=== PATIENT | female | born 1995 | race African-American/Black ===

== ENCOUNTER 2021-11-15 11:56 | Outpatient (RCR) | payer BC, SELFPAY ==
[2021-09-28 15:01] VITALS: BP 110/69; PULSE 83
[2021-10-19 10:27] VITALS: BP 140/66; PULSE 86
[2021-10-26 12:54] VITALS: BP 121/74; PULSE 97
[2021-11-01 12:47] VITALS: BP 141/69; PULSE 94
[2021-11-08 13:17] VITALS: BP 132/86; PULSE 93
[2021-11-15 12:28] VITALS: BP 126/76; PULSE 93
== END 2021-11-26 20:36 | disposition home or self-care (01) ==
LOC: ANHOBOP 11:56
PROVIDERS: PCP Nurse Practitioner Family; Visit Provider Obstetrics & Gynecology
DX: O36.8130 Decreased fetal movements, third trimester, not applicable or unspecified (principal); Z3A.31 31 weeks gestation of pregnancy; Z3A.34 34 weeks gestation of pregnancy; Z3A.35 35 weeks gestation of pregnancy; Z3A.36 36 weeks gestation of pregnancy; Z3A.37 37 weeks gestation of pregnancy; Z3A.38 38 weeks gestation of pregnancy
CPT/HCPCS: 59025

== ENCOUNTER 2021-11-19 13:46 | Inpatient (IN) | payer BC, SELFPAY ==
[2021-11-19] VITALS (12 sets, daily range): BP systolic 117–159; BP diastolic 61–96; PULSE 89–113; RESP 18; TEMP 36.8–37.2; BMI 56.8
[2021-11-19 13:15] LABS: Basophils Percent Auto 0.2 % (0.2-1.2); Eosinophils Absolute Auto 0.1 K/mm3 (0-0.3); Hemoglobin 11.3 g/dL (12.0-15.0); Immature Granulocyte Absolute 0.03 K/mm3 (0.00-0.031); Immature Granulocyte Percent A 0.4 % (0-0.5); Lymphocytes Absolute Auto 1.85 K/mm3 (0.9-3.2); Lymphocytes Percent Auto 22.2 % (18.3-44.2); Mean Corpuscular HGB Conc 32.3 g/dl (32-36); Mean Corpuscular Volume 80.6 fl (80-100); Mean Platelet Volume 10.1 fl (7.4-10.4); Monocytes Absolute Auto 0.5 K/mm3 (0.1-0.6); Monocytes Percent Auto 6.5 % (2.6-8.5); Neutrophils Absolute Auto 5.8 K/mm3 (1.3-6.7); Neutrophils Percent Auto 69.7 % (45.5-73.1); Platelet Count Result 223 k/mm3 (150-375); Red Blood Count 4.34 M/mm3 (4.2-5.4); Red Cell Distribution Width 14.9 % (11.5-14.5); White Blood Count 8.3 K/mm3 (4.5-10.0)
[2021-11-19 13:17] LABS: Add Urine Microscopic? NO; Appearance Urine Clear (Clear); Bilirubin Urine Negative (Negative); Blood Urine Negative (Negative); Color Urine Straw (Yellow); Glucose Urine UA Negative (Negative); Ketones Urine Negative (Negative); Leukocyte Esterase Ur Negative LEU/UL (NEGATIVE); Nitrate Urine Negative (Negative); Protein Urine Negative (Negative); Specific Grav Ur 1.008 (1.001-1.035); Urobilinogen Urine Negative mg/dL (<2.0)
[2021-11-19 13:25] LABS: Creatinine Urine 47.3 mg/dL; Total Protein Urine Random 11 mg/dL; Ur Ttl Prot Creatinine Ratio 0.23 mg/mg (0-0.20)
[2021-11-19 13:30] LABS: Alanine Aminotransferase 9 U/L (4-35); Albumin Level 3.7 g/dL (3.5-5.1); Alkaline Phosphatase 146 U/L (38-126); Anion Gap 5 mmol/L (8-16); Aspartate Amino Transferase 16 U/L (14-36); Bilirubin,Total 0.4 mg/dL (0.2-1.3); Blood Urea Nitrogen 7 mg/dL (7-17); Calcium 9.1 mg/dL (8.4-10.2); Carbon Dioxide 22 mmol/L (22-30); Chloride 104 mmol/L (98-107); Estimated Glomerular Filt Rate > 60; Glucose 87 mg/dL (65-110); Potassium 4.2 mmol/L (3.4-5.0); Sodium 131 mmol/L (137-145); Uric Acid 2.7 mg/dL (2.5-7.5)
--- NOTE | 2021-11-19 13:39 | P.HP_ITS ---
H&P: HPI History of Present Illness Date/Time: 11/19/21 13:39 [facility] Past Medical History Medical History Asthma Surgical History Surgical History History of dilation and curettage 2020 missed AB [place] teeth extracted Family History Family History Grandparent Cervical cancer Father Uterine polyp Social History Social History Smoking status: Never smoker Alcohol intake: unknown Substance use: never Gender identity (if verbalized by the patient): Female Sexual Orientation (if Verbalized by the Patient): Straight or Heterosexual Spiritual care concerns: No Meds Home Medications and Allergies Home Medications Medication Instructions Recorded Confirmed Type PNV cmb#95-ferrous fumarate-FA 1 tablet PO DAILY 11/01/21 11/09/21 History [] aspirin 81 mg PO DAILY 11/01/21 11/09/21 History Allergies Allergy/AdvReac Type Severity Reaction Status Date / Time No Known Allergies Allergy Verified 11/16/21 14:59 Vital Signs Vital Signs - 24 hr 11/19/21 12:46 11/19/21 13:01 11/19/21 13:16 Pulse Rate 92 97 107 H Blood Pressure 150/95 H 159/96 H 149/92 H 11/19/21 13:31 Pulse Rate 110 H Blood Pressure 155/79 H H&P: Results Labs Labs: Short CBC 11/19/21 Range/Units 13:04 WBC 8.3 (4.5-10.0) K/mm3 Hgb 11.3 L (12.0-15.0) g/dL Hct 35.0 L (37.0-47.0) % Plt Count 223 (150-375) k/mm3 BMP 11/19/21 13:04 Sodium 131 L Potassium 4.2 Chloride 104 Carbon Dioxide 22 BUN 7 Creatinine 0.60 L Glucose 87 Calcium 9.1 Liver Function 11/19/21 Range/Units 13:04 Total Bilirubin 0.4 (0.2-1.3) mg/dL AST 16 (14-36) U/L ALT 9 (4-35) U/L Alkaline Phosphatase 146 H (38-126) U/L Albumin 3.7 (3.5-5.1) g/dL Urine 11/19/21 Range/Units 13:04 Urine Color Straw (Yellow) Urine Appearance Clear (Clear) Urine pH 7.0 (5.0-9.0) Ur Specific [place] 1.008 (1.001-1.035) Urine Protein Negative (Negative) mg/dL Urine Glucose (UA) Negative (Negative) mg/dL
--- NOTE | 2021-11-19 13:46 | LDADM ---
This patient, Miguel Ángel Gómez, was admitted to Labor/Delivery/Recovery 108 on 11/19/21 at 13:46. Plans for labor, pain management and were discussed with patient. Patient/family oriented to hospital policies and general routines including ID bracelet, bed and alarms, visiting hours, pain management, procedures, bathroom and other care routines, personal items, smoking policy, room service/diet and guest tray routines, security routines, and visiting hours. Patient/Family are encouraged to report perceived risks to care and to ask questions if they do not understand what they are told or what they should do. See OBIX for further documentation.
--- NOTE | 2021-11-19 13:46 | PM.IMHP ---
H&P: HPI History of Present Illness Date/Time: 11/19/21 13:46 Miguel Ángel is a 26yo @ 38.5 wks (MARIA 11/28/21) who presents from her NST w/ MFM with moderate range BP's. She has never had elevated BPs and denies any GILLESPIE, vision changes, CP, SOB, or RUQ pain. PEC w/u was negative; but she continued having BPs in the 150s/90's. She reports good movement. No ctx, vb or lof. Her is complicated by: - Morbid obesity; BMI >50 - Elevated glucola; normal 3hr OGTT - Gestational hypertension - Mild anemia Chief Complaint: elevated blood pressures Review of Systems Review of Systems: All systems reviewed & are unremarkable except as noted in HPI and below (HPI) [facility] Past Medical History Medical History Asthma Surgical History Surgical History History of dilation and curettage 2020 missed AB [place] teeth extracted Family History Family History Grandparent Cervical cancer Father Uterine polyp Social History Social History Smoking status: Never smoker Alcohol intake: unknown Substance use: never Gender identity (if verbalized by the patient): Female Sexual Orientation (if Verbalized by the Patient): Straight or Heterosexual Spiritual care concerns: No Meds Home Medications and Allergies Home Medications Medication Instructions Recorded Confirmed Type PNV cmb#95-ferrous fumarate-FA 1 tablet PO DAILY 11/01/21 11/09/21 History [] aspirin 81 mg PO DAILY 11/01/21 11/09/21 History Allergies Allergy/AdvReac Type Severity Reaction Status Date / Time No Known Allergies Allergy Verified 11/16/21 14:59 Vital Signs Vital Signs - 24 hr 11/19/21 12:46 11/19/21 13:01 11/19/21 13:16 Pulse Rate 92 97 107 H Blood Pressure 150/95 H 159/96 H 149/92 H 11/19/21 13:31 Pulse Rate 110 H Blood Pressure 155/79 H Exam Const: General: cooperative, comfortable and no acute distress Nutritional Appearance: obese morbidly obese Resp: Effort & Inspection: normal respiratory effort Cardio: Rate: regular rate GI: GI Palp: Yes Soft to palpation and No Tenderness to palpation present (GI) : Other: FHT's: 130's/ mod tristen/ + accels/ no decels - cat 1 TOCO: no ctx Cervix: Membranes: intact presentation: cephalic Skin: General skin exam: normal color Neuro: General: patient oriented x3 Psych: Appearance: grossly normal Affect: normal affect Attitude: cooperative H&P: Results Labs Labs: Short CBC 11/19/21 Range/Units 13:04 WBC 8.3 (4.5-10.0) K/mm3 Hgb 11.3 L (12.0-15.0) g/dL Hct 35.0 L (37.0-47.0) % Plt Count 223 (150-375) k/mm3 BMP 11/19/21 13:04 Sodium 131 L Potassium 4.2 Chloride 104 Carbon Dioxide 22 BUN 7 Creatinine 0.60 L Glucose 87 Calcium 9.1 Liver Function 11/19/21 Range/Units 13:04 Total Bilirubin 0.4 (0.2-1.3) mg/dL AST 16 (14-36) U/L ALT 9 (4-35) U/L Alkaline Phosphatase 146 H (38-126) U/L Albumin 3.7 (3.5-5.1) g/dL Urine 11/19/21 Range/Units 13:04 Urine Color Straw (Yellow) Urine Appearance Clear (Clear) Urine pH 7.0 (5.0-9.0) Ur Specific [place] 1.008 (1.001-1.035) Urine Protein Negative (Negative) mg/dL Urine Glucose (UA) Negative (Negative) mg/dL Assessment and Plan Assessment and plan (1) Gestational hypertension: Qualifiers: Trimester: third trimester Qualified Code(s): O13.3 - Gestational [-induced] hypertension without significant proteinuria, third trimester Code(s): O13.9 - Gestational [-induced] hypertension without significant proteinuria, unspecified trimester Status: Acute (2) : Qualifiers: Weeks of gestation: 38 weeks Qualified Code(s)
--- NOTE | 2021-11-19 13:54 | WPDHPUPDATE1 ---
History and Physical Update Update Date/Time: 11/19/21 13:54 History and Physical has been reviewed, including an updated exam of the patient. There are NO changes in the patient's condition. Risks, benefits, and alternatives have been discussed and questions answered. Patient agrees to proceed with procedure.
[2021-11-19] MEDS: DINOPROSTONE 10 MG VAG INSERT VAGINAL (15:34)
[2021-11-20] VITALS (289 sets, daily range): BP systolic 95–161; BP diastolic 40–101; PULSE 18–244; RESP 18–20; TEMP 36.8–38.4; O2SAT 95–100
[2021-11-20] MEDS: LACTATED RINGERS 1,000 ML 125 ML IV CONT ×3 (06:00→19:48)
--- NOTE | 2021-11-20 08:23 | PM.OBPNLAB ---
Pain Control Date/time seen: 11/20/21 08:23 Pain control: tolerating well Pelvic Exam Dilation (cm): 2 Effacement (%): 70 station: -3 Amniotic membrane status: Intact Contractions Monitor mode: External Contraction frequency: 2 (-4) Contraction pattern: Regular Status status: Category l Assessment and Plan Assessment: induction ongoing Plan: continuous present management Comments: - s/p cervidil overnight - dietrich balloon with 30cc of fluid placed @ 0815 - low dose pitocin to max of [address] if contractions space out - anesthesia consult PRN pain or IV pains meds - Continuous monitoring; reassuring currently
[2021-11-20] MEDS: ONDANSETRON INJ 4 MG/2 ML VIAL IV PUSH (08:28)
[2021-11-20] MEDS: fentaNYL CITRATE INJ (*CRX) 100 MCG/2 ML VIAL IV PUSH (08:29)
[2021-11-20] MEDS: LACTATED RINGERS 1,000 ML 999 ML IV CONT (09:09)
--- NOTE | 2021-11-20 09:49 | WPDANESEPPF ---
Anes - Initial Pre Proc Eval Procedure: labor epidural Date/Time: 11/20/21 09:49 Surgeon: Timmy Peña MD Pre Op Diagnosis: labor pain Pre Op Diagnosis: Induction of Labor for HIP Patient Data Age: 26 Gender: F Height: 1.57 m Weight: 141 kg Last Vital Signs Temp 36.8 C 11/20/21 08:00 Pulse 84 11/20/21 09:48 Resp 18 11/20/21 05:52 BP 139/78 11/20/21 09:48 Pulse Ox 97 11/20/21 09:46 Allergies Allergy/AdvReac Type Severity Reaction Status Date / Time No Known Allergies Allergy Verified 11/16/21 14:59 Home Medications Medication Instructions Recorded Confirmed Type PNV cmb#95-ferrous fumarate-FA 1 tablet PO DAILY 11/01/21 11/09/21 History [] aspirin 81 mg PO DAILY 11/01/21 11/09/21 History Laboratory Tests 11/19/21 11/19/21 11/19/21 13:04 13:04 13:04 WBC 8.3 K/mm3 K/mm3 (4.5-10.0) RBC 4.34 M/mm3 M/mm3 (4.2-5.4) Hgb 11.3 g/dL L g/dL (12.0-15.0) Hct 35.0 % L % (37.0-47.0) MCV 80.6 fl fl (80-100) MCH 26.0 pg pg (26-34) MCHC 32.3 g/dl g/dl (32-36) RDW 14.9 % H % (11.5-14.5) Plt Count 223 k/mm3 k/mm3 (150-375) MPV 10.1 fl fl (7.4-10.4) Immature Gran % (Auto) 0.4 % % (0-0.5) Neut % (Auto) 69.7 % % (45.5-73.1) Lymph % (Auto) 22.2 % % (18.3-44.2) [place] % (Auto) 6.5 % % (2.6-8.5) Eos % (Auto) 1.0 % % (0-4.4) Baso % (Auto) 0.2 % % (0.2-1.2) Lymph # (Auto) 1.85 K/mm3 K/mm3 (0.9-3.2) [place] # (Auto) 0.5 K/mm3 K/mm3 (0.1-0.6) Eos # (Auto) 0.1 K/mm3 K/mm3 (0-0.3) Baso # (Auto) 0.0 K/mm3 K/mm3 (0.0-0.1) Abs Immat Gran (auto) 0.03 K/mm3 K/mm3 (0.00-0.031) Absolute Neuts (auto) 5.8 K/mm3 K/mm3 (1.3-6.7) Absolute Nucleated RBC 0.0 K/mm3 K/mm3 (0.0-0.012) Nucleated RBC % 0.0 % % (0.0-0.2) Sodium Potassium Chloride Carbon Dioxide Anion Gap BUN Creatinine Estim Creat Clear Calc Estimated GFR Glucose Uric Acid Calcium Total Bilirubin AST ALT Alkaline Phosphatase Total Protein Albumin Urine Color Straw (Yellow) Urine Appearance Clear (Clear) Urine pH 7.0 (5.0-9.0) Ur Specific [place] 1.008 (1.001-1.035) Urine Protein Negative mg/dL mg/dL (Negative) Urine Glucose (UA) Negative mg/dL mg/dL (Negative) Urine Ketones Negative mg/dL mg/dL (Negative) Ur Blood (Man) Negative (Negative) Urine Nitrate Negative (Negative) Urine Bilirubin Negative (Negative) Urine Urobilinogen Negative mg/dL mg/dL (<2.0) Ur Leukocyte Esterase Negative MICHELLE/UL MICHELLE/UL (NEGATIVE) U Random Total Protein 11 mg/dL mg/dL Urine Creatinine 47.3 mg/dL mg/dL Protein/Creat Ratio 2 0.23 mg/mg H mg/mg (0-0.20) RPR Blood Type Antibody Screen 11/19/21 11/19/21 11/19/21 13:04 15:17 15:17 WBC RBC Hgb Hct MCV MCH MCHC RDW Plt Count MPV Immature Gran % (Auto) Neut % (Auto) Lymph % (Auto) [place] % (Auto) Eos % (Auto) Baso % (Auto) Lymph # (Auto) [place] # (Auto) Eos # (Auto) Baso # (Auto) Abs Immat Gran (auto) Absolute Neuts (auto) Absolute Nucleated RBC Nucleated RBC % Sodium 131 mmol/L L mmol/L (137-145) Potassium
--- NOTE | 2021-11-20 11:20 | PM.OBPNLAB ---
Pain Control Date/time seen: 11/20/21 11:20 Pain control: epidural Pelvic Exam Dilation (cm): 4 Effacement (%): 70 station: -3 Amniotic membrane status: Ruptured (AROM, clear 1115) Contractions Monitor mode: Internal (placed this exam) Contraction frequency: 4 Contraction pattern: Regular Status status: Category l Assessment and Plan Assessment: induction ongoing Plan: continuous present management Comments: - Internalized on this exam for better monitoring due to morbid obesity - Pitocin augmentation if contractions space out or are not adequate
[2021-11-20] MEDS: OXYTOCIN 30 UNITS/NS 500 ML 30 UNITS/500 ML BAG IV CONT (12:04)
--- NOTE | 2021-11-20 21:30 | PM.OBPNLAB ---
Pain Control Date/time seen: 11/20/21 21:30 Pain control: epidural Pelvic Exam Dilation (cm): 7 Effacement (%): 80 station: -1 Amniotic membrane status: Ruptured (AROM, clear 1115) Contractions Monitor mode: Internal (placed this exam) Contraction frequency: 2 (-3) Contraction pattern: Regular Contraction intensity: Strong/Firm (~70mvu per contraction) Status status: Category l Assessment and Plan Pitocin rate (mU/min): 22 Assessment: active labor Comments: - Pt noted to have fever; diagnosed to chorioamnionitis-- will start amp/gent - Active labor and yari adequately; if no cervical change in 4 hours, would be for c/s - Anesthesia for epidural bolus for better left sided pain control
[2021-11-20] MEDS: AMPICILLIN 2 GM/NS 100 ML 2 GM/100 ML BAG 200 GM XX (22:05)
[2021-11-20] MEDS: GENTAMICIN 80MG/SOD CHL 50 ML 80 MG/50 ML BAG 100 MG IVPB (22:40)
[2021-11-21] VITALS (38 sets, daily range): BP systolic 120–146; BP diastolic 62–106; PULSE 71–133; RESP 16–18; TEMP 36.7–36.9; O2SAT 96–100
--- NOTE | 2021-11-21 01:12 | PM.OBPRVD ---
OB - Delivery Note Procedure Delivery date: 11/21/21 events: Induced HTN and Labor Induction Intrapartal events: Febrile (chorioamnionitis) Induction method: per cervidil protocol Delivery augmentation: rupture of membranes and pitocin Delivery monitor: internal FHT and internal uterine Route of delivery: Laceration Description: Perineal - 1st Degree Delivery repair: vicryl Specimen: Yes (placenta) Quantitative Blood Loss (ml): 350 Anesthesia type: Epidural Disposition: floor Baby Date of : 11/21/21 Time of : 00:55 Weeks of gestation at delivery: 39 Infant gender: Female Weight (pounds): 7 Weight (ounces): 8 presentation: vertex position: Left Occiput Anterior Placenta delivery description: Expressed cord vessel description: 3 Vessels score one minute: 7 score five minutes: 9 Narrative: Miguel Ángel progressed to complete dilation with strong urge to push. She pushed for approximately 15 minutes with good maternal effort and delivered the head over intact perineum. No nuchal cord was palpated. She easily delivered the 's shoulders and body without complication. The infant was immediately placed skin to skin. The umbilical cord was clamped and cut and she was taken to the warmer for evaluation and with stimulation, a cry was heard. With Pitocin running and gentle downward traction on the cord, the placenta delivered without complications. A bimanual massage was performed and good tone with minimal bleeding was noted. She was examined and a first-degree perineal laceration was noted. The perineal laceration was repaired in the normal fashion using 2 0 Vicryl. Good hemostasis was noted. Sponge, lap, instrument, and needle counts were correct at the end of the procedure. Mom and baby were left bonding in the birthing suite in a stable condition. [facility] Delivery Billing Delivery Delivery: Delivery Charge
[2021-11-21] MEDS: OXYTOCIN 30 UNITS/NS 500 ML 30 UNITS/500 ML BAG 125 UNITS IV CONT (01:22)
[2021-11-21] MEDS: ACETAMINOPHEN 325 MG TABLET 650 MG PO ×4 (02:12→19:38)
[2021-11-21] MEDS: IBUPROFEN 600 MG TABLET PO ×3 (02:13→16:17)
[2021-11-21 03:41] LABS: Glucose Point of Care 132 mg/dl (65-105)
[2021-11-21] MEDS: AMPICILLIN 2 GM/NS 100 ML 2 GM/100 ML BAG 200 GM XX ×3 (04:44→16:18)
[2021-11-21] MEDS: GENTAMICIN 80MG/SOD CHL 50 ML 80 MG/50 ML BAG 100 MG IVPB ×2 (07:03→15:14)
[2021-11-21] MEDS: DOCUSATE SODIUM 100 MG CAPSULE PO ×2 (07:52→16:17)
[2021-11-21] MEDS: MULTIVIT/MIN/PREN/FOL AC/IRON TABLET 1 TAB PO (07:52)
--- NOTE | 2021-11-21 16:58 | WPDANLDPN2 ---
Anes-Prog Note L&D Date/Time: 11/21/21 16:58 Comfortable throughout: labor and delivery Neuraxial method: epidural Epidural/Spinal procedure site: clean & non-tender Neuro status: Neuro function grossly intact. Cardiovascular status: normal Respiratory status: normal Airway patency: baseline Mental status: baseline Post-Op hydration status: normal Vital Signs: Last Vital Signs Temp 98.4 F 11/21/21 12:00 Pulse 80 11/21/21 12:00 Resp 16 11/21/21 12:00 BP 127/68 11/21/21 12:00 Pulse Ox 100 11/21/21 12:00 Pain score (VAS): 11/01 I/O: Intake & Output 11/21/21 11/21/21 11/21/21 07:59 15:59 23:59 Intake Total 450 750 Output Total 730 750 Balance -280 0 Post-procedural complaints: none Patient feedback: Patient satisfied with anesthetic care.
[2021-11-22] VITALS (9 sets, daily range): BP systolic 128–156; BP diastolic 69–90; PULSE 69–87; RESP 16–18; TEMP 36.3–36.9; O2SAT 99–100
[2021-11-22] MEDS: IBUPROFEN 600 MG TABLET PO ×2 (03:36→13:09)
[2021-11-22 04:32] LABS: Basophils Percent Auto 0.2 % (0.2-1.2); Eosinophils Absolute Auto 0.2 K/mm3 (0-0.3); Eosinophils Percent Auto 1.1 % (0-4.4); Hematocrit 33.4 % (37.0-47.0); Hemoglobin 10.7 g/dL (12.0-15.0); Immature Granulocyte Percent A 0.6 % (0-0.5); Lymphocytes Absolute Auto 3.94 K/mm3 (0.9-3.2); Lymphocytes Percent Auto 24.4 % (18.3-44.2); Mean Corpuscular Volume 81.3 fl (80-100); Mean Platelet Volume 10.7 fl (7.4-10.4); Monocytes Percent Auto 6.4 % (2.6-8.5); Neutrophils Absolute Auto 10.9 K/mm3 (1.3-6.7); Neutrophils Percent Auto 67.3 % (45.5-73.1); Platelet Count Result 257 k/mm3 (150-375); Red Blood Count 4.11 M/mm3 (4.2-5.4); Red Cell Distribution Width 15.3 % (11.5-14.5); White Blood Count 16.1 K/mm3 (4.5-10.0)
[2021-11-22 04:44] LABS: Alanine Aminotransferase 9 U/L (4-35); Albumin Level 3.3 g/dL (3.5-5.1); Alkaline Phosphatase 129 U/L (38-126); Anion Gap 5 mmol/L (8-16); Aspartate Amino Transferase 20 U/L (14-36); Bilirubin,Total 0.3 mg/dL (0.2-1.3); Blood Urea Nitrogen 7 mg/dL (7-17); Calcium 8.8 mg/dL (8.4-10.2); Carbon Dioxide 20 mmol/L (22-30); Chloride 106 mmol/L (98-107); Estimated CRCL calculation 143 ml/min; Estimated Glomerular Filt Rate > 60; Glucose 81 mg/dL (65-110); Sodium 131 mmol/L (137-145)
[2021-11-22 06:08] LABS: Rapid Plasma Reagin Non-Reactive (NonReactive)
[2021-11-22] MEDS: ACETAMINOPHEN 325 MG TABLET 650 MG PO ×2 (07:52→17:16)
[2021-11-22] MEDS: DOCUSATE SODIUM 100 MG CAPSULE PO ×2 (07:53→17:17)
[2021-11-22] MEDS: MULTIVIT/MIN/PREN/FOL AC/IRON TABLET 1 TAB PO (07:53)
--- NOTE | 2021-11-22 09:22 | PC.NURSE ---
0823 - 0844 Introductions were made and mother/father led the discussion of her desires and plans to feeding her baby. Reviewed handwashing to prevent infection before and after taking care of her baby. Mother verbalizes she is able to independently latch effectively at times, pump human milk and parents are supplementing infant with formula. Discussed how to watch for early feeding cues, place infant skin to skin, then feeding baby when showing readiness or every 2-3 hours. Reviewed positioning/alignment with the use of the mom and baby guide and demonstration. Mom moves well into the football position. Encouraged mother with infant skin to skin, then to the left breast in football position using nipple to nose with asymmetrical 140-degree latch. Infants swallow bursts heard occasionally. She denies any nipple discomfort. Reviewed there is to be no pain with , how to detach from the breast, visuals to watch for to confirm effective . Reviewed effective latching with resources tool and hand out visual. Nipple tenderness is relieved with improving positioning and effective latching. Infant was able to maintain effective latch. Mother is feeding as needed to meet requirements. Baby detached and nipple was not misshaped. Assisted mom with baby to the right breast in the football position, baby latched effectively. Educated parents of listening and watching for swallowing. has swallowing bursts of 2:1 and 3:1 with rocking motion and pauses. Dad assist with being assertive with drinking at the breast and not sleeping. Mother understands the importance of skin to skin with baby. Mother has verbalized understanding/ demonstrated watching for feeding cues for responsive feeding or how to stimulate infant to initiate from the start of the last feeding. Mother voiced understanding to feed when she sees feeding cues, 8-12 times in 24 hours approximately every 2-3 hours from the start of the last feeding or she has discomfort with nursing. Dr. Saini entered the room. Reported to primary RN. 0944 - Offered syringes for feeding infant human milk that was expressed earlier. Dad had put the 1-3ml of human milk into the 2 oz formula bottle and was going to feed the baby the bottle. Reviewed mothers desires and plans to feed the infant for 6 months. Education given on infants needs at this time. Parents shown burping, swaddling and reviewed content sleeping infant. Parents verbalized understanding and will call for assistance with the next feeding.
--- NOTE | 2021-11-22 12:13 | PM.OBPNVD ---
OB - PN: Subj Subjective Date/time seen: 11/22/21 12:13 Narrative: PPD#1 Miguel Ángel reports doing well today. 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 Her pain is controlled. Afebrile; completed 24 hours of antibiotics. She is tolerating regular diet, voiding, passing gas, and ambulating without issues. She is breast feeding; having some issues. Had a small panic attack; but declines medications at this time. OB - PN: Obj Data Labs CBC & Chem 7: 11/22/21 03:45 11/22/21 03:45 Labs: Laboratory Results - last 24 hr 11/19/21 11/22/21 11/22/21 15:17 03:45 03:45 WBC 16.1 H RBC 4.11 L Hgb 10.7 L Hct 33.4 L MCV 81.3 MCH 26.0 MCHC 32.0 RDW 15.3 H Plt Count 257 MPV 10.7 H Immature Gran % (Auto) 0.6 H Neut % (Auto) 67.3 Lymph % (Auto) 24.4 [place] % (Auto) 6.4 Eos % (Auto) 1.1 Baso % (Auto) 0.2 Lymph # (Auto) 3.94 H [place] # (Auto) 1.0 H Eos # (Auto) 0.2 Baso # (Auto) 0.0 Abs Immat Gran (auto) 0.10 H Absolute Neuts (auto) 10.9 H Absolute Nucleated RBC 0.0 Nucleated RBC % 0.0 Sodium 131 L Potassium 4.0 Chloride 106 Carbon Dioxide 20 L Anion Gap 5 L BUN 7 Creatinine 0.70 Estim Creat Clear Calc 143 Estimated GFR > 60 Glucose 81 Calcium 8.8 Total Bilirubin 0.3 AST 20 ALT 9 Alkaline Phosphatase 129 H Total Protein 6.0 L Albumin 3.3 L RPR Non-reactive OB - PN A/P Assessment and Plan (1) Normal vaginal delivery of first : Code(s): O80 - Encounter for full-term uncomplicated delivery Status: Acute (2) Gestational hypertension: Qualifiers: Trimester: third trimester Qualified Code(s): O13.3 - Gestational [-induced] hypertension without significant proteinuria, third trimester Code(s): O13.9 - Gestational [-induced] hypertension without significant proteinuria, unspecified trimester Status: Acute Plan day: 1 Plan: routine care and discharge home (tomorrow) Comments: - Pelvic rest; take meds as prescribed - ER return precautions: fever, n/v/abd pain, bleeding, HTN Time Spent With Patient Time: Total time spent is greater than 50% in coordination of care (as documented) at patient's floor/unit and/or counseling patient: Review of Systems Constitutional: Constitutional: Denies chills, Denies fever(s) and Denies headache(s) Eyes: Eyes: Denies change in vision ENT: Denies dizziness and Denies headache(s) Cardiovascular: Cardiovascular: Denies chest pain, Denies palpitations and Denies dyspnea Respiratory: Respiratory: Denies cough and Denies dyspnea Gastrointestinal: Gastrointestinal: Denies nausea and Denies vomiting Neurologic: Denies dizziness and Denies headache(s) Endocrine: Endocrine: Denies palpitations Exam Const: General: cooperative, comfortable and no acute distress Nutritional Appearance: obese morbidly obese Orientation/consciousness: patient oriented x3 Resp: Effort & Inspection: normal respiratory effort Auscultation: clear to auscultation bilaterally Cardio: Rate: regular rate GI: Inspection: non-distended GI Palp: No abdominal tenderness and Yes Soft to palpation Auscultation: normal bowel sounds : Other: fundus firm Skin: General skin exam: normal color Neuro: General: patient oriented x3 Extrem: General: normal to inspection Psych: Appearance: grossly normal Affect: normal affect Attitude: cooperative
[2021-11-22] MEDS: ZOLPIDEM TARTRATE (*CRX) 5 MG TABLET PO (21:13)
[2021-11-23] MEDS: IBUPROFEN 600 MG TABLET PO ×2 (00:11→11:19)
[2021-11-23 05:00] VITALS: BP 138/85
[2021-11-23 07:45] VITALS: BP 133/78; PULSE 75; RESP 18; TEMP 36.7; O2SAT 100
[2021-11-23] MEDS: MULTIVIT/MIN/PREN/FOL AC/IRON TABLET 1 TAB PO (11:23)
[2021-11-23] MEDS: DOCUSATE SODIUM 100 MG CAPSULE PO (11:23)
--- NOTE | 2021-11-23 14:20 | PC.NURSE ---
1415 - Consulted with patient for follow up. Reviewed feeding cues, frequencies 8-12 times in a 24 hour period about 2-3 hours watching for feeding cues of readiness. Discussed supplementing, duration of feedings, feeding elimination flow sheet, and signs of adequate intake. Mom states she has been infant since her milk came in but didn't call for latch assistance. Baby is in the bassinet with a pacifier. Reinforced teaching of feeding cues, burping baby and no discomfort with . Mom states there is no discomfort with . Reported to RN mother has been supplementing formula and will breastfeed at home. Discussed feeding frequencies. Mother holding and encouraged feeding when cues are seen. Infant has had an irregular feeding schedule and adequate feedings in 24 hours. Reinforced teaching of feeding baby with mom and baby guide as added resource, gassy tummy, sucking for comfort, burping and good feeding frequencies of more like 3 hours and not every hour. Instructed mother to call out for RN assistance if she is unable to latch infant for feeding or she has discomfort with nursing before she leaves for home. Mother voiced understanding of watching for feeding cues to promote responsive feedings and milk production approximately every 3 hours and other information provided.
--- NOTE | 2021-11-23 17:10 | PM.OBDSVD ---
DS: Admitting Diagnosis Discharge Date 11/23/21 Admitting Diagnosis Elevated blood pressures DS: Discharge Diagnosis Discharge Diagnosis (1) Morbid obesity: Code(s): E66.01 - Morbid (severe) obesity due to excess calories Status: Acute (2) Normal vaginal delivery of first : Code(s): O80 - Encounter for full-term uncomplicated delivery Status: Acute (3) Gestational hypertension: Qualifiers: Trimester: third trimester Qualified Code(s): O13.3 - Gestational [-induced] hypertension without significant proteinuria, third trimester Code(s): O13.9 - Gestational [-induced] hypertension without significant proteinuria, unspecified trimester Status: Acute OB - DS: Summary OB Procedures : NST and Ultrasound OB Procedures Intrapartum: Spontaneous Vag Delivery OB Procedures: : None Peripartum Data Infant Delivery Method: Natural Vaginal Laceration Description: Perineal - 1st Degree complications: none [place] 1: Gender: Female Disposition of : home Status at Discharge Functional status at discharge: independent ambulation Overall status at discharge: patient is back to baseline Time Spent with Patient Time attestation: Total time spent providing and/or coordinating discharge services: Time spent: Less than 30 minutes Exam Const: General: cooperative, comfortable and no acute distress Nutritional Appearance: obese morbidly obese Orientation/consciousness: patient oriented x3 Resp: Effort & Inspection: normal respiratory effort Auscultation: clear to auscultation bilaterally Cardio: Rate: regular rate GI: Inspection: non-distended GI Palp: No abdominal tenderness and Yes Soft to palpation Auscultation: normal bowel sounds : Other: fundus firm Skin: General skin exam: normal color Neuro: General: patient oriented x3 Extrem: General: normal to inspection Psych: Appearance: grossly normal Affect: normal affect Attitude: cooperative DS: Data Data Completed and Pending Pending studies at discharge: Pending at discharge 11/21/21 00:59 Surgical [PTH] Routine Discharge Plan Discharge Attending physician on discharge: Trina Chaudhary Discharging Clinician: Trina Chaudhary Anticipated Discharge Date/Time: 11/23/21 11:00 Patient Disposition: Home, Self-Care Activity: may shower, may drive after 2 weeks and pelvic rest Diet: regular Discharge Instructions: Education: Mom and Baby Guide Given to: Mother Follow-Up: Call your delivering provider's office for an appointment to be seen in: 2 Weeks Mom and baby should come to the [facility] for the follow-up appointment. Appointment Date/Time: Wednesday, November 24, 2021 at 11:00 am What to expect at your follow-up visit: Physical Assessment Call [phone] if you are unable to keep your appointment time. BREAST CARE: * Wear a snug supportive bra. * For engorgement discomfort: Breast Feeding: * Apply warm moist washcloths * Express milk as needed to relieve engorgement * Wear loose clothing Bottle Feeding: * May apply ice packs * For sore nipples: * Identify correct latch-on * Apply warm moist washcloths before and after nursing * Air dry nipples after nursing * May apply Lansinoh cream to nipples EPISIOTOMY/PERINEAL CARE: * Until bleeding stops, use your susan bottle after urinating * Change your pad frequently throughout the day * You may take sitz baths several times a day (fill your bathtub with warm water and soak for 20 minutes.) Do NOT bathe in the water * No tub baths until seen by your physician - You may shower ACTIVITY: * Rest as much as possible. * Do not exercise or lift anything heavier than your baby (such as laundry or other children.) * Avoid stairs or driving as
--- NOTE | 2021-11-23 19:05 | PC.NURSE ---
1200 Patient viewed the discharge video Mother & Baby Care, The First Two Weeks . Patient was given the opportunity and encouraged to ask questions. Patient verbalized understanding of information shared and has been given the mother/baby guide for home reference.
[2021-11-24 11:05] VITALS: BP 140/93; PULSE 85; RESP 20; TEMP 37.2; O2SAT 100
== END 2021-11-23 15:37 | disposition home or self-care (01) | DRG 807 ==
LOC: ANHOBOP 13:49 → ANHLDR 13:49 → ANHOB2 11-22 12:16 → ANHLDR 11-25 14:45 → ANHOB2 11-25 14:45
PROVIDERS: Admitting Provider Obstetrics & Gynecology; PCP Nurse Practitioner Family; Visit Provider Obstetrics & Gynecology
DX: O41.1230 Chorioamnionitis, third trimester, not applicable or unspecified (principal); Z37.0 Single live birth; O99.214 Obesity complicating childbirth; E66.01 Morbid (severe) obesity due to excess calories; O13.4 Gestational [pregnancy-induced] hypertension without significant proteinuria, complicating childbirth; O99.02 Anemia complicating childbirth; D64.9 Anemia, unspecified; O70.0 First degree perineal laceration during delivery; O76 Abnormality in fetal heart rate and rhythm complicating labor and delivery; Z3A.38 38 weeks gestation of pregnancy
CPT/HCPCS: 36415; 80053; 81003; 82570; 82948; 84156; 84550; 85025; 86592; 86850; 86900; 86901; 87086; 88307; A9270; J0290; J1580; J2405; J2590; J2795; J3010; J7120

== ENCOUNTER 2024-04-29 11:21 | Outpatient (CLI) | payer BC, SELFPAY ==
[2024-04-29 12:07] LABS: Beta HCG Quantitative 455.77 mIU/ML
== END 2024-04-29 11:22 | disposition home or self-care (01) ==
LOC: ANHLAB 11:23
PROVIDERS: PCP Internal Medicine; Visit Provider Student in an Organized Health Care Education/Training Program
DX: N91.1 Secondary amenorrhea (principal); E23.0 Hypopituitarism
CPT/HCPCS: 36415; 84144; 84702

== ENCOUNTER 2024-05-01 13:20 | Outpatient (CLI) | payer BC, SELFPAY | END 2024-05-01 13:21 | disposition home or self-care (01) | LOC: ANHLAB 13:21 | PROVIDERS: PCP Internal Medicine; Visit Provider Student in an Organized Health Care Education/Training Program | DX: Z34.90 Encounter for supervision of normal pregnancy, unspecified, unspecified trimester (principal); Z3A.38 38 weeks gestation of pregnancy | CPT/HCPCS: 36415; 84702 ==

== ENCOUNTER 2024-06-01 10:25 | Outpatient (CLI) | payer BC, SELFPAY ==
[2024-06-01 12:03] LABS: Basophils Percent Auto 0.2 % (0.2-1.2); Eosinophils Absolute Auto 0.1 K/mm3 (0-0.3); Eosinophils Percent Auto 0.8 % (0-4.4); Hemoglobin 11.3 g/dL (12.0-15.0); Immature Granulocyte Absolute 0.03 K/mm3 (0.00-0.031); Immature Granulocyte Percent A 0.5 % (0-0.5); Lymphocytes Absolute Auto 1.57 K/mm3 (0.9-3.2); Lymphocytes Percent Auto 25.5 % (18.3-44.2); Mean Corpuscular HGB Conc 32.3 g/dl (32-36); Mean Corpuscular Hemoglobin 27.2 pg (26-34); Mean Corpuscular Volume 84.1 fl (80-100); Mean Platelet Volume 9.3 fl (7.4-10.4); Monocytes Absolute Auto 0.4 K/mm3 (0.1-0.6); Monocytes Percent Auto 6.2 % (2.6-8.5); Neutrophils Absolute Auto 4.1 K/mm3 (1.3-6.7); Neutrophils Percent Auto 66.8 % (45.5-73.1); Platelet Count Result 246 k/mm3 (150-375); Red Blood Count 4.16 M/mm3 (4.2-5.4); White Blood Count 6.2 K/mm3 (4.5-10.0)
[2024-06-01 12:16] LABS: Alanine Aminotransferase 11 U/L (6-35); Albumin Level 3.8 g/dL (3.5-5.1); Alkaline Phosphatase 68 U/L (38-126); Anion Gap 10 mmol/L (4-12); Aspartate Amino Transferase 15 U/L (14-36); Bilirubin,Total 0.5 mg/dL (0.2-1.3); Blood Urea Nitrogen 6 mg/dL (7-17); Calcium 8.7 mg/dL (8.4-10.2); Carbon Dioxide 25 mmol/L (22-30); Chloride 98 mmol/L (98-107); Estimated Glomerular Filt Rate > 60; Glucose 97 mg/dL (65-110); Glucose 1 Hour PP 50gm Dose 97 mg/dL; Potassium 3.4 mmol/L (3.4-5.0); Sodium 133 mmol/L (137-145)
[2024-06-01 12:17] LABS: Creatinine Urine 67.3 mg/dL; Total Protein Urine Random 8 mg/dL
[2024-06-01 12:56] LABS: HIV 1/2 Ab P24 Ag Result Negative (Negative)
[2024-06-01 13:07] LABS: Hemoglobin A1C 5.3 % (<5.7)
[2024-06-01 13:07] LABS: Thyroid Stimulating Hormone Reflex 0.459 uIU/mL (0.465-4.68)
[2024-06-01 14:33] LABS: Rapid Plasma Reagin Non-Reactive (NonReactive)
[2024-06-01 15:31] LABS: Free T4 Free Thyroxine Reflex 1.29 ng/dL (0.78-2.19)
[2024-06-01 16:13] LABS: Total Triiodothyronine (T3) 1.62 NG/ML (0.97-1.69)
[2024-06-02 08:40] LABS: Hepatitis B Surface Antigen Negative (Negative)
[2024-06-03 12:22] LABS: Rubella IgG Antibody 12.5 IU/ML
[2024-06-03 12:28] LABS: CMV IgG Antibody >10.00 U/mL
[2024-06-03 15:26] LABS: Varicella IgG Antibody <135.00 index
== END 2024-06-01 10:26 | disposition home or self-care (01) ==
LOC: ANHLAB 10:26
PROVIDERS: PCP Internal Medicine; Visit Provider Obstetrics & Gynecology
DX: E66.01 Morbid (severe) obesity due to excess calories (principal); Z87.59 Personal history of other complications of pregnancy, childbirth and the puerperium; N91.2 Amenorrhea, unspecified
CPT/HCPCS: 36415; 80053; 81050; 82570; 82947; 83036; 84156; 84439; 84443; 84480; 84702; 85025; 85660; 86592; 86644; 86703; 86747; 86762; 86787; 86850; 86900; 86901; 87086; 87088; 87340; G0432

== ENCOUNTER 2024-08-05 12:39 | Emergency (ER) | payer BC, SELFPAY ==
[2024-08-05 12:53] VITALS: BP 147/82; PULSE 87; RESP 16; TEMP 36.8; O2SAT 100
--- NOTE | 2024-08-05 13:06 | ED.GENADULT ---
HPI - General Adult General Chief complaint: Abdominal Pain Stated complaint: abd pain - 18 weeks gestation Time Seen by Provider: 08/05/24 12:55 History of Present Illness HPI narrative: 29-year-old female that is presents emergency department for evaluation for lower abdominal pain. Patient states the pain does feel similar to her previous round ligament pain but she felt this was just more intense. Patient states while she was driving here she did begin to feel the baby moving which is the 1st time during this and this also caused some concern for patient initially presented to [facility] and she was referred to the emergency department since she is under 20 weeks . Patient denies any current nausea vomiting denies any constipation or diarrhea denies any vaginal bleeding discharge or fluid. Related Data Home Medications Medication Instructions Recorded Confirmed docosahexaenoic acid 200 mg mg PO 05/29/24 07/24/24 capsule ( DHA) Allergies Allergy/AdvReac Type Severity Reaction Status Date / Time No Known Allergies Allergy Verified 08/05/24 13:38 Review of Systems Review of Systems: All systems reviewed & are unremarkable except as noted in HPI and below PMFSH Past Medical History Medical History Asthma Surgical History Surgical History History of dilation and curettage 2020 missed AB [place] teeth extracted Family History Family History Grandparent Cervical cancer Father Uterine polyp Social History Social History Smoking status: Never smoker Alcohol intake: current Alcohol use details: soically Substance use: never Substance use type: does not use Lack of Transportation: No Lack of Food: Never True Current Housing: I Have Housing Concerned About Future Housing: No Difficulty Paying Gas/Electric Bills: No Difficulty Paying for Meds: No Currently Unemployed: No Education: High School Diploma/GED Difficulty w/ Childcare or Family Care: No Living arrangements: with family Occupation/Education: occupation Gender identity (if verbalized by the patient): Female Sexual Orientation (if Verbalized by the Patient): Straight or Heterosexual Spiritual care concerns: No Exam Narrative: APPEARANCE: Well appearing, no pain, no distress, well-nourished. HEAD: normocephalic, atraumatic. EYES: PERRLA/EOMI, conjunctivae clear. NOSE: Normal no drainage EARS:TMS clear with good light reflex. THROAT: Pharynx clear, no exudate. NECK: Supple. No adenopathy, no masses. RESPIRATORY: Airway patent, respirations nonlabored. Clear to auscultation bilaterally, no rales, rhonchi, wheezing. CARDIOVASCULAR: Regular rate and rhythm without murmurs rubs or gallops. ABDOMINAL: Gravid abdomen with no focal tenderness to palpation MUSCULOSKELETAL: Moves all extremities. Strength/ROM intact, No edema, No calf tenderness. NEURO: Alert. Cranial nerves II through XII intact. Good gait. Good coordination SKIN: Warm, dry. Normal Color Course Course Emergency Course: Patient felt improved with rehydration and patient was discharged home. Vital Signs Vital signs: Vital Signs Temperature 98.3 F 08/05/24 12:53 Pulse Rate 87 08/05/24 12:53 Respiratory Rate 16 08/05/24 12:53 Blood Pressure 147/82 H 08/05/24 12:53 Pulse Oximetry 100 08/05/24 12:53 Temperature 97.9 F 08/05/24 13:32 Pulse Rate 70 08/05/24 14:58 Respiratory Rate 16 08/05/24 14:58 Blood Pressure 126/88 08/05/24 14:58 Pulse Oximetry 98 08/05/24 14:58 Medical Decision Making [facility] Narrative Medical decision making narrative: 29-year-old female that is 18 weeks presented emergency department for evaluation of lower abdominal
[2024-08-05] MEDS: SODIUM CHLORIDE 0.9% IV 1,000 ML 999 ML IV CONT (13:25)
[2024-08-05 13:30] LABS: Basophils Percent Auto 0.3 % (0.2-1.2); Eosinophils Percent Auto 0.5 % (0-4.4); Hematocrit 34.3 % (37.0-47.0); Hemoglobin 11.2 g/dL (12.0-15.0); Immature Granulocyte Absolute 0.03 K/mm3 (0.00-0.031); Immature Granulocyte Percent A 0.4 % (0-0.5); Lymphocytes Absolute Auto 1.75 K/mm3 (0.9-3.2); Mean Corpuscular HGB Conc 32.7 g/dl (32-36); Mean Corpuscular Volume 82.7 fl (80-100); Mean Platelet Volume 10.1 fl (7.4-10.4); Monocytes Absolute Auto 0.5 K/mm3 (0.1-0.6); Monocytes Percent Auto 6.3 % (2.6-8.5); Neutrophils Absolute Auto 5.3 K/mm3 (1.3-6.7); Neutrophils Percent Auto 69.5 % (45.5-73.1); Platelet Count Result 251 k/mm3 (150-375); Red Blood Count 4.15 M/mm3 (4.2-5.4); Red Cell Distribution Width 13.6 % (11.5-14.5); White Blood Count 7.6 K/mm3 (4.5-10.0)
[2024-08-05 13:32] VITALS: BP 127/71; PULSE 77; RESP 16; TEMP 36.6; O2SAT 100
[2024-08-05 13:41] LABS: Alanine Aminotransferase 10 U/L (6-35); Albumin Level 3.7 g/dL (3.5-5.1); Alkaline Phosphatase 72 U/L (38-126); Anion Gap 9 mmol/L (4-12); Aspartate Amino Transferase 19 U/L (14-36); Bilirubin,Total 0.3 mg/dL (0.2-1.3); Blood Urea Nitrogen 11 mg/dL (7-17); Carbon Dioxide 23 mmol/L (22-30); Chloride 101 mmol/L (98-107); Estimated CRCL calculation 127 ml/min; Estimated Glomerular Filt Rate > 60; Glucose 90 mg/dL (65-110); Sodium 133 mmol/L (137-145)
--- NOTE | 2024-08-05 13:41 | PC.NURSE ---
Per MD order OB called by YVONNE Rm who states they are not coming to bedside. MD Paul notified and ultrasound performed of fetus by .
[2024-08-05 13:42] LABS: Prothrombin Time 13.4 Seconds (11.1-14.7)
[2024-08-05 13:43] LABS: Partial Thromboplastin Time 26.5 Seconds (22.3-36.8)
[2024-08-05 13:49] LABS: Add Urine Microscopic? YES; Appearance Urine Turbid (Clear); Bacteria Urine None Seen /hpf; Bilirubin Urine Negative (Negative); Blood Urine Negative (Negative); Color Urine Dark Yellow (Yellow); Glucose Urine UA Negative (Negative); Ketones Urine Trace mg/dL (Negative); Leukocyte Esterase Ur Negative LEU/UL (Negative); Mucus Urine Present /lpf; Nitrate Urine Negative (Negative); Non Pathogenic Casts 0-2; Protein Urine Trace mg/dL (Negative); RBC Urine 0-2 /hpf (0-2); Specific Grav Ur 1.033 (1.001-1.035); Squamous Epithelial Cell Urine Few /hpf (Few); WBC Urine 0-5 /hpf (0-3); pH Urine 5.5 (5.0-9.0)
[2024-08-05 13:50] LABS: Amorphous Sediment Urine Moderate
[2024-08-05 14:58] VITALS: BP 126/88; PULSE 70; RESP 16; O2SAT 98
== END 2024-08-05 15:02 | disposition home or self-care (01) ==
PROVIDERS: Emergency Provider Emergency Medicine; PCP Internal Medicine
DX: O26.892 Other specified pregnancy related conditions, second trimester (principal); R10.30 Lower abdominal pain, unspecified; M54.9 Dorsalgia, unspecified; O99.512 Diseases of the respiratory system complicating pregnancy, second trimester; J45.909 Unspecified asthma, uncomplicated; Z3A.18 18 weeks gestation of pregnancy
CPT/HCPCS: 36415; 80053; 81001; 85025; 85610; 85730; 96360; 99283; J7030

== ENCOUNTER 2024-09-19 20:42 | Outpatient (CLI) | payer BC, SELFPAY ==
[2024-09-19 21:03] VITALS: PULSE 87; O2SAT 100
[2024-09-19 21:08] VITALS: BP 142/63; PULSE 82; PULSE 87; O2SAT 100
[2024-09-19 21:17] VITALS: BP 128/74; PULSE 86
[2024-09-19 21:23] LABS: Basophils Percent Auto 0.3 % (0.2-1.2); Eosinophils Absolute Auto 0.1 K/mm3 (0-0.3); Eosinophils Percent Auto 0.6 % (0-4.4); Hematocrit 31.7 % (37.0-47.0); Hemoglobin 10.3 g/dL (12.0-15.0); Immature Granulocyte Absolute 0.03 K/mm3 (0.00-0.031); Immature Granulocyte Percent A 0.4 % (0-0.5); Lymphocytes Absolute Auto 2.15 K/mm3 (0.9-3.2); Lymphocytes Percent Auto 27.9 % (18.3-44.2); Mean Corpuscular HGB Conc 32.5 g/dl (32-36); Mean Corpuscular Hemoglobin 26.5 pg (26-34); Mean Corpuscular Volume 81.5 fl (80-100); Mean Platelet Volume 10.1 fl (7.4-10.4); Monocytes Absolute Auto 0.7 K/mm3 (0.1-0.6); Monocytes Percent Auto 8.8 % (2.6-8.5); Neutrophils Absolute Auto 4.8 K/mm3 (1.3-6.7); Platelet Count Result 231 k/mm3 (150-375); Red Blood Count 3.89 M/mm3 (4.2-5.4); Red Cell Distribution Width 14.2 % (11.5-14.5); White Blood Count 7.7 K/mm3 (4.5-10.0)
[2024-09-19 21:27] LABS: Add Urine Microscopic? NO; Appearance Urine Clear (Clear); Bilirubin Urine Negative (Negative); Blood Urine Negative (Negative); Color Urine Yellow (Yellow); Glucose Urine UA Negative (Negative); Ketones Urine Negative (Negative); Leukocyte Esterase Ur Negative LEU/UL (Negative); Nitrate Urine Negative (Negative); Protein Urine Negative (Negative)
[2024-09-19 21:32] VITALS: BP 134/61; PULSE 78
[2024-09-19 21:33] LABS: Alanine Aminotransferase 10 U/L (6-35); Albumin Level 3.5 g/dL (3.5-5.1); Alkaline Phosphatase 77 U/L (38-126); Anion Gap 7 mmol/L (4-12); Aspartate Amino Transferase 14 U/L (14-36); Bilirubin,Total 0.4 mg/dL (0.2-1.3); Blood Urea Nitrogen 12 mg/dL (7-17); Calcium 9.1 mg/dL (8.4-10.2); Carbon Dioxide 24 mmol/L (22-30); Chloride 101 mmol/L (98-107); Estimated Glomerular Filt Rate > 60; Glucose 91 mg/dL (65-110); Sodium 132 mmol/L (137-145); Uric Acid 2.8 mg/dL (2.5-7.5)
[2024-09-19 21:34] LABS: Creatinine Urine 105.9 mg/dL; Total Protein Urine Random 10 mg/dL; Ur Ttl Prot Creatinine Ratio 0.09 mg/mg (0-0.20)
[2024-09-19 21:47] VITALS: BP 139/59; PULSE 82
--- NOTE | 2024-09-19 22:00 | OBADM ---
This patient, Miguel Ángel Gómez, admitted to the OB room OB [facility] for observation. Patient/family oriented to hospital policies and general routines including ID bracelet, bed and alarms, visiting hours, pain management, procedures, bathroom and other care routines, personal items, smoking policy, room service/diet, and visiting hours. Patient/Family are encouraged to report perceived risks to care and to ask questions if they do not understand what they are told or what they should do.
== END 2024-09-19 22:21 | disposition home or self-care (01) ==
LOC: ANHOBOP 20:49 → ANHOBPP 20:59
PROVIDERS: PCP Internal Medicine; Visit Provider Obstetrics & Gynecology
DX: O13.9 Gestational [pregnancy-induced] hypertension without significant proteinuria, unspecified trimester (principal); Z3A.00 Weeks of gestation of pregnancy not specified
CPT/HCPCS: 36415; 80053; 81003; 82570; 84156; 84550; 85025; 99199

== ENCOUNTER 2024-10-10 09:08 | Outpatient (CLI) | payer BC, SELFPAY ==
[2024-10-10 11:38] LABS: Basophils Percent Auto 0.3 % (0.2-1.2); Eosinophils Percent Auto 0.5 % (0-4.4); Hematocrit 34.1 % (37.0-47.0); Hemoglobin 10.8 g/dL (12.0-15.0); Immature Granulocyte Absolute 0.04 K/mm3 (0.00-0.031); Immature Granulocyte Percent A 0.5 % (0-0.5); Lymphocytes Absolute Auto 1.65 K/mm3 (0.9-3.2); Lymphocytes Percent Auto 21.1 % (18.3-44.2); Mean Corpuscular HGB Conc 31.7 g/dl (32-36); Mean Corpuscular Hemoglobin 25.9 pg (26-34); Mean Corpuscular Volume 81.8 fl (80-100); Mean Platelet Volume 10.6 fl (7.4-10.4); Monocytes Absolute Auto 0.4 K/mm3 (0.1-0.6); Monocytes Percent Auto 5.5 % (2.6-8.5); Neutrophils Absolute Auto 5.6 K/mm3 (1.3-6.7); Neutrophils Percent Auto 72.1 % (45.5-73.1); Platelet Count Result 250 k/mm3 (150-375); Red Blood Count 4.17 M/mm3 (4.2-5.4); Red Cell Distribution Width 14.5 % (11.5-14.5); White Blood Count 7.8 K/mm3 (4.5-10.0)
[2024-10-10 12:15] LABS: HIV 1/2 Ab P24 Ag Result Negative (Negative)
[2024-10-10 13:37] LABS: Rapid Plasma Reagin Non-Reactive (NonReactive)
[2024-10-10 14:04] LABS: Glucose 1 Hour PP 50gm Dose 112 mg/dL
== END 2024-10-10 09:09 | disposition home or self-care (01) ==
LOC: ANHLAB 09:09
PROVIDERS: PCP Internal Medicine; Visit Provider Student in an Organized Health Care Education/Training Program
DX: Z34.90 Encounter for supervision of normal pregnancy, unspecified, unspecified trimester (principal)
CPT/HCPCS: 36415; 82947; 85025; 86592; 86703; G0432

== ENCOUNTER 2024-10-29 15:45 | Observation (INO) | payer BC, SELFPAY ==
[2024-10-29] VITALS (8 sets, daily range): BP systolic 142–159; BP diastolic 73–80; PULSE 82–91
--- NOTE | 2024-10-30 08:12 | PM.OBTRLD ---
OB - Triage/Final Diagnosis Visit Information Reason for evaluation: threatened labor Comments/Additional reasons for admission: I have assessed the risk for this patient, Miguel Ángel Gómez, and determined that she would benefit from observation care. Evaluation Vital signs: Vital Signs - 24 hr 10/29/24 16:47 10/29/24 16:53 10/29/24 17:01 Pulse Rate 83 85 86 Blood Pressure 159/73 H 144/78 H 146/79 H 10/29/24 17:16 10/29/24 17:31 10/29/24 17:46 Pulse Rate 91 91 82 Blood Pressure 147/79 H 144/77 H 142/80 H 10/29/24 18:01 10/29/24 18:16 Pulse Rate 88 89 Blood Pressure 148/78 H 144/77 H
== END 2024-10-29 18:15 | disposition home or self-care (01) ==
LOC: ANHOBPP 15:59
PROVIDERS: Admitting Provider Obstetrics & Gynecology; PCP Internal Medicine; Visit Provider Obstetrics & Gynecology
DX: O47.03 False labor before 37 completed weeks of gestation, third trimester (principal); Z3A.30 30 weeks gestation of pregnancy
CPT/HCPCS: G0378; G0379

== ENCOUNTER 2024-12-04 13:50 | Outpatient (RCR) | payer BC, SELFPAY ==
[2024-12-04 14:21] VITALS: BP 133/70; PULSE 82
== END 2025-02-12 17:06 | disposition home or self-care (01) ==
LOC: ANHOBOP 13:50
PROVIDERS: Visit Provider Obstetrics & Gynecology
DX: O36.8130 Decreased fetal movements, third trimester, not applicable or unspecified (principal); Z3A.35 35 weeks gestation of pregnancy
CPT/HCPCS: 59025

== ENCOUNTER 2024-12-26 16:57 | Inpatient (IN) | payer BC, SELFPAY ==
[2024-12-26] VITALS (12 sets, daily range): BP systolic 118–141; BP diastolic 70–89; PULSE 78–83; TEMP 36.8; BMI 61.8
--- OUTSIDE RECORDS SUMMARY | 2024-12-26 17:07 | XMS_ITS | Continuity of Care Document ---
Author Organization [facility] Address [address] [place] [address] Phone Care Team Providers Care Salt Grinder Name Role Phone Management, Case Unavailable Unavailable Unavailable Unavailable Unavailable Allergies, Adverse Reactions, Alerts Substance Reaction Status Criticality No Known Allergies Active No Inform ation Medications Medication Instructions Dosage Effective Dates (start - stop) Status Comments letrozole 2.5 mg tablet take 1 tablet by oral route every day for 5 days starting on cycle day #3 2.5 MG - Active 28 mg iron-800 mcg tablet take 1 tablet by oral route every day 1 tablet - Active hydroxyzine HCl 10 mg tablet take every 8 hours as needed for anxiety - Active cetirizine 10 mg tablet take 1 tablet by oral route every day 10 MG - Active albuterol sulfate HFA 90 mcg/actuation aerosol inhaler inhale 2 puff by Oral route every 4 - 6 hours as needed 2 puff - Active Procedures Procedure Date OB US >/= 14 Weeks, Single Fetus 2020 [facility] RISK ASSMT care, at-risk assessment care, at-risk enhanced service; antepartum management URINE TEST, BY VISUAL COLOR CO MPARISON METHODS OFFICE O/P EST 5 MIN OFFICE/OUTPATIENT VISIT, EST Urinalysis, Auto, w/o Scope URINE TEST, BY VISUAL COLOR CO MPARISON METHODS HEMOGLOBIN; GLYCOSYLATED (A1C) TREATMENT OF MISSED , COMPLETED SURGICALLY; SECOND TRIMESTER OFFICE/OUTPATIENT VISIT, EST URINE TEST, BY VISUAL COLOR CO MPARISON METHODS Voided Encounter OFFICE/OUTPATIENT VISIT, EST Non-OB Ultrasound, Pelvic, Complete OFFICE OUTPT EST 25 MIN Urinalysis, Auto, w/o Scope URINE TEST, BY VISUAL COLOR CO MPARISON METHODS Therapeutic behavioral services, per 15 minutes OFFICE/OUTPATIENT VISIT, EST PERIODIC COMPREHENSIVE PREVENTIVE MED RE E/M; ESTABLISHED PATIENT; 18-39 URINE TEST, BY VISUAL COLOR CO MPARISON METHODS Urinalysis, Auto, w/o Scope OFFICE/OUTPATIENT VISIT, EST URINE TEST, BY VISUAL COLOR CO MPARISON METHODS OFFICE/OUTPATIENT VISIT, EST OB US < 14 Weeks, Single Fetus 18 OFFICE/OUTPATIENT VISIT, EST URINE TEST, BY VISUAL COLOR CO MPARISON METHODS Urinalysis, Auto, w/o Scope OB US < 14 Weeks, Single Fetus MENTAL HEALTH ASSESSMENT, BY NON-PHYSICI AN care, at-risk assessment care, at-risk enhanced service; antepartum management URINE TEST, BY VISUAL COLOR CO MPARISON METHODS Voided Encounter Therapeutic behavioral services, per 15 minutes SPECIMEN HANDLING SCREENING PAPANICOLAOU SMEAR ; OBTAINING, PREPARING AND CONVEYANCE OF CERVICAL PERIODIC COMPREHENSIVE PREVENTIVE MED RE E/M; ESTABLISHED PATIENT; 18- Urinalysis, Auto, w/o Scope URINE TEST, BY VISUAL COLOR CO MPARISON METHODS Urinalysis, Auto, w/o Scope HEMOGLOBIN; GLYCOSYLATED (A1C) 18 URINE TEST, BY VISUAL COLOR CO MPARISON METHODS OFFICE OUTPT EST 25 MIN 1ST COMPRE PREV MED E/M NEW PT 18-39 Jan Urinalysis, Auto, w/o Scope URINE TEST, BY VISUAL COLOR CO MPARISON METHODS COLLECTION OF VENOUS BLOOD BY VENIPUNCTU RE IAAD EIA HEP B SURF AG HEPATITIS C ANTIBODY; HIV-1 Antigen, W/HIV-1 & HIV-2 Antibody, Single Re OFFICE OUTPT EST 25 MIN OFFICE OUTPT EST 25 MIN Alcohol and/or drug screening 5 BLOOD COUNT; COMPLETE (CBC), AUTOMATED D IFF COMPRE METAB PANEL LIPID PANEL COLLECTION OF VENOUS BLOOD BY VENIPUNCTU RE THYROID STIMULATING HORMONE (TSH) THYROXINE; FREE COLLECTION OF VENOUS BLOOD BY VENIPUNCTU RE CALCIFEDIOL (25-OH VITAMIN D-3) 015 HEMOGLOBIN; GLYCOSYLATED (A1C) 15 COLLECTION OF CAPILLARY BLOOD SPECIMEN ( EG, FINGER, HEEL, EAR STICK) Extraction erupted tooth or exposed root Periodic oral evaluation Periapical Radiographic, first Image Jun Limit oral eval problem focused 015 Dental Panoramic Radiographic Image Dental Bitewings Radiographic, Four Imag es Dental prophylaxis adult Oral hygiene instruction PURE TONE AUDIOMETRY (THRESHOLD); AIR AN D BONE SCREENING TEST OF VISUAL ACUITY, QUANTIT ATIVE, BILATERAL PERIODIC COMPREHENSIVE PREVENTIVE MED RE E/M; ESTABLISHED PATIENT; 10-08 COLLECTION OF VENOUS BLOOD BY VENIPUNCTU RE OFFICE OUTPT EST 25 MIN Dental panoramic film Dental bitewings four films Dental prophylaxis adult Topical Flouride Varnish Oral hygiene instruction Comprehensve oral evaluation OFFICE/OUTPATIENT VISIT, EST OFFICE/OUTPATIENT VISIT, EST PURE TONE AUDIOMETRY (THRESHOLD); AIR AN D BONE SCREENING TEST OF VISUAL ACUITY, QUANTIT ATIVE, BILATERAL COLLECTION OF VENOUS BLOOD BY VENIPUNCTU RE OFFICE OUTPT EST 25 MIN COLLECTION OF VENOUS BLOOD BY VENIPUNCTU RE OFFICE OUTPT EST 25 MIN NUTRITION THERAPY, 1ST ASSESSMENT, EACH 15 MIN COLLECTION OF VENOUS BLOOD BY VENIPUNCTU RE OFFICE OUTPT EST 25 MIN MENINGOCOCCAL VACCINE, IM TDAP VACCINE 7 YR + IM OFFICE OUTPT EST 25 MIN Comprehensve oral evaluation Oral hygiene instruction Dental bitewings two films Topical fluor w/o prophy chi Dental prophylaxis adult PURE TONE AUDIOMETRY (THRESHOLD); AIR ON LY URNLS DIP STICK/TABLET RGNT AUTO W/O BRYSON VFC-VARICELLA VIRUS VACCINE, LIVE, SUBQ USE SENSIMOTR XM W/MANAGER REIMBURSEMENT PK OC DEVIJ W/I&R S PX HCY - Age 5-11, Established Patient, Ful l Screening SKIN TEST; TUBERCULOSIS, INTRADERMAL Jun Dental bitewings two films Dental prophylaxis child Topical fluor w/o prophy chi Oral hygiene instruction Comprehensve oral evaluation OFFICE OUTPT EST 10 MIN URNLS DIP STICK/TABLET RGNT AUTO W/O BRYSON VFC-HEPATITIS A VACCINE, PED IATRIC/ADOLESCENT DOSAGE-2 DOSE SCHEDULE, IM USE CULTURE, BACTERIAL; QUANTITATIVE COLONY COUNT, URINE URINALYSIS; MICROSCOPIC ONLY Extraction erupted tooth or exposed root Limit oral eval problem focused 006 Periapical first film OFFICE CONSULT, 15 MIN, 3 KE Y COMPS: PROB FOCUS HX; PROB FOCUS EXAM; STRTFWD URNLS DIP STICK/TABLET RGNT AUTO W/O BRYSON CULTURE, BACTERIAL; QUANTITATIVE COLONY COUNT, URINE BASIC METABOLIC PANEL CALCIUM TOTAL OFFICE/OUTPATIENT VISIT, EST Advance Directives Directive Yes / No Effective Date File Name No Information Encounters Encounter Description Practice Location Reason(s) For Visit Diagnoses Date Provider Providers Copied on Encounter [facility], [address], [place], [place], [address] [place] [address] , tel:[phone] [facility] No Information Management Case. [address], [place], [address] [place] [address], . tel:[phone] Referring Provider: Ofelia Mosley, [address], [place], [address] [place] [address] . tel:[phone] [facility], [address], [place], [address] [place] [address] , tel:[phone] [facility] No Information 1 Mona Lance. [address], [place], [address] [place] [address], . tel:[phone] Referring Provider: Casi Dunn, [address], [place], [address] [place] [address] . tel:[phone] [facility], [address], [place], [address] [place] [address] , tel:[phone] [facility] Unemployment , unspecified Management Case. [address], [place], [address] [place] [address], . tel:[phone] [facility], [address], [place], [place], [address] , tel:[phone] [facility] routine (chief complaint) Encounter for suprvsn of normal , second weeks gestation of Management Case. [address], [place], [address] [place] [address], . tel:[phone] Referring Provider: Ofelia Mosley, [address], [place], [address] . tel:[phone] [facility], [address], [place], [place], [address] , tel:[phone] [facility] Encounter for test, result unknown 1 Dimitri Gilbert. [address], [place], [place], [address], . tel:[phone] Referring Provider: Ofelia Eid , [address], [place], [address] . tel:[phone] OFFICE O/P EST 5 MIN [facility], [address], [place], [address] , tel:[phone] [facility] Encounter for test, result positive 1 Nurse Registered. [address], [place], [place], [address], . tel:[phone] Referring Provider: Ofelia Eid , [address], [place], [address] . tel:[phone] OFFICE/OUTPATI ENT VISIT, EST [facility], [address], [place], [address] , tel:[phone] [facility] miscarriage f/u (chief complaint) Body mass index (BMI) 50-59.9 , adultFemale infertility, unspecifiedE ncntr for hat lining paster exam (general) (routine) w/o abn findings 0 Ragini Gilbert. [address], [place], [address], . tel:[phone] Referring Provider: Ofelia Eid , [address], [place], [address] . tel:[phone] [facility], [address], [place], [place], [address] , tel:[phone] [facility] No Information 0 Tepe Casi. [address], [place], [place], [address], [place]. [phone] Referring Provider: Casi Dunn, [address], [place], [address] . tel:[phone] OFFICE/OUTPATI ENT VISIT, EST [facility], [address], [place], [address] , [place] tel: [phone] [facility] miscarriage (chief complaint) Body mass index (BMI) 50-59.9 , adultMissed abortionEnco unter for oth general cnsl and advice on contraceptio n 0 Dimitri Gilbert. [address], [place], [address] [place] [address], [place]. tel:[phone] [facility], [address], [place], [address] , tel: [phone] [facility] Encounter for test, result unknown 0 Dimitri Gilbert. [address], [place], [address] [place] [address], [place]. tel:[phone] [facility], [address], [place], [address] , [place] tel: [phone] [facility] PT only (chief complaint) No Information 0 Nurse Registered. [address], [place], [address] [place] [address], [place]. [phone] OFFICE/OUTPATI ENT VISIT, EST [facility], [address], [place], [address] , [place] tel: [phone] [facility] + home UPT (chief complaint) state, incidental 0 Ragini Gilbert. [address], [place], [address] [place] [address], [place]. tel:[phone] [facility], [address], [place], [address] , [place] tel: [phone] [facility] No Information 0 Mona Lance. [address], [place], [place], [address], . tel:[phone] Referring Provider: Casi Mona, [address], [place], [address] . tel:[phone] OFFICE OUTPT EST 25 MIN [facility], [address], [place], [address] , tel:[phone] [facility] Infertility (chief complaint) Body mass index (BMI) 50-59.9 , adultFemale infertility, unspecifiedE ncntr for hat lining paster exam (general) (routine) w/o abn findings 0 Ragini Gilbert. [address], [place], [place], [address], . tel:[phone] Referring Provider: Ofelia Eid , [address], [place], [address] . tel:[phone] [facility], [address], [place], [address] , [place] tel:[phone] [facility] Anxiety disorder, unspecifiedO ther obesity due to excess calories 0 Jag Acosta. [address], [place], [place], [address], . tel:[phone] OFFICE/OUTPATI ENT VISIT, EST [facility], [address], [place], [address] , tel:[phone] [facility] sleep (chief complaint) Body mass index (BMI) 50-59.9 , adultSleep disorder, unspecifiedA nxiety disorder, unspecified 0 Omar Dorado. [address], [place], [place], [address], . tel:[phone] Referring Provider: Ofelia Eid , [address], [place], [address] . tel:[phone] PERIODIC COMPREHENSIVE PREVENTIVE MED REE/M; ESTABLISHED PATIENT; 18-39 [facility], [address], [place], [address] , [place] tel:[phone] [facility] annual exam (chief complaint) Body mass index (BMI) 50-59.9 , adultEncntr for hat lining paster exam (general) (routine) w/o abn findingsEnco unter for screening for malignant neoplasm of cervixEncoun ter for oth screening for malignant neoplasm of breastEncoun ter for oth general cnsl and advice on procreation 9 Ragini Gilbert. [address], [place], [place], [address], . [phone] Referring Provider: Ofelia Eid , [address], [place], [address] . tel:[phone] OFFICE/OUTPATI ENT VISIT, EST [facility], [address], [place], [place], [address] , tel: [phone] [facility] walk in (chief complaint) Body mass index (BMI) 50-59.9 , adultLymphad enopathy 9 Omar Dorado. [address], [place], [place], [address], . [phone] Referring Provider: Ave Nelson, [address], [place], [address] . tel:[phone] OFFICE/OUTPATI ENT VISIT, EST [facility], [address], [place], [place], [address] , tel: [phone] [facility] u/s and labs f/u (chief complaint) Body mass index (BMI) 50-59.9 , adultEncount er for test, result unknownCompl ete or unsp spontaneous without complication 8 Ragini Gilbert. [address], [place], [place], [address], . tel:[phone] [facility], [address], [place], [place], [address] , tel:[phone] [facility] No Information 8 Tepe Casi. [address], [place], [address], [place]. tel:[phone] OFFICE/OUTPATI ENT VISIT, EST [facility], [address], [place], [address] , [place] tel: [phone] [facility] IOB (chief complaint) state, incidentalLe ss than 8 weeks gestation of pregnancyEnc ounter for test, result unknownEncou nter for suprvsn of normal , unsp trimester 8 Ragini Gilbert. [address], [place], [address], [place]. tel:[phone] [facility], [address], [place], [address] , [place] tel: [phone] [facility] No Information Mona Lance. [address], [place], [address], [place]. tel:[phone] Referring Provider: Casi Dunn, [address], [place], [address] . tel:[phone] [facility], [address], [place], [address] , [place] tel: [phone] [facility] routine (chief complaint) Encntr for suprvsn of normal first preg, first trimester8 weeks gestation of 8 Management Case. [address], [place], [address], [place]. tel:[phone] Referring Provider: Ofelia Eid , [address], [place], [address] . tel:[phone] sulting Provider: Annita Turk, [address], [place], [address] . tel:[phone] [facility], [address], [place], [address] , [place] tel: [phone] [facility] Encounter for test, result unknown 8 No Information [facility], [address], [place], [place], [address] , [place] tel: [phone] [facility] Test (chief complaint)Pr egnancy Test (chief complaint) No Information Nurse Registered. [address], [place], [address], [place]. tel:[phone] [facility], [address], [place], [address] , [place] tel: [phone] [facility] Anxiety disorder, unspecified No Information PERIODIC COMPREHENSIVE PREVENTIVE MED REE/M; ESTABLISHED PATIENT; 18-39 [facility], [address], [place], [address] , [place] tel: [phone] [facility] annual exam (chief complaint) Body mass index (BMI) 50-59.9 , adultEncntr for hat lining paster exam (general) (routine) w/o abn findingsEncn tr screen for infections w sexl mode of transmissEnc ounter for oth screening for malignant neoplasm of breastEncoun ter for screening for malignant neoplasm of cervixAnxiet y disorder, unspecifiedE ncounter for oth general cnsl and advice on contraceptio nEncounter for screening for oth infec/parast c diseases Despotovic Ofelia. [address], [place], [address], [place]. tel: [phone] OFFICE OUTPT EST 25 MIN [facility], [address], [place], [address] , [place] tel: [phone] [facility] headache (chief complaint) Body mass index (BMI) 50-59.9 , adultAnxiety HeadacheVita min D deficiencyEn counter for routine adult physical examination w/ abnormal findingOther obesity due to excess calories 8 No Information 1ST COMPRE PREV MED E/M NEW PT 18-39 [facility], [address], [place], [place], [address] , [place] tel: [phone] [facility] annual exam (chief complaint) Encntr for hat lining paster exam (general) (routine) w/o abn findingsEncn tr screen for infections w sexl mode of transmissEnc ounter for oth general cnsl and advice on contraceptio nCounseling, unspecified 6 No Information OFFICE OUTPT EST 25 MIN [facility], [address], [place], [address] , [place] tel: [phone] [facility] DIZZINESS, SWEATING, ELEVATED HR (chief complaint)AL OPECIA (chief complaint) AsthmaOther obesityAnxie tyVitamin D deficiency 6 No Information OFFICE OUTPT EST 25 MIN [facility], [address], [place], [address] , [place] tel: [phone] [facility] Follow up visit (chief complaint) Routine medical examMorbid obesityAsthm a, unspecifiedS creening for alcoholismAb normal weight gain 5 No Information [facility], [address], [place], [address] , [place] tel: [phone] [facility] Dental examination 5 No Information [facility], [address], [place], [place], [address] , [place] tel: [phone] [facility] Dental examination 5 No Information [facility], [address], [place], [place], [address] , [place] tel: [phone] [facility] Dental examination 5 No Information PERIODIC COMPREHENSIVE PREVENTIVE MED REE/M; ESTABLISHED PATIENT; 10-08 [facility], [address], [place], [place], [address] , [place] tel: [phone] [facility] Well Child Visit (chief complaint) Routine infant or child health checkAsthma, unspecified type, unspecifiedR hanane and other nonspecific skin eruptionEnla rgement of lymph nodesRoutine infant or child health check 2 No Information OFFICE OUTPT EST 25 MIN [facility], [address], [place], [place], [address] , [place] tel: [phone] [facility] knot on neck (chief complaint) Enlargement of lymph nodesScreeni ng examination for pulmonary tuberculosis 2 No Information [facility], [address], [place], [place], [address] , [place] tel: [phone] [facility] Dental examination 1 No Information OFFICE/OUTPATI ENT VISIT, EST [facility], [address], [place], [place], [address] , [place] tel: [phone] [facility] immunization delay (chief complaint) Issue of medical certificates Abnormal weight gain 1 No Information OFFICE/OUTPATI ENT VISIT, EST [facility], [address], [place], [address] , [place] tel: [phone] [facility] rash (chief complaint) Pityriasis rosea 1 No Information OFFICE OUTPT EST 25 MIN [facility], [address], [place], [place], [address] , [place] tel: [phone] [facility] Well Child Visit (chief complaint) OverweightIs nicol of medical certificates Screening examination for pulmonary tuberculosis 1 No Information OFFICE OUTPT EST 25 MIN [facility], [address], [place], [place], [address] , [place] tel: [phone] [facility] asthma (chief complaint)ex zema (chief complaint) OverweightMo rbid obesityAsthm a,unspecifie d type, unspecifiedR hanane and other nonspecific skin eruptionVacc ination not carried out because of caregiver refusalConst ipation 0 No Information [facility], [address], [place], [place], [address] , [place] tel: [phone] [facility] Obesity, unspecified 0 No Information OFFICE OUTPT EST 25 MIN [facility], [address], [place], [place], [address] , [place] tel: [phone] [facility] Well Child Visit (chief complaint) Obesity, unspecifiedI ssue of repeat prescription sScreening examination for pulmonary tuberculosis Vaccination not carried out because of patient refusal 0 No Information OFFICE OUTPT EST 25 MIN [facility], [address], [place], [place], [address] , [place] tel: [phone] [facility] sore throat (chief complaint) Abdominal pain, unspecified siteAsthmaNe ed for prophylactic vaccination and inoculation against unspecified single diseaseIssue of repeat prescription s 0 No Information [facility], [address], [place], [place], [address] , [place] tel: [phone] Historic Immunization Location No Information 9 No Information [facility], [address], [place], [place], [address] , [place] tel: [phone] [facility] DENTAL EXAMINATION 8 No Information HCY - Age 5-11, Established Patient, Full Screening [facility], [address], [place], [place], [address] , [place] tel: [phone] [facility] ROUTIN CHILD HEALTH EXAMISSUE MEDICAL CERTIFICATIS NICOL REPEAT PRESCRIPTVAC RYAN FOR SINGL DIS NOS Jun- 7 No Information [facility], [address], [place], [place], [address] , [place] tel: [phone] [facility] DENTAL EXAMINATION 7 No Information OFFICE OUTPT EST 10 MIN [facility], [address], [place], [place], [address] , [place] tel: [phone] [facility] NOCTURNAL ENURESISVACC IN FOR SINGL DIS NOSISSUE REPEAT PRESCRIPT 6 No Information [facility], [address], [place], [address] , [place] tel: [phone] [facility] DENTAL EXAMINATION 6 No Information OFFICE CONSULT, 15 MIN, 3 JERONIMO COMPS: PROB FOCUS HX; PROB FOCUS EXAM; STRTFWD [facility], [address], [place], [place], [address] , [place] tel: [phone] [facility] ECONOMIC PROBLEM 6 No Information OFFICE/OUTPATI ENT VISIT, EST Michelle lee, [address], [place], [address] , [place] tel: [phone] [facility] URIN TRACT INFECTION NOS 200 6 No Information Family History Family Member Type Diagnosis Age At Onset Maternal grandmother Problem (finding) malignant neoplasm of cervix uteri Problem (finding) Family history of Anxie ty Immunizations Vaccine Date Status Comments Tdap administered Source: New Imm unization Record MCV4 (11-55 yrs) administered Source: New Immunization Record VFC-VARICELLA VIRUS VACCINE, LIVE, SUBQ USE administered Source: New Immuniza tion Record VFC-HEPATITIS A VACCINE, PEDIATRIC/ADOLESCENT DOSAGE-2 DOSE SCHEDULE, IM USE administered Source: New Immuni zation Record VFC-HEPATITIS A VACCINE, PEDIATRIC/ADOLESCENT DOSAGE-2 DOSE SCHEDULE, IM USE administered Source: New Immuni zation Record INFLUENZA VACCINE administered Source: Ne w Immunization Record DTP-AC administered Source: New Imm unization Record IMMR IMMUNIZATIONS 0-18 administered Sour ce: New Immunization Record IPV AGES 0-20 administered Source: New Im munization Record Payers Payer name Insurance type Covered alliance party ID Authoriza tion(s) Medicaid - Medical [id number] Social History Type Description Quantity Date Captured Comments Alcohol Use Details Unknown Caffeine Use Details Unknown Tobacco Use Status No Information Smoking Status No Information Sex Female Sexual Orientation Straight or heterosexual Sep Gender Identity Female Chief Complaint And Reason For Visit No Information Reason For Referral Reason For Referral No Information Plan Of Treatment Date Type Action Status Goal Urine Microalbumin. Due on O due Goal Breast exam. Due on 021 due Goal Urine Microalbumin. Due on O due Goal Breast exam. Due on due Goal Urine Microalbumin. Due on O due Goal Breast exam. Due on due Goal Breast exam. Due on due Goal Urine Microalbumin. Due on O due Goal Urine Microalbumin. Due on O due Goal Breast exam. Due on due Goal Breast exam. Due on due Goal Urine Microalbumin. Due on S due Goal Urine Microalbumin. Due on A due Goal Breast exam. Due on due Goal Urine Microalbumin. Due on A due Goal Breast exam. Due on due Goal Breast exam. Due on due Goal Urine Microalbumin. Due on due Goal Urine Microalbumin. Due on due Goal Breast exam. Due on due Goal Urine Microalbumin. Due on due Goal Breast exam. Due on due Goal Breast exam. Due on due Goal Urine Microalbumin. Due on due Goal Breast exam. Due on due Goal Urine Microalbumin. Due on D due Goal Urine Microalbumin. Due on N due Goal Breast exam. Due on due Goal Urine Microalbumin. Due on A due Goal Breast exam. Due on due Goal Breast exam. Due on due Goal Urine Microalbumin. Due on A due Goal Breast exam. Due on due Goal Urine Microalbumin. Due on A due Goal Urine Microalbumin. Due on A due Goal Breast exam. Due on due Goal Urine Microalbumin. Due on A due Goal Breast exam. Due on due Goal Urine Microalbumin. Due on A due Goal Breast exam. Due on due Goal Breast exam. Due on due Goal BMP fasting. Due on due Goal Urine Microalbumin. Due on due Goal Urinalysis. Due on due Goal BMP fasting. Due on due Goal Urine Microalbumin. Due on due Goal Breast exam. Due on due Goal Urinalysis. Due on due Goal Urine Microalbumin. Due on due Goal BMP fasting. Due on due Goal Urinalysis. Due on due Goal Breast exam. Due on due Goal Urinalysis. Due on due Goal Urine Microalbumin. Due on due Goal Breast exam. Due on due Goal BMP fasting. Due on due Goal Urinalysis. Due on due Goal Breast exam. Due on due Goal Urine Microalbumin. Due on due Goal BMP fasting. Due on due Goal Breast exam. Due on due Goal Urinalysis. Due on due Goal BMP fasting. Due on due Goal Urine Microalbumin. Due on due Goal Breast exam. Due on due Goal Urinalysis. Due on due Goal BMP fasting. Due on due Goal TD Vaccine. Due on due Goal Influenza Vaccine. Due on due Goal Urine Microalbumin. Due on due Referral Referred To: HUMBERTO GARVEY Ordered: Referral: HUMBERTO GARVEY. Infectious Disease. Consult. Appointment date/timeframe: 07/31/2012 ordered Referral Ordered: Nutrition. ordered Patient Education Swollen Lymph Nodes: Ca re Instructions completed Future Order: Lab Order Progeste beverley, Immunoassay ([id number]), Scheduled for: Ordered Future Order: Lab Order Cortisol , Free, 24-Hour Urine with Creatinine, LC/MS/MS ([id number]), Scheduled for: Ordered Future Order: Lab Order HCG (Pre gnancy Test) - Urine - POC (OC5), Ordered on: Ordered Future Order: Lab Order HCG (Pre gnancy Test) - Urine - POC (OC5), Ordered on: Ordered Future Order: Lab Order TSH with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
--- OUTSIDE RECORDS SUMMARY | 2024-12-26 17:07 | XMS_ITS | Patient Health Summary ---
Author Organization [facility] Address [address] [place] [address] Care Team Providers Care Bag Sealer Name Role Phone Lorena Tucker APRNROGE Primary Care Provider [phone] Note from [facility],non-owned Affiliates and Associated Physician Practices is amultiple site organization consisting of ambulatory clinics and hospital sitesin [place], [place], [place] and [place]. This disclosure is being madepursuant to the Care Everywhere program and may not contain all information available regarding this patient. Last updated 18.[facility] Allergies No known active allergies Medications * Be aware that medications may not be up to date on this document. Alwaysverify current medications with the patient. * albuterol HFA (PROVENTIL;VENTOLIN;PROAIR) 108 (90 BASE) MCG/ACT inhaler (Started 03/29/2015) Inhale 2 Puffs by mouth every 4 hours as needed for Shortness of Breath or Wheezing. 1 refill left Active Problems Problem Noted Date Diagnosed Date 39 weeks gestation of 11/22/2021 38 weeks gestation of 11/09/2021 Encounter for follow-up ultrasound of crys smita 08/18/2021 BMI 50.0-59.9, adult 07/12/2021 Social History Tobacco Use Types Packs/Day Years Used Date Smoking Tobacco: Never Smokeless Tobacco: Never Alcohol Use Standard Drinks/Week Comments No 0 (1 standard drink = 0.6 oz pur e alcohol) Estimated Date of Delivery Comme nts Yes 01/02/2025 Based on last me nstrual period of 03/28/2024 Sex and Gender Information Value Date Recorded Sex Assigned at Not on file Gender Identity Not on file Sexual Orientation Not on file Last Filed Vital Signs Vital Sign Reading Time Taken Comments Blood Pressure 137/81 12/20/2024 2:36 PM CHOKE REAMER Pulse 79 12/20/2024 2:36 PM CHOKE REAMER Temperature 37 C (98.6 F) 08/19/2019 12:23 PM CDT Respiratory Rate 18 08/19/2019 12:23 PM CDT Oxygen Saturation 99% 08/19/2019 12:23 PM CDT Inhaled Oxygen Concentration - - Weight 151 kg (333 lb) 11/08/2024 2:25 PM CHOKE REAMER Height 157.5 cm (5' 2 ) 11/08/2024 2:25 PM CHOKE REAMER Body Mass Index 60.91 11/08/2024 2:25 PM CHOKE REAMER Procedures * BIOPHYSICAL PROFILE W NST(Performed 12/20/2024) Performed for Encounter for ultrasound to assess growth ([facility]), History of pre-eclampsia in prior , currently ([facility]), History of gestational hypertension, BMI 50.0-59.9, adult ([facility]), 31 weeks gestation of ([facility]), Encounter for screening ([facility]) * BIOPHYSICAL PROFILE WO NST(Performed 12/13/2024) Performed for BMI 60.0-69.9, adult ([facility]), History of pre-eclampsia in prior , currently ([facility]), History of gestational hypertension, Encounter for screening ([facility]), 34 weeksgestation of ([facility]) * BIOPHYSICAL PROFILE WO NST(Performed 12/06/2024) Performed for BMI 60.0-69.9, adult (HCC), History of pre-eclampsia in prior , currently ([facility]), History of gestational hypertension, Encounter for screening ([facility]), 34 weeksgestation of ([facility]) * BIOPHYSICAL PROFILE W NST(Performed 11/29/2024) Performed for Encounter for ultrasound to assess growth ([facility]), History of pre-eclampsia in prior , currently ([facility]), History of gestational hypertension, BMI 50.0-59.9, adult ([facility]), 31 weeks gestation of ([facility]), Encounter for screening ([facility]) * BIOPHYSICAL PROFILE WO NST(Performed 11/22/2024) Performed for BMI 60.0-69.9, adult (HCC), History of pre-eclampsia in prior , currently (HCC), History of gestational hypertension, Encounter for screening (HCC), 34 weeksgestation of (HCC) * BIOPHYSICAL PROFILE W NST(Performed 11/15/2024) Performed for Encounter for ultrasound to assess growth (HCC), History of pre-eclampsia in prior , currently (HCC), History of gestational hypertension, BMI 50.0-59.9, adult (HCC), 31 weeks gestation of (HCC), Encounter for screening (HCC) * BIOPHYSICAL PROFILE W NST(Performed 11/08/2024) Performed for Encounter for ultrasound to assess growth (HCC), History of pre-eclampsia in prior , currently (HCC), History of gestational hypertension, BMI 50.0-59.9, adult (HCC), 31 weeks gestation of (HCC), Encounter for screening (HCC) * SONOGRAM - COMPLETE(Performed 10/11/2024) Performed for Encounter for ultrasound to assess growth (HCC), Encounter for follow-up ultrasound of anatomy (HCC), History of pre-eclampsia in prior , currently (HCC), History of gestational hypertension, Obesity complicating peripregnancy, antepartum, second trimester (HCC), 28 weeks gestation of (HCC) * SONOGRAM - COMPLETE(Performed 09/13/2024) Performed for History of gestational hypertension, History of pre-eclampsia in prior , currently (HCC), BMI 50.0-59.9, adult (HCC), 24 weeks gestation of (HCC), Encounter for follow-up ultrasound of anatomy (HCC) * SONOGRAM - COMPLETE(Performed 08/16/2024) Performed for Encounter for anatomic survey (HCC), History of gestational hypertension, History of pre-eclampsia in prior , currently (HCC), BMI 50.0-59.9, adult (HCC), 20 weeks gestation of (HCC) * BIOPHYSICAL PROFILE WO NST(Performed 11/19/2021) Performed for Encounter for follow-up ultrasound of anatomy (HCC), BMI 50.0-59.9, adult (HCC) * BIOPHYSICAL PROFILE WO NST(Performed 11/12/2021) Performed for Encounter for follow-up ultrasound of anatomy (HCC), BMI 50.0-59.9, adult (HCC) * BIOPHYSICAL PROFILE WO NST(Performed 11/05/2021) Performed for Encounter for follow-up ultrasound of anatomy (HCC), BMI 50.0-59.9, adult (HCC) * SONOGRAM - COMPLETE(Performed 10/08/2021) Performed for Encounter for follow-up ultrasound of anatomy (HCC), BMI 50.0-59.9, adult (HCC), 32 weeks gestation of (HCC) * SONOGRAM - COMPLETE(Performed 09/08/2021) Performed for Encounter for follow-up ultrasound of anatomy (HCC), BMI 50.0-59.9, adult (HCC), 28 weeks gestation of (HCC) * SONOGRAM - COMPLETE(Performed 08/13/2021) Performed for BMI 50.0-59.9, adult (HCC) * SONOGRAM - COMPLETE(Performed 07/16/2021) Performed for BMI 50.0-59.9, adult (HCC) * STREP A SCREEN - POCT (IP) URGENT CARE(Performed 08/19/2019) Performed for Strep pharyngitis * INITIATE RT BRONCHODILATOR PROTOCOL(Performed 03/29/2015) Results * BIOPHYSICAL PROFILE W NST (12/20/2024 1:39 PM CHOKE REAMER) Only the most recent of4 resultswithin the time period is included. 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 Para 1 [id number] 1. live 2021. Gest. age 39 w + 0 d. Sex of child: female. Details: Vaginal delivery, Gestational Hypertension, Chorioamnionitis Lab Tests Test Date Result NIPT Low-risk, Male Completed anatomic survey Maternal Assessment Physical Exam Height 157 cm, 5 ft 2 in. Weight 155 kg, 341 lb. Initial weight 143 kg, 315 lb. BMI 62.37 kg/m . Initial BMI 57.61 kg/m . Weight gain 12 kg, 26 lb Method ====== Transabdominal ultrasound examination. View: Limited by late gestational age and maternal body habitus ========= Espinoza . Number of fetuses: 1 Dating ====== Date Details Gest. age MARIA LMP 03/28/2024 38 w + 1 d 01/02/2025 Stated MARIA 38 w + 1 d 01/02/2025 Assigned dating based on the LMP, selected on 09/13/2024 38 w + 1 d 01/02/2025 General Evaluation Cardiac activity present. FHR 143 bpm. Presentation: cephalic Placenta: Placental site: anterior Amniotic Fluid Assessment == Amount of AF: normal MVP 6.4 cm. NEGRO 13.7 cm. Q1 6.4 cm, Q2 1.8 cm, Q3 1.2 cm, Q4 4.3 cm Biophysical Profile 2: breathing movements 2: Gross body movements 2: tone 2: Amniotic fluid volume NST: reactive 08/01 Biophysical profile score Non Stress Test NST interpretation: reactive. Baseline FHR 135 bpm. Baseline variability: moderate. Accelerations: present. Decelerations: absent. Uterine activity: present, irregular Growth Overview Exam date GA BPD (mm) HC (mm) AC (mm) FL (mm) HL (mm) EFW (g) 09/13/2024 24w 1d 60.1 57% 222.1 35% 197.6 50% 46.7 80% 40 45% 739 72% 10/11/2024 28w 1d 67 9% 257.6 16% 267.2 97% 54 48% 54.1 >99% 1410 86% 11/08/2024 32w 1d 77.8 16% 284.2 4% 300.9 93% 65.3 78% 58.7 93% 2177 77% 12/06/2024 36w 1d 83.6 5% 314.7 8% 363.8 >99% 72.2 68% 61.6 57% 3473 95% Anatomy The following structures appear normal: Abdomen Stomach. Kidneys. Bladder. Impression ========= Single, live, intrauterine at 38w 1d Amniotic fluid volume: normal Biophysical profile: 08/01 Follow-up ======== Continue weekly testing until delivery Coding ====== Procedures [id number]: [place] Uterus Limited 10336: Biophysical Profile W NST [facility] [employer] PACS Anatomical Region Laterality Modality Other 12/20/2024 1:39 PM CHOKE REAMER Timmy Peña MD [facility] ORDERABLES * BIOPHYSICAL PROFILE WO NST (12/13/2024 10:18 AM CHOKE REAMER) Only the most recent of6 resultswithin the time period is included. Linked Results Indication ======== Class IV obesity History ====== OB History 4. Para 1 [id number] 1. live 2021. Gest. age 39 w + 0 d. Sex of child: female. Details: Vaginal delivery, Gestational Hypertension, Chorioamnionitis Lab Tests Test Date Result NIPT Low-risk, Male Completed anatomic survey Maternal Assessment Physical Exam Height 157 cm, 5 ft 2 in. Weight 152 kg, 335 lb. Initial weight 143 kg, 315 lb. BMI 61.27 kg/m . Initial BMI 57.61 kg/m . Weight gain 9 kg, 20 lb Method ====== Transabdominal ultrasound examination. View: Sufficient ========= Espinoza . Number of fetuses: 1 Dating ====== Date Details Gest. age MARIA LMP 03/28/2024 37 w + 1 d 01/02/2025 Stated MARIA 37 w + 1 d 01/02/2025 Assigned dating based on the LMP, selected on 09/13/2024 37 w + 1 d 01/02/2025 General Evaluation Cardiac activity present. FHR 139 bpm. Presentation: cephalic Placenta: Placental site: anterior Amniotic Fluid Assessment == Amount of AF: normal MVP 5.9 cm. NEGRO 11.9 cm. Q1 5.9 cm, Q2 0.0 cm, Q3 3.1 cm, Q4 2.9 cm Biophysical Profile 2: breathing movements 2: Gross body movements 2: tone 2: Amniotic fluid volume NST: reactive 08/01 Biophysical profile score Non Stress Test NST interpretation: reactive. Baseline FHR 135 bpm. Baseline variability: moderate. Accelerations: present Growth Overview Exam date GA BPD (mm) HC (mm) AC (mm) FL (mm) HL (mm) EFW (g) 09/13/2024 24w 1d 60.1 57% 222.1 35% 197.6 50% 46.7 80% 40 45% 739 72% 10/11/2024 28w 1d 67 9% 257.6 16% 267.2 97% 54 48% 54.1 >99% 1410 86% 11/08/2024 32w 1d 77.8 16% 284.2 4% 300.9 93% 65.3 78% 58.7 93% 2177 77% 12/06/2024 36w 1d 83.6 5% 314.7 8% 363.8 >99% 72.2 68% 61.6 57% 3473 95% Anatomy The following structures appear normal: Abdomen Stomach. Kidneys. Bladder. Impression ========= Single, live, intrauterine at 37w 1d Amniotic fluid volume: normal Biophysical profile: 08/01 Follow-up ======== Continue weekly testing Coding ====== Procedures [id number]: US Uterus Limited 43530: Biophysical Profile W NST [employer] PACS Anatomical Region Laterality Modality Other 12/13/2024 10:1 8 AM CHOKE REAMER Cash Templeton MD [facility] ORDERABLES * SONOGRAM - COMPLETE (10/11/2024 9:47 AM CHOKE REAMER) Only the most recent of7 resultswithin the time period is included. Linked Results Indication ======== Incomplete anatomy Obesity, Class III History ====== OB History 4. Para 1 [id number] 1. live 2021. Gest. age 39 w + 0 d. Sex of child: female. Details: Vaginal delivery, Gestational Hypertension, Chorioamnionitis Lab Tests Test Date Result NIPT Low risk, Male Maternal Assessment Physical Exam Height 157 cm, 5 ft 2 in. Weight 149 kg, 328 lb. Initial weight 143 kg, 315 lb. BMI 59.99 kg/m . Initial BMI 57.61 kg/m . Weight gain 6 kg, 13 lb Method ====== Transabdominal ultrasound. View: limited secondary to challenging acoustic properties ========= Espinoza . Number of fetuses: 1 Dating ====== Date Details Gest. age MARIA LMP 03/28/2024 28 w + 1 d 01/02/2025 U/S 10/11/2024 based upon AC, BPD, Femur, HC 28 w + 4 d 12/30/2024 Assigned dating based on the LMP, selected on 09/13/2024 28 w + 1 d 01/02/2025 General Evaluation Cardiac activity present. FHR 138 bpm. Presentation: cephalic Placenta: Placental site: anterior Umbilical cord: Cord vessels: 3 vessel cord. Insertion site: normal insertion Amniotic fluid: Amount of AF: normal. MVP 4.3 cm. NEGRO 15.9 cm. Q1 4.3 cm, Q2 3.5 cm, Q3 4.0 cm, Q4 4.1 cm Biometry BPD 67.0 mm 27w 0d 9% Hadlock HC 257.6 mm 28w 0d 16% Hadlock AC 267.2 mm 30w 6d 97% Hadlock Femur 54.0 mm 28w 4d 48% Hadlock Humerus 54.1 mm 31w 3d >99% Brian HC / AC 0.96 Weight Calculation: EFW 1,410 g 86% Hadlock EFW (lb,oz) 3 lb 2 oz EFW by Hadlock ([id number]) overall normal range, but the AC is >90% Growth Overview Exam date GA BPD (mm) HC (mm) AC (mm) FL (mm) HL (mm) EFW (g) 09/13/2024 24w 1d 60.1 57% 222.1 35% 197.6 50% 46.7 80% 40 45% 739 72% 10/11/2024 28w 1d 67 9% 257.6 16% 267.2 97% 54 48% 54.1 >99% 1410 86% Anatomy The following structures appear normal: Heart / Thorax 3-vessel view. 6-iftenw-rnhdezb view. Aortic arch view. Abdomen Stomach. Kidneys. Bladder. Spine Cervical spine. Thoracic spine. Lumbar spine. Sacral spine. The following structures were documented previously: Head / Neck Cranium. Lateral ventricles. Choroid plexus. Midline falx. Cavum septi pellucidi. Cerebellum. Cisterna magna. Thalami. Nuchal fold. Face Lips. Profile. Nose. Nasal bone. Orbits. Heart / Thorax 4-chamber view. RVOT view. LVOT view. Situs. Bicaval view. Ductal arch view. Great vessels. Right lung. Left lung. Diaphragm. Abdomen Cord insertion. Bowel. Genitals. Extremities / Skeleton Arms. Hands. Legs. Feet. Impression ========= Single, live, intrauterine at 28w 1d size appears overall normal range, but the AC is >90% Amniotic fluid volume: normal No major malformations were seen within the limitations of ultrasound Complete anatomy survey Follow-up ======== Follow up ultrasound in 4 weeks for growth assessment is recommended Begin weekly BPP's at 36 weeks due to maternal obesity Coding ====== Procedures [id number]: US Preg Uterus Follow Up [facility] PACS Anatomical Region Laterality Modality Other 10/11/2024 9:47 AM CHOKE REAMER Albino Redman MD [facility] ORDERABLES * (ABNORMAL) STREP A SCREEN - POCT (IP) URGENT CARE (08/19/2019 12:30 PM CDT) Strep A Rapid POCT Positive(A ) Negative [facility] POCT TESTING QC Verified Yes Yes [facility] POC T TESTING Throat ENTIRE THROAT (SURFACE REGION OF NECK) / Unknown 08/19/2019 12:30 PM CDT [facility] - POINT OF CARE ORDERABLES Performing Organization Address [facility]/State/[facility] Co de Phone Number [facility] POCT TESTING [address] [phone] Care Teams Bag Sealer Relationship Specialty Start Date End Date Lorena Tucker APRN-CNP [address] [id number] PCP - General 11/24/21
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
--- OUTSIDE RECORDS SUMMARY | 2024-12-26 17:08 | XMS_ITS | Referral Summary ---
Author Organization [facility] Address [address] [place] [address] Care Team Providers Care Lecturer In Marketing Name Role Phone Lorena Tucker APRN-RISK AND COMPLIANCE ANALYTICS DIRECTOR Primary Care Provider [phone] Source Comments [facility],non-owned Affiliates and Associated Physician Practices is amultiple site organization consisting of ambulatory clinics and hospital sitesin [place], [place], [place] and [place]. This disclosure is being madepursuant to the Care Everywhere program and may not contain all information available regarding this patient. Last updated 18.[facility] Encounters Date Type Department Care Team Description 12/20/2024 1:43 PM REGISTRY RN - 12/20/2024 11:59 PM REGISTRY RN Hospital Encounter [facility] [address] [place] [address] [id number] Ly Navarro MD MEDART OPERATOR Discharge Disposition: Home or Self Care 12/13/2024 9:45 AM REGISTRY RN - 12/13/2024 11:59 PM REGISTRY RN Hospital Encounter [facility] [address] [place] [address] [id number] Dominga Don MD Discharge Disposition: Home or Self Care 12/06/2024 1:37 PM REGISTRY RN - 12/06/2024 11:59 PM REGISTRY RN Hospital Encounter [facility] [address] [place] [address] [id number] Jacinta Coats MD Discharge Disposition: Home or Self Care 11/29/2024 2:28 PM REGISTRY RN - 11/29/2024 11:59 PM REGISTRY RN Hospital Encounter [facility] [address] [place] [address] [phone] Jacinta Coats MD Discharge Disposition: Home or Self Care 11/22/2024 1:39 PM REGISTRY RN - 11/22/2024 11:59 PM REGISTRY RN Hospital Encounter [facility] [address] [place] [address] [id number] Ge Carbone MD Stewart, Jeffrey D, MD Discharge Disposition: Home or Self Care 11/15/2024 1:40 PM REGISTRY RN - 11/15/2024 11:59 PM REGISTRY RN Hospital Encounter [facility] [address] [place] [address] [id number] Cash Templeton MD MEDART OPERATOR Discharge Disposition: Home or Self Care 11/08/2024 1:39 PM REGISTRY RN - 11/08/2024 11:59 PM REGISTRY RN Hospital Encounter [facility] [address] [place] [address] [id number] Jacinta Coats MD Boyle, Annelee C, MD Discharge Disposition: Home or Self Care 10/11/2024 9:42 AM REGISTRY RN - 10/11/2024 11:59 PM REGISTRY RN Hospital Encounter [facility] [address] [place] [address] [id number] Lamonte Dorantes MD Discharge Disposition: Home or Self Care from Last 3 Months Allergies No known active allergies Medications * Be aware that medications may not be up to date on this document. Alwaysverify current medications with the patient. Medication Sig Dispensed Refills Start Date End Date Status albuterol HFA (PROVENTIL;VENTOLIN; PROAIR) 108 (90 BASE) MCG/ACT inhaler Inhale 2 Puffs by mouth every 4 hours as needed for Shortness of Breath or Wheezing. 1 Inhaler 1 03/29/2015 Active Active Problems Problem Noted Date Diagnosed Date 39 weeks gestation of 11/22/2021 38 weeks gestation of 11/09/2021 Encounter for follow-up ultrasound of crys smita 08/18/2021 BMI 50.0-59.9, adult 07/12/2021 Overview (07/12/2021): A+, ABS neg, Immune, RPR-NR, HIV-NR, 1hr GTT 111 Estimated Date of Delivery Comme nts Yes 01/02/2025 Based on last me nstrual period of 03/28/2024 Social History Tobacco Use Types Packs/Day Years [...] Comments Blood Pressure 137/81 12/20/2024 2:36 PM REGISTRY RN Pulse 79 12/20/2024 2:36 PM REGISTRY RN Temperature 37 C (98.6 F) 08/19/2019 12:23 PM CDT Respiratory Rate 18 08/19/2019 12:23 PM CDT Oxygen Saturation 99% 08/19/2019 12:23 PM CDT Inhaled Oxygen Concentration - - Weight 151 kg (333 lb) 11/08/2024 2:25 PM REGISTRY RN Height 157.5 cm (5' 2 ) 11/08/2024 2:25 PM REGISTRY RN Body Mass Index 60.91 11/08/2024 2:25 PM REGISTRY RN Plan of Treatment Not on file Procedures Procedure Name Priority Date/Time Associated Diagnosis Comments BIOPHYSICAL PROFILE W NST Routine 12/20/2024 1:39 PM REGISTRY RN Encounter for ultrasound to assess growth (HCC) History of pre-eclampsia in prior , currently (HCC) History of gestational hypertension BMI 50.0-59.9, adult (HCC) 31 weeks gestation of (HCC) Encounter for screening (HCC) BIOPHYSICAL PROFILE WO NST Routine 12/13/2024 10:18 AM REGISTRY RN BMI 60.0-69.9, adult (HCC) History of pre-eclampsia in prior , currently (HCC) History of gestational hypertension Encounter for screening (HCC) 34 weeks gestation of (HCC) BIOPHYSICAL PROFILE [facility] Routine 12/06/2024 1:34 PM REGISTRY RN BMI 60.0-69.9, adult (HCC) History of pre-eclampsia in prior , currently (HCC) History of gestational hypertension Encounter for screening (HCC) 34 weeks gestation of (HCC) BIOPHYSICAL PROFILE W [facility] Routine 11/29/2024 2:30 PM REGISTRY RN Encounter for ultrasound to assess growth (HCC) History of pre-eclampsia in prior , currently (HCC) History of gestational hypertension BMI 50.0-59.9, adult (HCC) 31 weeks gestation of (HCC) Encounter for screening (HCC) BIOPHYSICAL PROFILE [facility] Routine 11/22/2024 1:53 PM REGISTRY RN BMI 60.0-69.9, adult (HCC) History of pre-eclampsia in prior , currently (HCC) History of gestational hypertension Encounter for screening (HCC) 34 weeks gestation of (HCC) BIOPHYSICAL PROFILE [facility] Routine 11/15/2024 1:56 PM REGISTRY RN Encounter for ultrasound to assess growth (HCC) History of pre-eclampsia in prior , currently (HCC) History of gestational hypertension BMI 50.0-59.9, adult (HCC) 31 weeks gestation of (HCC) Encounter for screening (HCC) BIOPHYSICAL PROFILE W [facility] Routine 11/08/2024 1:49 PM REGISTRY RN Encounter for ultrasound to assess growth (HCC) History of pre-eclampsia in prior , currently (HCC) History of gestational hypertension BMI 50.0-59.9, adult (HCC) 31 weeks gestation of (HCC) Encounter for screening (HCC) SONOGRAM - COMPLETE Routine 10/11/2024 9 :47 AM REGISTRY RN Encounter for ultrasound to assess growth (HCC) Encounter for follow-up ultrasound of anatomy (HCC) History of pre-eclampsia in prior , currently ([facility]) History of gestational hypertension Obesity complicating peripregnancy, antepartum, second trimester ([facility]) 28 weeks gestation of ([facility]) from Last 3 Months Results * BIOPHYSICAL PROFILE W NST (12/20/2024 1:39 PM REGISTRY RN) Only the most recent of4 resultswithin the time period is included. 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 Para 1 [id number] 1. live 2021. Gest. age 39 w [...] weekly testing until delivery Coding ====== Procedures [id number]: [place] Uterus Limited 29183: Biophysical Profile W NST [facility] [employer] PACS Anatomical Region Laterality Modality Other 12/20/2024 1:39 PM REGISTRY RN Timmy Peña MD [facility] ORDERABLES * BIOPHYSICAL PROFILE WO NST (12/13/2024 10:18 AM REGISTRY RN) Only the most recent of3 resultswithin the time period is included. Linked Results Indication ======== Class IV obesity History ====== OB History 4. Para 1 [id number] 1. live 2021. Gest. age 39 w [...] tone 2: Amniotic fluid volume NST: reactive 10/10 Biophysical profile score Non Stress Test NST [...] ======== Continue weekly testing Coding ====== Procedures [id number]: [place] Uterus Limited 27821: Biophysical Profile W NST [employer] PACS Anatomical Region Laterality Modality Other 12/13/2024 10:1 8 AM REGISTRY RN Cash Templeton MD [facility] ORDERABLES * SONOGRAM - COMPLETE (10/11/2024 9:47 AM REGISTRY RN) Linked Results Indication ======== Incomplete anatomy Obesity, Class III History ====== OB History 4. Para 1 [id number] 1. live 2021. Gest. age 39 w [...] Hadlock Humerus 54.1 mm 31w 3d >99% Biran HC / AC 0.96 Weight Calculation: EFW 1,410 g 86% Hadlock EFW (lb,oz) 3 lb 2 oz EFW by Hadlock ([id number]) overall normal range, but the AC is [...] appear normal: Heart / Thorax 3-vessel view. 4-ufsmpf-omtrcaw view. Aortic arch view. Abdomen Stomach. Kidneys. [...] due to maternal obesity Coding ====== Procedures [id number]: US Preg Uterus Follow Up [facility] [employer] PACS Anatomical Region Laterality Modality Other 10/11/2024 9:47 AM REGISTRY RN Albino Redman MD [facility] ORDERABLES from Last 3 Months Care Teams Lecturer In Marketing Relationship Specialty Start Date End Date Lorena Tucker APRN-SREE [address] [address] PCP - General 11/24/21
--- OUTSIDE RECORDS SUMMARY | 2024-12-26 17:08 | XMS_ITS ---
Author Organization [facility] [address] [facility] [facility] [address] [place] [address] Care Team Providers Care Cigar Bander Hand Name Role Phone Grima KLEIN, [facility] Primary Care Provider Un available Cristina Fernández Unavailable [phone] REASON FOR VISIT Cancel Appointment Request Social History Sex Assigned At : Social History Observation Description Sex Assigned At Unknown Encounters Encounter Location Date Provider Diagnosis [facility] [address] [facility] [address] [place] [address] 11/05/2024 Cristina Fernández Plan Of Treatment No Information Progress Notes * CATA BURTOB:1994 (29 yo F)Acc No.[id number]:11/05/2024 Patient: Frances ARAUZ BRENDA :1995 A ge:29 Y S ex:Female [address] [place], [address] * true * Date: Generated for Jaceki kvng/Faanniag/eTransmitting on: 0 12/26/2024 05:08 PM PRIVATE BRANCH EXCHANGE SERVICE ADVISER
--- OUTSIDE RECORDS SUMMARY | 2024-12-26 17:08 | XMS_ITS | Clinical Summary ---
Author Organization [facility] Address [address] [place] [address] Care Team Providers Care General Assignment Reporter Name Role Phone Lorena Tucker APRNROGE Primary Care Provider [phone] Source Comments [facility] [employer],non-owned Affiliates and Associated Physician Practices is amultiple site organization consisting of ambulatory clinics and hospital sitesin [place], [place], [place] and [place]. This disclosure is being madepursuant to the Care Everywhere program and may not contain all information available regarding this patient. Last updated 18.[facility] [employer] Allergies No known active allergies Medications * [...] on last me nstrual period of 03/28/2024 Encounters Date Type Department Care Team Description 12/20/2024 1:43 PM CHAIRMAN CEO - 12/20/2024 11:59 PM CHAIRMAN CEO Hospital Encounter [facility] [address] [place], [place] [id number] Ly Navarro MD GENERAL MANAGER FOOD Discharge Disposition: Home or Self Care 12/13/2024 9:45 AM CHAIRMAN CEO - 12/13/2024 11:59 PM CHAIRMAN CEO Hospital Encounter [facility] [address] [place] [address] Dominga Don MD Discharge Disposition: Home or Self Care 12/06/2024 1:37 PM CHAIRMAN CEO - 12/06/2024 11:59 PM CHAIRMAN CEO Hospital Encounter [facility] [address] [place], [place] [phone] Jacinta Coats MD Discharge Disposition: Home or Self Care 11/29/2024 2:28 PM CHAIRMAN CEO - 11/29/2024 11:59 PM CHAIRMAN CEO Hospital Encounter [facility] [address] [place] [address] Jacinta Coats MD Discharge Disposition: Home or Self Care 11/22/2024 1:39 PM CHAIRMAN CEO - 11/22/2024 11:59 PM CHAIRMAN CEO Hospital Encounter [facility] [address] [place] [address] Ge Carbone MD Stewart, Jeffrey D, MD Discharge Disposition: Home or Self Care 11/15/2024 1:40 PM CHAIRMAN CEO - 11/15/2024 11:59 PM CHAIRMAN CEO Hospital Encounter [facility] [address] [place] [address] Cash Templeton MD GENERAL MANAGER FOOD Discharge Disposition: Home or Self Care 11/08/2024 1:39 PM CHAIRMAN CEO - 11/08/2024 11:59 PM CHAIRMAN CEO Hospital Encounter [facility] [address] [place] [address] Jacinta Coats MD Boyle, Annelee C, MD Discharge Disposition: Home or Self Care 10/11/2024 9:42 AM CHAIRMAN CEO - 10/11/2024 11:59 PM CHAIRMAN CEO Hospital Encounter [facility] [address] [place] [address] Lamonte Dorantes MD Discharge Disposition: Home or Self Care from Last 3 Months Social History Tobacco Use Types Packs/Day Years [...] Comments Blood Pressure 137/81 12/20/2024 2:36 PM CHAIRMAN CEO Pulse 79 12/20/2024 2:36 PM CHAIRMAN CEO Temperature 37 C (98.6 F) 08/19/2019 12:23 PM CDT Respiratory Rate 18 08/19/2019 12:23 PM CDT Oxygen Saturation 99% 08/19/2019 12:23 PM CDT Inhaled Oxygen Concentration - - Weight 151 kg (333 lb) 11/08/2024 2:25 PM CHAIRMAN CEO Height 157.5 cm (5' 2 ) 11/08/2024 2:25 PM CHAIRMAN CEO Body Mass Index 60.91 11/08/2024 2:25 PM CHAIRMAN CEO Plan of Treatment Health Maintenance Due Date Last Done Comments PAP SMEAR 1995 HIV SCREENING 2011 HEPATITIS C SCREENING 07/16/2014 DTAP/TDAP/TD VACCINES (1 - Tdap) 2015 HEPATITIS B VACCINE (1 of 3 - 19+ 3-dose series) 2015 COVID-19 VACCINE (2023-2 5 season) 2024 07/01/2021, 06/04/2021 INFLUENZA VACCINE (#1) 2024 OB-ONE HOUR GLUCOSE 09/26/2024 OB-TDAP CURRENT 10/03/2024 OB-RHOGAM INJECTION 10/10/2024 DEPRESSION SCREENING 10/23/2024 OB-GROUP B STREP SCREEN 11/28/2024 ZOSTER VACCINE (1 of 2) 2046 HIB VACCINE Aged Out No longer eligi ble based on patient's age to complete this topic HPV VACCINE Aged Out No longer eligi ble based on patient's age to complete this topic MENINGOCOCCAL (Group B) VACCINE Aged Out No longer eligible b ased on patient's age to complete this topic MENINGOCOCCAL VACCINE Aged Out No martita mercy eligible based on patient's age to complete this topic PNEUMOCOCCAL VACCINE Aged Out No long er eligible based on patient's age to complete this topic Respiratory Syncytial Virus (RSV) Vaccine Pt: or over 60 yrs (No Doses Required) Completed Procedures Procedure Name Priority Date/Time Associated Diagnosis Comments BIOPHYSICAL PROFILE W NST Routine 12/20/2024 1:39 PM CHAIRMAN CEO Encounter for ultrasound to assess growth (HCC) History of pre-eclampsia in prior , currently (HCC) History of gestational hypertension BMI 50.0-59.9, adult (HCC) 31 weeks gestation of (HCC) Encounter for screening ([facility]) BIOPHYSICAL PROFILE NST Routine 12/13/2024 10:18 AM CHAIRMAN CEO BMI 60.0-69.9, adult (HCC) History of pre-eclampsia in prior , currently (HCC) History of gestational hypertension Encounter for screening (HCC) 34 weeks gestation of (HCC) BIOPHYSICAL PROFILE NST Routine 12/06/2024 1:34 PM CHAIRMAN CEO BMI 60.0-69.9, adult (HCC) History of pre-eclampsia in prior , currently (HCC) History of gestational hypertension Encounter for screening (HCC) 34 weeks gestation of (HCC) BIOPHYSICAL PROFILE W NST Routine 11/29/2024 2:30 PM CHAIRMAN CEO Encounter for ultrasound to assess growth (HCC) History of pre-eclampsia in prior , currently (HCC) History of gestational hypertension BMI 50.0-59.9, adult (HCC) 31 weeks gestation of (HCC) Encounter for screening ([facility]) BIOPHYSICAL PROFILE WO NST Routine 11/22/2024 1:53 PM CHAIRMAN CEO BMI 60.0-69.9, adult (HCC) History of pre-eclampsia in prior , currently (HCC) History of gestational hypertension Encounter for screening (HCC) 34 weeks gestation of (HCC) BIOPHYSICAL PROFILE W NST Routine 11/15/2024 1:56 PM CHAIRMAN CEO Encounter for ultrasound to assess growth (HCC) History of pre-eclampsia in prior , currently (HCC) History of gestational hypertension BMI 50.0-59.9, adult (HCC) 31 weeks gestation of (HCC) Encounter for screening (HCC) BIOPHYSICAL PROFILE W NST Routine 11/08/2024 1:49 PM CHAIRMAN CEO Encounter for ultrasound to assess growth (HCC) History of pre-eclampsia in prior , currently (HCC) History of gestational hypertension BMI 50.0-59.9, adult (HCC) 31 weeks gestation of (HCC) Encounter for screening (HCC) SONOGRAM - COMPLETE Routine 10/11/2024 9 :47 AM CHAIRMAN CEO Encounter for ultrasound to assess growth (HCC) Encounter for follow-up ultrasound of anatomy (HCC) History of pre-eclampsia in prior , currently (HCC) History of gestational hypertension Obesity complicating peripregnancy, antepartum, second trimester (HCC) 28 weeks gestation of (HCC) from Last 3 Months Results * BIOPHYSICAL PROFILE W NST (12/20/2024 1:39 PM CHAIRMAN CEO) Only the most recent of4 resultswithin the time period is included. 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 Para 1 [id number] 1. live 2021. Gest. age 39 w [...] weekly testing until delivery Coding ====== Procedures [id number]: US Uterus Limited 18809: Biophysical Profile W NST [employer] PACS Anatomical Region Laterality Modality Other 12/20/2024 1:39 PM CHAIRMAN CEO Timmy Peña MD [facility] ORDERABLES * BIOPHYSICAL PROFILE WO NST (12/13/2024 10:18 AM CHAIRMAN CEO) Only the most recent of3 resultswithin the time period is included. Linked Results Indication ======== Class IV obesity History ====== OB History 4. Para 1 [id number] 1. live 2021. Gest. age 39 w [...] ======== Continue weekly testing Coding ====== Procedures [id number]: US Uterus Limited 00559: Biophysical Profile W NST [employer] PACS Anatomical Region Laterality Modality Other 12/13/2024 10:1 8 AM CHAIRMAN CEO Cash Templeton MD [facility] ORDERABLES * SONOGRAM - COMPLETE (10/11/2024 9:47 AM CHAIRMAN CEO) Linked Results Indication ======== Incomplete anatomy Obesity, Class III History ====== OB History 4. Para 1 [id number] 1. live 2021. Gest. age 39 w [...] 3 lb 2 oz EFW by Hadlock ([id number]-FL) overall normal range, but the AC is [...] appear normal: Heart / Thorax 3-vessel view. 2-yhgfet-lotuzot view. Aortic arch view. Abdomen Stomach. Kidneys. [...] due to maternal obesity Coding ====== Procedures [id number]: US Preg Uterus Follow Up [facility] [employer] PACS Anatomical Region Laterality Modality Other 10/11/2024 9:47 AM CHAIRMAN CEO Albino Redman MD [facility] ORDERABLES from Last 3 Months Care Teams General Assignment Reporter Relationship Specialty Start Date End Date Lorena Tucker APRN-CNP [address] [id number] PCP - General 11/24/21
--- OUTSIDE RECORDS SUMMARY | 2024-12-26 17:08 | XMS_ITS ---
Author Organization [facility] Address [facility] [address] Care Team Providers Care Life Care Planner Name Role Phone Girma KLEIN, [place] Primary Care Provider Un available Cristina Fernández Unavailable [phone] Hang Santiago Unavailable [phone] Social History Sex Assigned At : Social History Observation Description Sex Assigned At Unknown Encounters Encounter Location Date Provider Diagnosis [facility] [place] [address] [facility] [address] [address] 11/12/2024 Hang Santiago Plan Of Treatment No Information Progress Notes * CATA BURTOB:1994 (29 yo F)Acc No.[id number]:11/12/2024 Patient: BRENDA JOINER Provider: Karol Santiago LCPC :1995 A ge:29 Y S ex:Female Date:11/12/2024 [address] [facility] Pcp:[place] Rayo MD Data: * Chief Complaints: * Assessment: Plan: * Treatment: * Billing Information: * Visit Code: * Procedure Codes: * Electronic signature of Esha Santiago LCPC on 12/26/2024 at 05:08 PM DISPENSARY ATTENDANT Sign off status: Pending Signatures: No Ad Hoc Signature Added * Provider: Karol Santiago LCPC Date: 0 11/12/2024 Generated for Paul calderon/Mel/Pattiitting on: 0 12/26/2024 05:08 PM DISPENSARY ATTENDANT
--- OUTSIDE RECORDS SUMMARY | 2024-12-26 17:08 | XMS_ITS | Data Portability ---
Author Organization [place] [employer], Main Office Address [address] [place] [address] Assessment Encounter Date Assessment Date Assessment LastModified by Organization Details LastModified Time 02/21/2024 02/21/2024 12/25/2023: VIT D 24.2L HGB 11.5 Not available 02/21/2024 17:14:05 04/30/2024 04/30/2024 12/25/2023: VIT D 24.2L HGB 11.5 Not available 04/30/2024 14:59:38 07/01/2024 07/01/2024 12/25/2023: VIT D 24.2L HGB 11.5 06/01/2024: Dr Jet JON H/H 11.3/35.0 Not available 07/01/2024 17:24:10 Plan of Treatment Reminders Order Date Submit Date Provider Last Modified By Organization Details Last Modified Time Details Appointments Any 15 2024 03:30P Vanessa waller MD Not available Not available Not available Lab vitamin D, 25-hydrox y, total, serum 2023 024 [facility] (Lab), [address] [place], [address], 07/03/2024 14:31:51 lipid panel, serum 2023 024 [facility] (Lab), [address] [place], [address], 07/03/2024 14:31:51 CBC w/ auto diff 2023 024 [facility] (Lab), [address] [place], [address], 08/05/2024 15:52:19 TSH, serum or plasma 2023 024 [facility] (Lab), [address] [place], [address], 07/03/2024 14:31:51 CMP, serum or plasma 2023 024 [facility] (Lab), [address] [place], [address], 07/03/2024 14:31:51 vitamin B12 + folate, serum or blood 2023 024 [facility] (Lab), [address] [place], [address], 07/03/2024 14:31:51 vitamin D, 25-hydrox y, total, serum 2023 024 [facility] (Lab), [address] [place], [address], 05/01/2024 10:14:34 lipid panel, serum 2023 024 [facility] (Lab), [address] [place], [address], 04/30/2024 17:48:45 CBC w/ auto diff 2023 024 [facility] (Lab), [address] [place], [address], 04/30/2024 17:57:28 TSH, serum or plasma 2023 024 [facility] (Lab), [address] [place], [address], 04/30/2024 18:21:44 CMP, serum or plasma 2023 024 [facility] (Lab), [address] [place], [address], 04/30/2024 17:48:56 vitamin B12 + folate, serum or blood [address] (Lab), [address] [place], [address], 10/31/2024 08:53:36 vitamin D, 25-hydrox y, total, serum [address] (Lab), [address] [place], [address], 08/27/2024 09:47:09 lipid panel, serum 2023 024 [facility] (Lab), [address] [place], [address], 05/01/2024 10:14:34 CBC w/ auto diff [address] (Lab), [address] [place], [address], 08/27/2024 09:47:09 TSH, serum or plasma [address] (Lab), [address] [place], [address], 08/27/2024 09:47:09 CMP, serum or plasma 2023 024 [facility] (Lab), [address] [place], [address], 06/01/2024 16:58:30 vitamin B12 + folate, serum or blood 2023 024 [email or web address] [facility] (Lab), [address] [place], [address], 08/27/2024 09:47:09 lipid panel, serum 2023 024 [facility] (Lab), [address] [place], [address], 12/25/2023 17:57:20 CBC w/ auto diff 2023 024 [facility] (Lab), [address] [place], [address], 12/25/2023 14:17:10 TSH, serum or plasma 2023 024 [facility] (Lab), [address] [place], [address], 12/25/2023 18:21:39 CMP, serum or plasma 2023 024 [facility] (Lab), [address] [place], [address], 12/25/2023 17:57:30 vitamin D, 25-hydrox y, total, serum [address] (Lab), [address] [place], [address], 12/27/2023 11:31:24 vitamin B12 + folate, serum or blood [address] (Lab), [address] [place], [address], 12/27/2023 11:31:25 Referral gastroent erologist referral 2023 024 [email or web address] Katt Chan MD, [address], [facility] [address], [address], 09/16/2024 09:00:46 obstetric jony and gynecolog ist referral 2023 024 [email or web address] Trina Chaudhary MD, [address], [address], [place], [address], 07/15/2024 09:22:27 psychiatr ist referral 2023 024 [email or web address] Wing Miller MD, [address], [address], [place], [address], 07/15/2024 09:22:29 Procedures None recorded. Surgeries None recorded. Imaging None recorded. Medication Orders albuterol sulfate HFA 90 mcg/actua tion aerosol inhaler 2023 024 [facility] #[id number], [address], [place], [id number], 07/01/2024 18:50:03 Airsupra 90 mcg-80 mcg/actua tion HFA aerosol inhaler 2023 024 [email or web address] [id number], [address], [place], [id number], 07/01/2024 17:25:06 Zepbound 2.5 mg/0.5 mL subcutane ous pen injector 2023 024 [email or web address] [facility] #[id number], [address], [place], [id number], 04/30/2024 14:54:06 omeprazol e 20 mg capsule,d elayed release 2023 024 [email or web address] [id number], [address], [place], [id number], 07/01/2024 16:55:26 Patient TargetsNo targets recorded. Patient InstructionsNo instructions recorded. Reason for Referral [employer] [employer] [facility] Referral for Gynecologic examination Referring Physician: Modesta Rayo, Internal Medicine, Encounter Date: 12/20/2023 [employer] Referral for Irritable bowel syndrome Referring Physician: Modesta Rayo, Internal Medicine, Encounter Date: 12/20/2023 Psychiatrist Referral for Mi xed anxiety and depressive disorder Referring Physician: Modesta Rayo Internal Medicine, Encounter Date: 12/20/2023 Results Created Date Observation Date Name Description Value Unit Range Abnormal Flag Note LastModifiedBy Organization Detail LastModifiedTime 12/25/19 24 12/25/2023 CBC/C OMPLE TE BLD COUNT W/DIF F white blood cells 5.5 x10'3 /uL 4.2-10 .8 Not Available [facility] (Lab) [address] [place], [address], 12/25/2023 14:17:10 12/25/19 24 12/25/2023 CBC/C OMPLE TE BLD COUNT W/DIF F red blood cells 4.41 x10'6 /uL 3.80-5 .20 Not Available [facility] (Lab) [address] [place], [address], 12/25/2023 14:17:10 12/25/19 24 12/25/2023 CBC/C OMPLE TE BLD COUNT W/DIF F hemoglobin 11.5 g/dL 12.0-1 5.6 low Not Available [facility] (Lab) [address] [place], [address], 12/25/2023 14:17:10 12/25/19 24 12/25/2023 CBC/C OMPLE TE BLD COUNT W/DIF F hematocrit 36.4 % 35.7-4 5.7 Not Available [facility] (Lab) [address] [place], [address], 12/25/2023 14:17:10 12/25/19 24 12/25/2023 CBC/C OMPLE TE BLD COUNT W/DIF F mean red cell volume 82.5 fL 82.0-9 9.0 Not Available [facility] (Lab) [address] [place], [address], 12/25/2023 14:17:10 12/25/19 24 12/25/2023 CBC/C OMPLE TE BLD COUNT W/DIF F mean red cell hemoglobin 26.1 pg 27.0-3 [address] [facility] (Lab) [address] [place], [address], 12/25/2023 14:17:10 12/25/19 24 12/25/2023 CBC/C OMPLE TE BLD COUNT W/DIF F mean RBC HGB concentratio n 31.6 g/dL 31.0-3 6.0 Not Available [facility] (Lab) [address] [place], [address], 12/25/2023 14:17:10 12/25/19 24 12/25/2023 CBC/C OMPLE TE BLD COUNT W/DIF F red cell distribution width 14.2 % 11.8-1 5.5 Not Available [facility] (Lab) [address] [place], [address], 12/25/2023 14:17:10 12/25/19 24 12/25/2023 CBC/C OMPLE TE BLD COUNT W/DIF F platelets 279 x10'3 /uL 150-40 0 Not Available [facility] (Lab) [address] [place], [address], 12/25/2023 14:17:10 12/25/19 24 12/25/2023 CBC/C OMPLE TE BLD COUNT W/DIF F mean platelet volume 10.3 fL 9.0-12 .4 Not Available [facility] (Lab) [address] [place], [address], 12/25/2023 14:17:10 12/25/19 24 12/25/2023 CBC/C OMPLE TE BLD COUNT W/DIF F neutrophils 61.2 % 39.0-7 2.0 Not Available [facility] (Lab) [address] [place], [address], 12/25/2023 14:17:10 12/25/19 24 12/25/2023 CBC/C OMPLE TE BLD COUNT W/DIF F lymphocytes 28.9 % 16.0-[address] [facility] (Lab) [address] [place], [address], 12/25/2023 14:17:10 12/25/19 24 12/25/2023 CBC/C OMPLE TE BLD COUNT W/DIF F monocytes 8.4 % 5.0-12 .0 Not Available [facility] (Lab) [address] [place], [address], 12/25/2023 14:17:10 12/25/19 24 12/25/2023 CBC/C OMPLE TE BLD COUNT W/DIF F eosinophils 0.9 % 1.0-7. 0 low Not Available [facility] (Lab) [address] [place], [address], 12/25/2023 14:17:10 12/25/19 24 12/25/2023 CBC/C OMPLE TE BLD COUNT W/DIF F basophils 0.4 % 0.0-2. 0 Not Available [facility] (Lab) [address] [place], [address], 12/25/2023 14:17:10 12/25/19 24 12/25/2023 CBC/C OMPLE TE BLD COUNT W/DIF F immature granulocytes 0.2 % 0.00-0 .50 Not Available [facility] (Lab) [address] [place], [address], 12/25/2023 14:17:10 12/25/19 24 12/25/2023 CBC/C OMPLE TE BLD COUNT W/DIF F neutrophils, absolute count 3.34 x10'3 /uL 1.5-8. 0 Not Available [facility] (Lab) [address] [place], [address], 12/25/2023 14:17:10 12/25/19 24 12/25/2023 CBC/C OMPLE TE BLD COUNT W/DIF F lymphocytes, absolute count 1.58 x10'3 /uL 1.07-3 .43 Not Available [facility] (Lab) [address] [place], [address], 12/25/2023 14:17:10 12/25/19 24 12/25/2023 CBC/C OMPLE TE BLD COUNT W/DIF F monocytes, absolute count 0.46 x10'3 /uL 0.29-0 .99 Not Available [facility] (Lab) [address] [place], [address], 12/25/2023 14:17:10 12/25/19 24 12/25/2023 CBC/C OMPLE TE BLD COUNT W/DIF F eosinophils, absolute count 0.05 x10'3 /uL 0.02-0 .53 Not Available [facility] (Lab) [address] [place], [address], 12/25/2023 14:17:10 12/25/19 24 12/25/2023 CBC/C OMPLE TE BLD COUNT W/DIF F basophils, absolute count 0.02 x10'3 /uL 0.01-0 .08 Not Available [facility] (Lab) [address] [place], [address], 12/25/2023 14:17:10 12/25/19 24 12/25/2023 CBC/C OMPLE TE BLD COUNT W/DIF F immature granulocytes ,absolute 0.01 x10'3 /uL 0.00-0 .05 Not Available [facility] (Lab) [address] [place], [address], 12/25/2023 14:17:10 12/25/19 24 12/25/2023 CBC/C OMPLE TE BLD COUNT W/DIF F nucleated red blood cells 0.0 % -0 Not Available [facility] (Lab) [address] [place], [address], 12/25/2023 14:17:10 12/25/19 24 12/25/2023 CBC/C OMPLE TE BLD COUNT W/DIF F NRBC# 0.00 x10'3 /uL Not Available [facility] (Lab) [address] [place], [address], 12/25/2023 14:17:10 12/25/19 24 12/25/2023 LIPID PANEL cholesterol 155 mg/dL 140-19 9 NIH PAUL NSUS RECOM MENDA TION FOR DHEERAJ STERO L: ADULT CHILD LOW RISK: <200 <170 BORDE RLINE : <200- 239 ----- HIGH RISK: >240 >200 Not Available [facility] (Lab) [address] [place], [address], 12/25/2023 17:57:19 12/25/19 24 12/25/2023 LIPID PANEL triglyceride s 73 mg/dL 0-150 NIH PAUL NSUS REPOR T RECOM MENDA TION FOR TRIGL YCERI LILY: ADULT CHILD LOW RISK: <150 ----- BODER LINE: 150-1 99 ----- HIGH RISK: >200 ----- Not Available [facility] (Lab) [address] [place], [address], 12/25/2023 17:57:19 12/25/19 24 12/25/2023 LIPID PANEL HDL cholesterol 48 mg/dL 40- Not Available [facility] (Lab) [address] [place], [address], 12/25/2023 17:57:19 12/25/19 24 12/25/2023 LIPID PANEL LDL cholesterol, calculated 92 mg/dL 0-130 NIH PAUL NSUS REPOR T RECOM MENDA TIONS FOR LDL: ADULT CHILD LOW RISK <130 <110 (OPTI MAL LDL) <100 ----- BORDE RLINE : 130-1 59 ----- HIGH RISK: >160 >130 A TRIGL YCERI DE RESUL T >400 INVAL IDATE S THE CALCU LATIO N FOR LDL FRACT IONAT ION - THE LDL RESUL T WILL NOT BE REPOR KYLAH. Not Available [facility] (Lab) [address] [place], [address], 12/25/2023 17:57:19 12/25/19 24 12/25/2023 COMPR EHENS DARWIN METAB OLIC PANEL sodium 137 mmol/ L 137-14 5 Not Available [facility] (Lab) [address] [place], [address], 12/25/2023 17:57:30 12/25/19 24 12/25/2023 COMPR EHENS DARWIN METAB OLIC PANEL potassium 4.0 mmol/ L 3.5-5. 1 Not Available [facility] (Lab) [address] [place], [address], 12/25/2023 17:57:30 12/25/19 24 12/25/2023 COMPR EHENS DARWIN METAB OLIC PANEL chloride 104 mmol/ L 98-107 Not Available [facility] (Lab) [address] [place], [address], 12/25/2023 17:57:30 12/25/19 24 12/25/2023 COMPR EHENS DARWIN METAB OLIC PANEL carbon dioxide 27 mmol/ L 22-30 Not Available [facility] (Lab) [address] [place], [address], 12/25/2023 17:57:30 12/25/19 24 12/25/2023 COMPR EHENS DARWIN METAB OLIC PANEL anion gap 10.0 mmol/ L 14-22 low Not Available [facility] (Lab) [address] [place], [address], 12/25/2023 17:57:30 12/25/19 24 12/25/2023 COMPR EHENS DARWIN METAB OLIC PANEL glucose 78 mg/dL 70-99 Not Available [facility] (Lab) [address] [place], [address], 12/25/2023 17:57:30 12/25/19 24 12/25/2023 COMPR EHENS DARWIN METAB OLIC PANEL BUN 14 mg/dL 8-19 Not Available [facility] (Lab) [address] [place], [address], 12/25/2023 17:57:30 12/25/19 24 12/25/2023 COMPR EHENS DARWIN METAB OLIC PANEL creatinine 0.78 mg/dL 0.66-1 .25 Not Available [facility] (Lab) [address] [place], [address], 12/25/2023 17:57:30 12/25/19 24 12/25/2023 COMPR EHENS DARWIN METAB OLIC PANEL GFR >60 Refer ence Range : [place] ge GFR Healt hy Adult : >60 mL/mi n/1.7 3 m2 Chron ic Kidne y Disea se: 15-60 mL/mi n/1.7 3 m2 Kidne y Failu re: <15/m L/min /1.73 m2 www.n iddk. nih.g ov The MDRD study equat ion has not been valid ated in child giuliana <18 years of age; pregn ant women ; the elder ly >85 years of age; or in some racia l or ethni c subgr oups, such as Hispa nics. Outsi de the valid ated yvonne eters , estim ated GFR is less accur ate, requi ring clini lukas judgm ent on a case- by-ca se basis . Clini lukas inter preta tion for other races and ages must be made by the clini audi. The MDRD study equat ion has not been valid ated for the evalu ation of serum creat inine relat ed to nutri mandeep l statu s or medic ation usage . For perso ns <18 years of age, a pedia tric GFR calcu lator is avail able on the F websi te: https :[email or web address] w.evette brambilay.o rg/pr ofess ional s/kdo qi/gf r_cal culat or Not Available [facility] (Lab) [address] [place], [address], 12/25/2023 17:57:30 12/25/19 24 12/25/2023 COMPR EHENS DARWIN METAB OLIC PANEL alkaline phosphatase 72 U/L 38-126 Not Available [facility] (Lab) [address] [place], [address], 12/25/2023 17:57:30 12/25/19 24 12/25/2023 COMPR EHENS DARWIN METAB OLIC PANEL alanine aminotransfe rase 14 U/L 0-35 Not Available [facility] (Lab) [address] [place], [address], 12/25/2023 17:57:30 12/25/19 24 12/25/2023 COMPR EHENS DARWIN METAB OLIC PANEL aspartate aminotransfe rase 21 U/L 15-37 Not Available [facility] (Lab) [address] [place], [address], 12/25/2023 17:57:30 12/25/19 24 12/25/2023 COMPR EHENS DARWIN METAB OLIC PANEL bilirubin, total 0.50 mg/dL 0.20-1 .30 Not Available [facility] (Lab) [address] [place], [address], 12/25/2023 17:57:30 12/25/19 24 12/25/2023 COMPR EHENS DARWIN METAB OLIC PANEL calcium 8.8 mg/dL 8.4-10 .2 Not Available [facility] (Lab) [address] [place], [address], 12/25/2023 17:57:30 12/25/19 24 12/25/2023 COMPR EHENS DARWIN METAB OLIC PANEL total protein 6.8 g/dL 6.3-8. 2 Not Available [facility] (Lab) [address] [place], [address], 12/25/2023 17:57:30 12/25/19 24 12/25/2023 COMPR EHENS DARWIN METAB OLIC PANEL albumin 3.8 g/dL 3.4-5. 0 Not Available [facility] (Lab) [address] [place], [address], 12/25/2023 17:57:30 12/25/19 24 12/25/2023 COMPR EHENS DARWIN METAB OLIC PANEL globulin 3.0 g/dL 2.6-4. 2 Not Available [facility] (Lab) [address] [place], [address], 12/25/2023 17:57:30 12/25/19 24 12/25/2023 COMPR EHENS DARWIN METAB OLIC PANEL A/G ratio 1.3 ratio 1.0-2. 0 Not Available [facility] (Lab) [address] [place], [address], 12/25/2023 17:57:30 12/25/19 24 12/25/2023 TSH W/REF TARYN FT4 TSH with reflex free T4 1.130 uIU/m L 0.465- 4.680 Not Available [facility] (Lab) [address] [place], [address], 12/25/2023 18:21:39 12/25/19 24 12/25/2023 VITAM IN D 25-HY DROXY [id number] 24.4 NG/mL 30-100 low Vitam in D Statu s: Defic ient: <20 ng/mL Insuf ficie nt: 20-29 ng/mL Suffi cient : 30-10 0 ng/mL Not Available [facility] (Lab) [address] [place], [address], 12/25/2023 19:17:46 12/25/19 24 12/25/2023 VITAM IN B12 (RACHAEL NATHANIEL ) vb12 381 pg/mL 239-93 1 Not Available [facility] (Lab) [address] [place], [address], 12/25/2023 20:09:46 12/25/19 24 12/25/2023 FOLAT E, SERUM /PLAS MA folate 8.17 NG/mL 2.76-2 0.0 Not Available [facility] (Lab) [address] [place], [address], 12/25/2023 20:09:52 04/30/20 24 04/30/2024 LIPID PANEL cholesterol 171 mg/dL 140-19 9 NIH PAUL NSUS RECOM MENDA TION FOR DHEERAJ STERO L: ADULT CHILD LOW RISK: <200 <170 BORDE RLINE : <200- 239 ----- HIGH RISK: >240 >200 Not Available [facility] (Lab) [address] [place], [address], 04/30/2024 17:48:45 04/30/20 24 04/30/2024 LIPID PANEL triglyceride s 89 mg/dL 0-150 NIH PAUL NSUS REPOR T RECOM MENDA TION FOR TRIGL YCERI LILY: ADULT CHILD LOW RISK: <150 ----- BODER LINE: 150-1 99 ----- HIGH RISK: >200 ----- Not Available [facility] (Lab) [address] [place], [address], 04/30/2024 17:48:45 04/30/20 24 04/30/2024 LIPID PANEL HDL cholesterol 64 mg/dL 40- Not Available [facility] (Lab) [address] [place], [address], 04/30/2024 17:48:45 04/30/2004/30/2024 LIPID PANEL LDL cholesterol, calculated 89 mg/dL 0-130 NIH PAUL NSUS REPOR T RECOM MENDA TIONS FOR LDL: ADULT CHILD LOW RISK <130 <110 (OPTI MAL LDL) <100 ----- BORDE RLINE : 130-1 59 ----- HIGH RISK: >160 >130 A TRIGL YCERI DE RESUL T >400 INVAL IDATE S THE CALCU LATIO N FOR LDL FRACT IONAT ION - THE LDL RESUL T WILL NOT BE REPOR KYLAH. Not Available [facility] (Lab) [address] [place], [address], 04/30/2024 17:48:45 04/30/20 24 04/30/2024 COMPR EHENS DARWIN METAB OLIC PANEL sodium 135 mmol/ L 137-[address] [facility] (Lab) [address] [place], [address], 04/30/2024 17:48:56 04/30/20 24 04/30/2024 COMPR EHENS DARWIN METAB OLIC PANEL potassium 4.3 mmol/ L 3.5-5. 1 Not Available [facility] (Lab) [address] [place], [address], 04/30/2024 17:48:56 04/30/20 24 04/30/2024 COMPR EHENS DARWIN METAB OLIC PANEL chloride 106 mmol/ L 98-107 Not Available [facility] (Lab) [address] [place], [address], 04/30/2024 17:48:56 04/30/20 24 04/30/2024 COMPR EHENS DARWIN METAB OLIC PANEL carbon dioxide 24 mmol/ L 22-30 Not Available [facility] (Lab) [address] [place], [address], 04/30/2024 17:48:56 04/30/20 24 04/30/2024 COMPR EHENS DARWIN METAB OLIC PANEL anion gap 9.3 mmol/ L 14-22 low Not Available [facility] (Lab) [address] [place], [address], 04/30/2024 17:48:56 04/30/20 24 04/30/2024 COMPR EHENS DARWIN METAB OLIC PANEL glucose 92 mg/dL 70-99 Not Available [facility] (Lab) [address] [place], [address], 04/30/2024 17:48:56 04/30/20 24 04/30/2024 COMPR EHENS DARWIN METAB OLIC PANEL BUN 13 mg/dL 8-19 Not Available [facility] (Lab) [address] [place], [address], 04/30/2024 17:48:56 04/30/20 24 04/30/2024 COMPR EHENS DARWIN METAB OLIC PANEL creatinine 0.79 mg/dL 0.66-1 .25 Not Available [facility] (Lab) [address] [place], [address], 04/30/2024 17:48:56 04/30/20 24 04/30/2024 COMPR EHENS DARWIN METAB OLIC PANEL GFR >60 Refer ence Range : [place] GFR Healt hy Adult : >60 mL/mi n/1.7 3 m2 Chron ic Kidne y Disea se: 15-60 mL/mi n/1.7 3 m2 Kidne y Failu re: <15/m L/min /1.73 m2 www.n iddk. nih.g ov The MDRD study equat ion has not been valid ated in child giuliana <18 years of age; pregn ant women ; the elder ly >85 years of age; or in some racia l or ethni c subgr oups, such as Hispa nics. Outsi de the valid ated yvonne eters , estim ated GFR is less accur ate, requi ring clini lukas judgm ent on a case- by-ca se basis . Clini lukas inter preta tion for other races and ages must be made by the clini audi. The MDRD study equat ion has not been valid ated for the evalu ation of serum creat inine relat ed to nutri mandeep l statu s or medic ation usage . For perso ns <18 years of age, a pedia tric GFR calcu lator is avail able on the [facility] websi te: https :[email or web address] w.evette [email or web address] rg/pr ofess ional s/kdo qi/gf r_cal culat or Not Available [facility] (Lab) [address] [place], [address], 04/30/2024 17:48:56 04/30/20 24 04/30/2024 COMPR EHENS DARWIN METAB OLIC PANEL alkaline phosphatase 80 U/L 38-126 Not Available [facility] (Lab) [address] [place], [address], 04/30/2024 17:48:56 04/30/20 24 04/30/2024 COMPR EHENS DARWIN METAB OLIC PANEL alanine aminotransfe rase 15 U/L 0-35 Not Available [facility] (Lab) [address] [place], [address], 04/30/2024 17:48:56 04/30/20 24 04/30/2024 COMPR EHENS DARWIN METAB OLIC PANEL aspartate aminotransfe rase 21 U/L 15-37 Not Available [facility] (Lab) [address] [place], [address], 04/30/2024 17:48:56 04/30/20 24 04/30/2024 COMPR EHENS DARWIN METAB OLIC PANEL bilirubin, total 0.50 mg/dL 0.20-1 .30 Not Available [facility] (Lab) [address] [place], [address], 04/30/2024 17:48:56 04/30/20 24 04/30/2024 COMPR EHENS DARWIN METAB OLIC PANEL calcium 8.7 mg/dL 8.4-10 .2 Not Available [facility] (Lab) [address] [place], [address], 04/30/2024 17:48:56 04/30/20 24 04/30/2024 COMPR EHENS DARWIN METAB OLIC PANEL total protein 7.2 g/dL 6.3-8. 2 Not Available [facility] (Lab) [address] [place], [address], 04/30/2024 17:48:56 04/30/20 24 04/30/2024 COMPR EHENS DARWIN METAB OLIC PANEL albumin 4.2 g/dL 3.4-5. 0 Not Available [facility] (Lab) [address] [place], [address], 04/30/2024 17:48:56 04/30/20 24 04/30/2024 COMPR EHENS DARWIN METAB OLIC PANEL globulin 3.0 g/dL 2.6-4. 2 Not Available [facility] (Lab) [address] [place], [address], 04/30/2024 17:48:56 04/30/20 24 04/30/2024 COMPR EHENS DARWIN METAB OLIC PANEL A/G ratio 1.4 ratio 1.0-2. 0 Not Available [facility] (Lab) [address] [place], [address], 04/30/2024 17:48:56 04/30/20 24 04/30/2024 CBC/C OMPLE TE BLD COUNT W/DIF F white blood cells 7.0 x10'3 /uL 4.2-10 .8 Not Available [facility] (Lab) [address] [place], [address], 04/30/2024 17:57:28 04/30/20 24 04/30/2024 CBC/C OMPLE TE BLD COUNT W/DIF F red blood cells 4.36 x10'6 /uL 3.80-[address] [facility] (Lab) [address] [place], [address], 04/30/2024 17:57:28 04/30/20 24 04/30/2024 CBC/C OMPLE TE BLD COUNT W/DIF F hemoglobin 11.8 g/dL 12.0-1 5[address] [facility] (Lab) [address] [place], [address], 04/30/2024 17:57:28 04/30/2004/30/2024 CBC/C OMPLE TE BLD COUNT W/DIF F hematocrit 37.0 % 35.7-4 5.7 Not Available [facility] (Lab) [address] [place], [address], 04/30/2024 17:57:28 04/30/20 24 04/30/2024 CBC/C OMPLE TE BLD COUNT W/DIF F mean red cell volume 84.9 fL 82.0-[address] [facility] (Lab) [address] [place], [address], 04/30/2024 17:57:28 04/30/20 24 04/30/2024 CBC/C OMPLE TE BLD COUNT W/DIF F mean red cell hemoglobin 27.1 pg 27.0-3 3.0 Not Available [facility] (Lab) [address] [place], [address], 04/30/2024 17:57:28 04/30/2004/30/2024 CBC/C OMPLE TE BLD COUNT W/DIF F mean RBC HGB concentratio n 31.9 g/dL 31.0-3 6.0 Not Available [facility] (Lab) [address] [place], [address], 04/30/2024 17:57:28 04/30/20 24 04/30/2024 CBC/C OMPLE TE BLD COUNT W/DIF F red cell distribution width 14.6 % 11.8-[address] [facility] (Lab) [address] [place], [address], 04/30/2024 17:57:28 04/30/20 24 04/30/2024 CBC/C OMPLE TE BLD COUNT W/DIF F platelets 316 x10'3 /uL 150-40 0 Not Available [facility] (Lab) [address] [place], [address], 04/30/2024 17:57:28 04/30/20 24 04/30/2024 CBC/C OMPLE TE BLD COUNT W/DIF F mean platelet volume 9.9 fL 9.0-12 .4 Not Available [facility] (Lab) [address] [place], [address], 04/30/2024 17:57:28 04/30/20 24 04/30/2024 CBC/C OMPLE TE BLD COUNT W/DIF F neutrophils 64.4 % 39.0-7 2.0 Not Available [facility] (Lab) [address] [place], [address], 04/30/2024 17:57:28 04/30/20 24 04/30/2024 CBC/C OMPLE TE BLD COUNT W/DIF F lymphocytes 27.4 % 16.0-4 7.0 Not Available [facility] (Lab) [address] [place], [address], 04/30/2024 17:57:28 04/30/20 24 04/30/2024 CBC/C OMPLE TE BLD COUNT W/DIF F monocytes 6.8 % 5.0-12 .0 Not Available [facility] (Lab) [address] [place], [address], 04/30/2024 17:57:28 04/30/20 24 04/30/2024 CBC/C OMPLE TE BLD COUNT W/DIF F eosinophils 0.6 % 1.0-7. [address] [facility] (Lab) [address] [place], [address], 04/30/2024 17:57:28 04/30/20 24 04/30/2024 CBC/C OMPLE TE BLD COUNT W/DIF F basophils 0.4 % 0.0-2. 0 Not Available [facility] (Lab) [address] [place], [address], 04/30/2024 17:57:28 04/30/20 24 04/30/2024 CBC/C OMPLE TE BLD COUNT W/DIF F immature granulocytes 0.4 % 0.00-[address] [facility] (Lab) [address] [place], [address], 04/30/2024 17:57:28 04/30/20 24 04/30/2024 CBC/C OMPLE TE BLD COUNT W/DIF F neutrophils, absolute count 4.52 x10'3 /uL 1.5-8. 0 Not Available [facility] (Lab) [address] [place], [address], 04/30/2024 17:57:28 04/30/20 24 04/30/2024 CBC/C OMPLE TE BLD COUNT W/DIF F lymphocytes, absolute count 1.92 x10'3 /uL 1.07-3 .43 Not Available [facility] (Lab) [address] [place], [address], 04/30/2024 17:57:28 04/30/20 24 04/30/2024 CBC/C OMPLE TE BLD COUNT W/DIF F monocytes, absolute count 0.48 x10'3 /uL 0.29-0 .99 Not Available [facility] (Lab) [address] [place], [address], 04/30/2024 17:57:28 04/30/20 24 04/30/2024 CBC/C OMPLE TE BLD COUNT W/DIF F eosinophils, absolute count 0.04 x10'3 /uL 0.02-0 .53 Not Available [facility] (Lab) [address] [place], [address], 04/30/2024 17:57:28 04/30/20 24 04/30/2024 CBC/C OMPLE TE BLD COUNT W/DIF F basophils, absolute count 0.03 x10'3 /uL 0.01-0 .08 Not Available [facility] (Lab) [address] [place], [address], 04/30/2024 17:57:28 04/30/20 24 04/30/2024 CBC/C OMPLE TE BLD COUNT W/DIF F immature granulocytes ,absolute 0.03 x10'3 /uL 0.00-0 .05 Not Available [facility] (Lab) [address] [place], [address], 04/30/2024 17:57:28 04/30/20 24 04/30/2024 CBC/C OMPLE TE BLD COUNT W/DIF F nucleated red blood cells 0.0 % -0 Not Available [facility] (Lab) [address] [place], [address], 04/30/2024 17:57:28 04/30/20 24 04/30/2024 CBC/C OMPLE TE BLD COUNT W/DIF F NRBC# 0.00 x10'3 /uL Not Available [facility] (Lab) [address] [place], [address], 04/30/2024 17:57:28 04/30/20 24 04/30/2024 VITAM IN D 25-HY DROXY vd25oh 31.4 NG/mL 30-100 Vitam in D Statu s: Defic ient: <20 ng/mL Insuf ficie nt: 20-29 ng/mL Suffi cient : 30-10 0 ng/mL Not Available [facility] (Lab) [address] [place], [address], 04/30/2024 18:09:53 04/30/20 24 04/30/2024 TSH W/REF TARYN FT4 TSH with reflex free T4 0.765 uIU/m L 0.465- 4.680 Not Available [facility] (Lab) [address] [place], [address], 04/30/2024 18:21:43 04/30/20 24 04/30/2024 VITAM IN B12 (RACHAEL NATHANIEL ) vb12 638 pg/mL 239-93 1 Not Available [facility] (Lab) [address] [place], [address], 04/30/2024 18:56:35 04/30/20 24 04/30/2024 FOLAT E, SERUM /PLAS MA folate >20.0 NG/mL 2.76-2 0.0 Not Available [facility] (Lab) [address] [place], [address], 04/30/2024 18:56:40 Result Notes None recorded. Problems Name Problem SNOMED Code Status Onset Date Resolution Date Notes Provider Name and Address Organization Details Recorded Time Anti-nucle ar factor detected 186347648 Active 2021 Not Available [facility] 3 05:05:16 Cobalamin deficiency 397524029 Active 2022 Not Available [facility] 3 05:05:16 Generalize d anxiety disorder 79478026 Active 2021 Not Available [facility] 3 05:05:16 Anemia 412299722 Active 2021 Not Available [facility] 3 05:05:16 Vitamin D deficiency 64357211 Active 2022 Not Available [facility] 3 05:05:16 59956283 Completed 202003/01/2022 Not Available [facility] 3 02:29:32 Mixed anxiety and depressive disorder 950562138 Active 2022 Not Available [facility] 3 05:05:16 Iron deficiency 11873794 Active 2022 Not Available [facility] 3 05:05:16 Intermitte nt palpitatio ns 923823809 Active 2022 Not Available [facility] 3 05:05:16 Irritable bowel syndrome 29085130 Active 2022 Not Available [facility] 3 05:05:16 Obesity 621774440 Active 2022 Not Available [facility] 3 05:05:16 Fatigue 47616533 Active 2022 Not Available [facility] 3 05:05:16 Right upper quadrant pain 127308893 Active 2022 Not Available [facility] 3 05:05:16 Epigastric pain 39467231 Active 2022 Not Available [facility] 3 05:05:16 Lymphadeno dashawn 85731216 Active 2022 Not Available [facility] 3 05:05:16 Cough 59939318 Active 2022 Not Available [facility] 3 05:05:16 Altered bowel function 71433424 Active 2022 Not Available [facility] 3 05:05:16 Viral syndrome 869220188 Active 2022 Not Available [facility] 3 05:05:16 Acid reflux 870180893 Active 2022 Not Available [facility] 3 05:05:16 Nausea 890367318 Active 2022 Not Available [facility] 3 05:05:16 Iron deficiency anemia 59287723 Active 2023 Modesta soto MD [address] [place] [address], [place] [address], [place], [address] , [facility] 4 17:43:39 Serum vitamin B12 below reference range 335729806 Active 2023 Modesta soto MD [address] [facility], [place], [address] , [facility] [employer] [facility] 4 17:44:32 Hyperlipid emia 71620100 Active 2023 Modesta soto MD [address], [place], [address] , [facility] [employer] [facility] 4 17:44:39 Gastroesop hageal reflux disease without esophagiti s 467676432 Active 2023 Modesta soto MD [address], [place], [address] , [facility] [employer] [facility] 4 17:44:56 Gastroesop hageal reflux disease 411938949 Active 2023 Ofelia Darden [facility], [facility] [employer] [facility] 4 12:00:46 Asthma 129876687 Active 2023 Modesta soto MD [address] [facility], [place] [address], [place], [address] , [facility] [employer] [facility] 4 17:51:18 Problem Notes None recorded. Procedures Surgical History Date Name Laterality Status Provider Name and Address Organization Details Recorded Time Dilation and curettage completed Not Available [facility] 12/21/2022 02:27:10 other completed Not Available [facility] 10/2022 02:27:10 Imaging Results None recorded. Procedure Notes None recorded. Medical Equipment None Reported. Allergies No known drug allergies Medications Name Sig Start Date Stop Date Status Note LastModified by Organization Details LastModified Time amoxicillin 500 mg capsule TAKE 1 CAPSULE BY MOUTH THREE TIMES DAILY 07/01 completed Not Available Not Available Not Available methocarbam ol 500 mg tablet TAKE 1 TO 2 TABLETS BY MOUTH AT BEDTIME NEEDED 07/21 completed Not Available Not Available Not Available Pain Reliever (acetaminop hen) 325 mg tablet 02/13 completed Not Available Not Available Not Available Iron (ferrous sulfate) 325 mg (65 mg iron) tablet Take 1 tablet every day by oral route. 07/01 completed Not Available Not Available Not Available azithromyci n 250 mg tablet TAKE 2 TABLETS (500 MG) BY ORAL ROUTE ONCE DAILY FOR 1 DAY THEN 1 TABLET (250 MG) BY ORAL ROUTE ONCE DAILY FOR 4 DAYS 07/21 completed Not Available Not Available Not Available benzonatate 200 mg capsule Take 1 capsule 3 times a day by oral route as needed. active Not Available Not Available No t Available clarithromy juana 500 mg tablet TAKE 1 TABLET BY MOUTH TWICE DAILY 12/20 completed Not Available Not Available Not Available hydrocodone 5 mg-acetamin ophen 325 mg tablet TAKE 1 TABLET BY MOUTH EVERY 6 HOURS NEEDED FOR PAIN 12/02 completed Not Available Not Available Not Available Tubersol 5 tub. unit/0.1 mL intradermal injection solution Inject x1 02/13 completed Not Available Not Available Not Available peg-electro lyte solution 420 gram oral solution MIX AND DRINK 1/2 AT 5PM 11/14 AND OTHER 1/2 AT 5AM 11/15 12/20 completed Not Available Not Available Not Available omeprazole 40 mg capsule,del ayed release Take 1 capsule every day by oral route in the morning. 12/20 completed Not Available Not Available Not Available amoxicillin 500 mg tablet TAKE 1 TABLET BY MOUTH THREE TIMES DAILY UNTIL ALL TAKEN 12/02 completed Not Available Not Available Not Available pantoprazol e 20 mg tablet,dianna yed release Take by oral route for 30 days. 02/13 completed Not Available Not Available Not Available alprazolam 0.5 mg tablet Take 1 PO 30 min prior to flight, max dose 2 pills per day; no alcohol, driving, or mixing with other sedating meds 06/14 completed Not Available Not Available Not Available cyanocobala min (vit B-12) 500 mcg tablet Take 1 tablet by oral route. 02/13 completed Not Available Not Available Not Available dicyclomine 20 mg tablet Take 1 tablet 4 times a day by oral route as needed. active Not Available Not Available No t Available progesteron e micronized 200 mg capsule TAKE 1 CAPSULE BY MOUTH EVERY DAY AT BEDTIME active Not Available Not Available No t Available sertraline 25 mg tablet TAKE 1 TABLET BY MOUTH EVERY DAY 07/01 completed Not Available Not Available Not Available omeprazole 20 mg capsule,del ayed release Take 1 capsule every day by oral route as needed for 90 days. 07/01 completed Not Available Not Available Not Available bisacodyl 5 mg tablet,dianna yed release TAKE ALL TABLETS AT 8AM ON 09/05 completed Not Available Not Available Not Available ergocalcife rol (vitamin D2) 1,250 mcg (50,000 unit) capsule TAKE 1 CAPSULE BY MOUTH EVERY WEEK 12/20 completed Not Available Not Available Not Available ibuprofen 600 mg tablet TAKE 1 TABLET BY MOUTH EVERY 6 HOURS FOR 10 DAYS NEEDED FOR CRAMPING 06/14 completed Not Available Not Available Not Available methylpredn isolone 4 mg tablets in a dose pack FOLLOW PACKAGE DIRECTION S 02/13 completed Not Available Not Available Not Available albuterol sulfate HFA 90 mcg/actuati on aerosol inhaler INHALE 2 PUFFS BY MOUTH EVERY 4 HOURS NEEDED 2023 active Not Available Not Available Not Avai lable sertraline 50 mg tablet TAKE 1 TABLET BY MOUTH DAILY 07/01 completed Not Available Not Available Not Available amoxicillin 875 mg-potassiu m clavulanate 125 mg tablet TAKE 1 TABLET BY MOUTH TWICE DAILY FOR 7 DAYS 12/20 completed Not Available Not Available Not Available Vitamin D3 25 mcg (1,000 unit) capsule Take 1 capsule every day by oral route. 03/26 completed Not Available Not Available Not Available bupropion HCl XL 150 mg 24 hr tablet, extended release TAKE 1 TABLET BY MOUTH DAILY IN THE MORNING 07/01 completed Not Available Not Available Not Available escitalopra m 5 mg tablet Take 1 tablet every day by oral route. active Not Available Not Available No t Available active Not Available Not Avai lable Not Available cholecalcif nicole (vitamin D3) 1,250 mcg (50,000 unit) capsule TAKE ONE CAPSULE BY MOUTH ONCE WEEKLY 07/01 completed Not Available Not Available Not Available Leticia 30 mg tablet 12/02 completed Not Available Not Available Not Available Airsupra 90 mcg-80 mcg/actuati on HFA aerosol inhaler Inhale 2 inhalatio ns 4 times a day by inhalatio n route as needed for 90 days. 07/01 completed Not Available Not Available Not Available Zepbound 5 mg/0.5 mL subcutaneou s pen injector Inject 0.5 mL every week by subcutane ous route. 04/30 completed Not Available Not Available Not Available Zepbound 2.5 mg/0.5 mL subcutaneou s pen injector ADMINISTE R 2.5 MG UNDER THE SKIN EVERY WEEK 04/30 completed Not Available Not Available Not Available Vitals Date Recorded Body height Body mass index (BMI) Body weight Body temperature Heart rate Systolic blood pressure Diastolic blood pressure Provider Name and Address Organization Details Last Updated DateTime 4 157.48 cm 54.9 kg/m2 342083. 71 g 97.8 [degF] 84 /min 122 mm[Hg] 80 mm[Hg] KACIE Bhatti [facility] [employer] 4 17:34:53 Date Recorded Body height Body mass index (BMI) Body weight Body temperature Heart rate Oxygen saturation Oxygen saturation in Arterial blood by Pulse oximetry Systolic blood pressure Diastolic blood pressure Provider Name and Address Organization Details Last Updated DateTime 4 157.48 cm 55.2 kg/m2 649677. 9 g 97.8 [degF] 78 /min 98 % 98 % 110 mm[Hg] 78 mm[Hg] Alena Galindo MA [facility] [employer] [facility] 4 17:43:35 Date Recorded Body height Body mass index (BMI) Body weight Body temperature Heart rate Systolic blood pressure Diastolic blood pressure Provider Name and Address Organization Details Last Updated DateTime 4 157.48 cm 55.1 kg/m2 290040. 3 g 97.6 [degF] 78 /min 128 mm[Hg] 72 mm[Hg] KACIE Bhatti [facility] [employer] [facility] 4 17:18:20 Date Recorded Body height Body mass index (BMI) Body weight Body temperature Heart rate Systolic blood pressure Diastolic blood pressure Provider Name and Address Organization Details Last Updated DateTime 4 157.48 cm 56.5 kg/m2 510279. 04 g 97.6 [degF] 78 /min 120 mm[Hg] 70 mm[Hg] KACIE Bhatti [place] [facility] [employer] 4 14:56:31 Date Recorded Body height Body mass index (BMI) Body weight Body temperature Heart rate Respiratory rate Oxygen saturation Oxygen saturation in Arterial blood by Pulse oximetry Pain severity - 0-10 verbal numeric rating [Score] - Reported Systolic blood pressure Diastolic blood pressure Provider Name and Address Organization Details Last Updated DateTime 4 157.48 cm 58.5 kg/m2 922292. 56 g 98.2 [degF] 77 /min 16 /min 98 % 98 % 0 126 mm[Hg] 74 mm[Hg] Mario Alberto Luong LPN [place] [facility] [employer] 4 16:52:43 Social History Question Answer Notes LastModified by Organizat ion Details LastModified Time Tobacco Smoking Status Never Smoker Not Available [facility] 12/21/2022 02:24:07 Do You Have An Advance Directive? No [id number] Information not available 12/21/2022 What Is Your Level Of Alcohol Consumption? None MIGRATION.69330 [id number] Information not available 12/21/2022 What Is Your Level Of Caffeine Consumption? Occasional MIGRATION.30139 37391 Information not available 12/21/2022 How Much Tobacco Do You Chew? None MIGRATION.36246 89850 Information not available 12/21/2022 In The 14 Days Before Symptom Onset, Have You Had Close Contact With A Laboratory-confi rmed COVID-19 While That Case Was Ill? No MIGRATION.57142 [id number] Information not available 12/21/2022 In The 14 Days Before Symptom Onset, Have You Had Close Contact With A Person Who Is Under Investigation For COVID-19 While That Person Was Ill? No MIGRATION.17785 85837 Information not available 12/21/2022 What Type Of Diet Are You Following? REGULAR MIGRATION.64166 10438 Information not available 12/21/2022 Which Illicit Or Recreational Drugs Have You Used? None MIGRATION.57479 [id number] Information not available 12/21/2022 Do You Or Have You Ever Used E-cigarettes Or Vape? Never Used Electronic Cigarettes MIGRATION.75938 54193 Information not available 12/21/2022 What Is The Highest Grade Or Level Of School You Have Completed Or The Highest Degree You Have Received? [id number] MIGRATION.47041 03908 Information not available 12/21/2022 Have There Been Any Changes To Your Family Or Social Situation? No MIGRATION.82748 96252 Information not available 12/21/2022 What Is The Fluoride Status Of Your Home? Unknown MIGRATION.72160 40672 Information not available 12/21/2022 Are There Any Guns Present In Your Home? No MIGRATION.33672 59081 Information not available 12/21/2022 Do You Use Insect Repellent Routinely? No MIGRATION.67658 64429 Information not available 12/21/2022 Where [facility] You Live? [facility] MIGRATION.32451 82734 Information not available 12/21/2022 What Was The Date Of Your Most Recent Tobacco Screening? 04/30/2024 Information not available 04/30/2024 Do You Have Any Pets? Yes MIGRATION.60566 46399 Information not available 12/21/2022 Do You Use Your Seat Belt Or Car Seat Routinely? Yes MIGRATION.18330 08574 Information not available 12/21/2022 Do You Have Smoke And Carbon Monoxide Detectors In Your Home? Yes MIGRATION.36890 31825 Information not available 12/21/2022 Are You Passively Exposed To Smoke? No MIGRATION.25716 92466 Information not available 12/21/2022 Do You Or Have You Ever Used Smokeless Tobacco? Never Used Smokeless Tobacco MIGRATION.47843 92573 Information not available 12/21/2022 Are There Any Smokers In Your House? No MIGRATION.20441 92196 Information not available 12/21/2022 Do You Feel Stressed (tense, Restless, Nervous, Or Anxious, Or Unable To Sleep At Night)? [id number] MIGRATION.06588 84530 Information not available 12/21/2022 Do You Use Any Illicit Or Recreational Drugs? No [email or web address] Information not available 02/14/2024 Do You Use Sunscreen Routinely? Yes MIGRATION.20159 69358 Information not available 12/21/2022 Has Tobacco Cessation Counseling Been Provided? No N/a Information not available 12/20/2023 Have You Recently Traveled Abroad? No MIGRATION.70716 83561 Information not available 12/21/2022 Do You Have Any Dietary Restrictions? No MIGRATION.59054 07739 Information not available 12/21/2022 Do You Or Have You Ever Used Any Other Forms Of Tobacco Or Nicotine? No MIGRATION.99506 78521 Information not available 12/21/2022 Sex: Unknown Functional Status Question Answer Note LastModified by Organizat ion Details LastModified Time What is your exercise level? Moderate [id number] Information not available 12/21/2022 Mental Status None recorded. Family History Relationship Description Onset Age of this Age Resolved Age Notes LastModified by Organization Details LastModified Time Maternal Grandmother Malignant tumor of cervix [id number] Not available 12/21/2022 02:27:11 Medical History Condition Response RHEUMATIC FEVER N BLADDER PROBLEMS N OTHER # 1 Y INFECTIOUS DISEASE N HEART ARRHYTHMIA N LUNG DISEASE/DISORDER N INSOMNIA N RADIATION / CHEMOTHERAPY N COPD N HIGH CHOLESTEROL / HYPERLIPIDEMIA N Other # 2 N HYPERTHYROIDISM N NEUROLOGICAL PROBLEMS N BLOOD DISEASES N SURGERY N EDEMA N HYPOTHYROIDISM N DEPRESSION (INCLUDING POST ) N BOWEL PROBLEMS N FEMALE PROBLEMS / INFECTIONS N HAVE YOU BEEN HOSPITALIZED OR SEEN IN [facility] ER IN THE PAST YEAR ? N MIGRAINES N STROKE/TIA N BENIGN PROSTATIC HYPERPLASIA N BREAST PROBLEMS N OBESITY N GERD/NAUSEA N ANEURYSM N OSTEOPOROSIS N URINARY/BLADDER/KIDNEY PROBLEMS N ARTHRITIS N ENDOMETRIOSIS N USE OF BLOOD THINNERS N SKIN PROBLEMS N DIABETES, TYPE N HEARTBURN / REFLUX N BLOOD CLOTS N HEPATITIS / LIVER DISEASE N ALZHEIMER'S DISEASE N HERPES N SEIZURES/EPILEPSY N HEADACHES/MIGRAINES N VARICOSITIES N GI PROBLEMS N VASCULAR DISEASE N DIZZINESS N KIDNEY DISEASE N INFERTILITY N HEART DISEASE/HEART PROBLEMS N CHEMOTHERAPY / RADIATION N HYPERTENSION N CANCER: SPECIFY N ANXIETY DISORDER N BLOOD TRANSFUSION N ANEMIA/BLOOD DISORDER N ANESTHESIA COMPLICATIONS N ATRIAL FIBRILLATION N AUTOIMMUNE DISEASE N TUBERCULOSIS N GLAUCOMA N Gynecological History Statement/Question Response How many live births 1 Abnormal Pap N Date of LMP Date of Last Pap Date of Last Pap Smear Current Control Method None Age at Menarche 12 Obstetrics History GPAL:G 3 P 1 0 2 1 Type Value Multiple Births 0 Full Term 1 Induced 0 Spontaneous 2 Premature 0 Living 1 Ectopics 0 Total 3 Immunizations Vaccine Type Date Status Note Provider Nam e and Address Organization Details Recorded Time COVID-19, mRNA, LNP-S, PF, 30 mcg/0.3 mL dose 07/01/2021 completed Not Available [facility] 11/22/202 3 05:05:17 COVID-19, mRNA, LNP-S, PF, 30 mcg/0.3 mL dose 06/04/2021 completed Not Available [facility] 3 05:05:17 Past Encounters Encounter ID Performer Location Encounter Start Date Encounter Closed Date Diagnosis/Indication Diagnosis SNOMED-CT Code Diagnosis ICD10 Code Diagnosis Note [id number] [facility] [address] [facility] [address] [place] [address] 01/08/2021 00:00:00 01/08/2021 13:53:17 [id number] [facility] [address] [facility] [address] [place] [address] 03/05/2021 00:00:00 03/05/2021 12:05:58 [id number] _ATHENA_M IGRATION_ DEFAULT_1 _1 , 03/26/2021 00:00:00 03/26/2021 11:42:59 [id number] _ATHENA_M IGRATION_ DEFAULT_1 _1 , 04/05/2021 00:00:00 04/05/2021 16:18:29 [id number] _ATHENA_M IGRATION_ DEFAULT_1 _1 , 04/19/2021 00:00:00 04/19/2021 12:44:37 [id number] _ATHENA_M IGRATION_ DEFAULT_1 _1 , 05/03/2021 00:00:00 05/03/2021 16:16:34 [id number] _ATHENA_M IGRATION_ DEFAULT_1 _1 , 05/31/2021 00:00:00 05/31/2021 16:09:29 [id number] _ATHENA_M IGRATION_ DEFAULT_1 _1 , 06/29/2021 00:00:00 06/29/2021 16:45:48 [id number] _ATHENA_M IGRATION_ DEFAULT_1 _1 , 07/27/2021 00:00:00 07/27/2021 16:47:19 [id number] _ATHENA_M IGRATION_ DEFAULT_1 _1 , 08/23/2021 00:00:00 08/23/2021 12:13:25 [id number] _ATHENA_M IGRATION_ DEFAULT_1 _1 , 09/20/2021 00:00:00 09/20/2021 14:41:23 [id number] _ATHENA_M IGRATION_ DEFAULT_1 _1 , 10/04/2021 00:00:00 10/04/2021 11:00:07 [id number] _ATHENA_M IGRATION_ DEFAULT_1 _1 , 10/19/2021 00:00:00 10/19/2021 10:42:18 [id number] [facility] [place] [address] [facility] [address] [place] [address] 01/14/2022 00:00:00 01/14/2022 16:07:21 [id number] [facility] [address] [place] [address] Ave[address] [facility] [address] [place] [address] 02/03/2022 00:00:00 02/03/2022 16:41:15 [id number] [facility] [place] [address] [place] [address] Ave[address] [facility] [address] [place] [address] 03/01/2022 00:00:00 03/01/2022 13:42:22 [id number] [facility] [address] [place] [address] Ave[address] [facility] [address] [place] [address] 03/08/2022 00:00:00 03/08/2022 11:17:19 [id number] [facility] [address] [place] [address] Ave[address] [facility] [address] [place] [address] 06/14/2022 00:00:00 06/14/2022 15:08:11 [id number] [facility] [address] [place] [address] Ave[address] [address] 07/19/2022 00:00:00 07/19/2022 15:07:40 [id number] [facility] [address] [place] [address] Ave[address] [address] 12/02/2022 00:00:00 12/02/2022 17:06:18 [id number] WAQAR Morrow [facility] [place] [facility] [place] [address] [place] [address] 02/13/2023 14:56:40 02/13/2023 15:26:45 Mixed anxiety and depressive disorder 346545587 F41.8 She self stopped her Zoloft, did not like how it made her feelshe did not start the lexaproI have given her the names of some additional counselors -recommend she get another appointmen tshe does have good support from her husbandcal l office if any change in mood or behavior She has been previously referred to psychiatry but she missed the appt- she tells me she does plan to reschedule Vitamin D deficiency 347 71935 E55.9 on supplement Iron deficiency 23677239 E61.1 on supplement Intermitte nt palpitations 381769675 R00.2 she is s/p testing with cardiology which was all normalshe will call if she becomes symptomati c or has any other episodes of palpitatio ns Irritable bowel syndrome 19026026 K58.9 on dicyclomin e prnoffered amitriptyl ine and/or GI referral, she declines Obesity 596619090 E66.9 recommend healthy, well balanced mealsfocus on lean meats, fresh vegetables , fresh fruits, whole grainsredu ce fast/proce ssed foods or eating out to no more than 1-2 times per weekaim to get 30 min of exercise most days of the week- walking is a great choice Anti-nucle ar factor detected 963970400 R76.8 has been referred to [facility] rheumatolo gy- she missed her apptencour aged her to reschedule , she states she will Right uppe r quadrant pain 138616632 R10.11 Has order for gallbladde r ultrasound - decided not to get it donenow not having symptoms Epigastric pain 66794994 R10.13 we sent her in some omeprazole , she decided not to take it, is no longer having symptoms Lymphadenopathy 03422688 R59.0 reassuranc e- likely reactive to her reaction to the chemical the salon used in her hairthey are starting to improvecon tinue to monitor, if no improvemen t in 2 weeks, call office [id number] WAQAR [facility] Internal Med [place] [address] [place] [address] 07/21/2023 14:36:09 07/21/2023 14:55:55 Adult health examination 496119771 Z00.01 [facility] work form filled out for her Mixed anxi ety and depressive disorder 286763162 F41.8 She self stopped her Zoloft, did not like how it made her feelshe did not start the lexaproI have previously given her the names of some additional counselors -recommend she get another appointmen tshe does have good support from her husbandcal l office if any change in mood or behavior She has been previously referred to psychiatry but she missed the appt- she has decided not to go Vitamin D deficiency 347 19252 E55.9 on supplement Iron deficiency 48014234 E61.1 on supplement Intermitte nt palpitations 546920380 R00.2 she is s/p testing with cardiology which was all normalshe will call if she becomes symptomati c or has any other episodes of palpitatio ns Irritable bowel syndrome 83705048 K58.9 on dicyclomin e prnoffered amitriptyl ine and/or GI referral, she declines Obesity 241277183 E66.9 recommend healthy, well balanced mealsfocus on lean meats, fresh vegetables , fresh fruits, whole grainsredu ce fast/proce ssed foods or eating out to no more than 1-2 times per weekaim to get 30 min of exercise most days of the week- walking is a great choice Anti-nucle ar factor detected 537015256 R76.8 has been referred to U rheumatolo gy- she missed her apptencour aged her to reschedule Right uppe r quadrant pain 926607616 R10.11 Has order for gallbladde r ultrasound - decided not to get it donenow not having symptoms Epigastric pain 19329060 R10.13 we sent her in some omeprazole , she decided not to take it, is no longer having symptoms Depression screening 171 971724 Z13.31 [id number] WAQAR [facility] Internal Med [address] [facility] [address] [place] [address] 08/08/2023 10:03:01 08/08/2023 10:43:42 Mixed anxiety and depressive disorder 167650397 F41.8 She self stopped her Zoloft, did not like how it made her feelshe did not start the lexaproI have previously given her the names of some additional counselors -recommend she get another appointmen tshe does have good support from her husbandcal l office if any change in mood or behavior She has been previously referred to psychiatry but she missed the appt- she has decided not to go Vitamin D deficiency 347 37581 E55.9 on supplement Iron deficiency 42986987 E61.1 on supplement Intermitte nt palpitations 828596160 R00.2 she is s/p testing with cardiology which was all normalshe will call if she becomes symptomati c or has any other episodes of palpitatio ns Irritable bowel syndrome 18752938 K58.9 on dicyclomin e prnoffered amitriptyl ine and/or GI referral, she declines Obesity 915910968 E66.9 recommend healthy, well balanced mealsfocus on lean meats, fresh vegetables , fresh fruits, whole grainsredu ce fast/proce ssed foods or eating out to no more than 1-2 times per weekaim to get 30 min of exercise most days of the week- walking is a great choice Anti-nucle ar factor detected 367145700 R76.8 has been referred to U rheumatolo gy- she missed her apptencour aged her to reschedule Right uppe r quadrant pain 786308179 R10.11 reordered gallbladde r u/s- encouraged her to get this doneER precaution s Epigastric pain 35531173 R10.13 I reordered her the omeprazole - encouraged her to start thisER precaution s Hyperlipid emia screening 891071991 Z13.220 Diabetes m ellitus screening 402502512 Z13.1 Thyroid di sorder screening 098418695 Z13.29 Altered alberto wel function 64744673 R19.4 get cscope per her request Viral syndrome 587600877 B34.9 Offered her an order for a COVID test, she would prefer to take 1 at home and call us back with the resultCan take OTC cold medsIf no improvemen t after a week, call office; urgent care if worse Acid reflux 419564087 K2 1.9 start omeprazole as aboveavoid fatty/spic y/acidic foods [id number] Modesta soto MD [facility] [place] [address] [facility] [address] [place] [address] 12/20/2023 17:24:11 12/20/2023 18:12:27 Screening - NAD 734933828 Z13.9 WWE: Needs to see OB Get yearly flu shot, get Tdap if not doneGet COVID 19 vaccine and its boosters RTC in 6 months, do labs, ER if worse, she did verbalize her understand ing of the above Gynecologi c examination 39166676 Z01.419 Mixed anxi ety and depressive disorder 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 F41.8 Could not tolerate zoloft or lexaproNot suicidal or homicidalN ow agrees to see psychiatry Iron defic iency anemia 50121578 D50.9 Get labs Vitamin D deficiency 347 42187 E55.9 Get vit d level Serum miller min B12 below reference range 134622959 R79.89 Hyperlipidemia 69154885 E78.5 Not on any meds, get labs Gastroesop hageal reflux disease without esophagitis 444617064 K21.9 On omprazole PRN, Get the EGD report Irritable bowel syndrome 97654422 K58.9 Get a referral to GI, Get the C-scope report Anti-nucle ar factor detected 926145196 R76.8 Referred to [facility] rheumatolo gy, states that she did not want to go to them as rheumatolo gy dept said they would not see her, declines any referrals Obesity 560554246 E66.9 She is to discuss with her insurance if she can be on GLP-1No MEN2 ot MCT or parathyroi d or pancreatic issues [id number] Modesta soto MD [facility] [place] [address] [place] [address] 02/14/2024 17:33:02 02/14/2024 18:07:57 Obesity 117357346 E66.9 She is to discuss with her insurance if she can be on GLP-1No MEN2 ot MCT or parathyroi d or pancreatic issues OV 02/14/2024 :Get on zepbound, all side effects explained to her, she will bring the pen for demo on how to use it, again explained all the side effects for this medication to her Mixed anxi ety and depressive disorder 830906930 F41.8 Could not tolerate zoloft or lexaproNot suicidal or homicidalN ow agrees to see psychiatry OV 02/14/2024 :Now on sertraline 25mgdamagedG ciara by psychiatry , states that this is working very well for her [id number] Modesta soto MD [facility] Internal Med [place] [address] [facility] [address] , [place] [address] 02/21/2024 17:11:43 02/21/2024 17:50:10 Screening - NAD 829077571 Z13.9 WWE: Sees Trina Chaudhary MD Get yearly flu shot, get Tdap if not doneGet COVID 19 vaccine and its boosters RTC in 4 months, do labs, ER if worse, she did verbalize her understand ing of the above Mixed anxi ety and depressive disorder 427092282 F41.8 Could not tolerate zoloft or lexaproNot suicidal or homicidalN ow agrees to see psychiatry OV 02/21/2024 :On sertraline 25mg dailySees Cristina Fernández CHIEF OPERATING ENGINEER for Dr Luong suicidal or homicidal Iron defic iency anemia 77593414 D50.9 Get labs Vitamin D deficiency 347 75337 E55.9 Get vit d level Serum miller min B12 below reference range 051860838 R79.89 Hyperlipidemia 06223173 E78.5 Not on any meds, get labs Gastroesop hageal reflux disease without esophagitis 812418368 K21.9 On omprazole PRN, Get the EGD report Irritable bowel syndrome 54348163 K58.9 Get a referral to GI, Get the C-scope reportHas seen GI Anti-nucle ar factor detected 156945151 R76.8 Referred to U rheumatroger gy, states that she did not want to go to them as rheumatolo gy dept said they would not see her, declines any referrals Obesity 194594298 E66.9 She is to discuss with her insurance if she can be on GLP-1No MEN2 ot MCT or parathyroi d or pancreatic issues OV 02/21/2024 :On zepboundTe aching on use of pen provided, all side effects explained, will call for refill once done with 2.5mg weekly doses Asthma 580081941 J45.90 9 On albuterolC an do airsupra, all side effects explained 02/21/2024 [id number] Modesta soto MD [facility] Internal Med [facility] [address] [facility], [address] [place] [address] 04/30/2024 14:40:59 04/30/2024 15:22:06 Screening - NAD 726541190 Z13.9 WWE: Sees Trina Chaudhary MD Get yearly flu shot, get Tdap if not doneGet COVID 19 vaccine and its boosters RTC in 4 months, do labs, ER if worse, she did verbalize her understand ing of the above Mixed anxi ety and depressive disorder 413431368 F41.8 Could not tolerate zoloft or lexaproNot suicidal or homicidalN ow agrees to see psychiatry OV 02/21/2024 :On sertraline 25mg dailySees Cristina Fernández CHIEF OPERATING ENGINEER for Dr Luong suicidal or homicidal OV 04/30/2024 :On sertraline 25mg and 50mg daily given by Cristina Fernández NPOn bupropion XL 150mg daily given by Cristina Fernández NPNot suicidal or homicidalS he will need to discuss the use of these while she is , reviewed Iron defic iency anemia 68286049 D50.9 On iron, should continue with this till labs done as she is Ge t labs Vitamin D deficiency 347 39679 E55.9 Get vit d level Serum miller min B12 below reference range 316225021 R79.89 Hyperlipidemia 34920553 E78.5 Not on any meds, get labs Gastroesop hageal reflux disease without esophagitis 836906429 K21.9 On omprazole PRN, now must use this only as needed as she is , discuss with her OBGet the EGD report Irritable bowel syndrome 65288870 K58.9 Get a referral to GI, Get the C-scope reportHas seen GI Anti-nucle ar factor detected 553062392 R76.8 Referred to [facility] rheumatroger zimmerman, states that she did not want to go to them as rheumatroger gy dept said they would not see her, declines any referrals Obesity 428735270 E66.9 She is to discuss with her insurance if she can be on GLP-1No MEN2 ot MCT or parathyroi d or pancreatic issues OV 02/21/2024 :On zepboundTe aching on use of pen provided, all side effects explained, will call for refill once done with 2.5mg weekly doses OV 04/30/2024 : NOT to take any GLP-1 as she is , she states that she is not taking this at this time Asthma 478396913 J45.90 9 On airsupra, stop this and get back on proair as needed, as she wants to take the least amount of medication s [id number] Modesta soto MD [facility] Internal Med [place] [address] [facility] , [place] [address] 07/01/2024 16:37:32 07/01/2024 17:43:49 Screening - NAD 759453924 Z13.9 WWE: Sees Trina Chaudhary MD Get yearly flu shot, get Tdap if not doneGet COVID 19 vaccine and its boosters RTC in 9 months, do labs, ER if worse, she did verbalize her understand ing of the above Mixed anxi ety and depressive disorder 055381058 F41.8 Could not tolerate zoloft or lexaproNot suicidal or homicidalN ow agrees to see psychiatry OV 02/21/2024 :On sertraline 25mg dailySees Cristina Fernández NP for Dr Luong suicidal or homicidal OV 04/30/2024 :On sertraline 25mg and 50mg daily given by Cristina Fernández NPOn bupropion XL 150mg daily given by Cristina Fernández NPNot suicidal or homicidalS he will need to discuss the use of these while she is , reviewed OV 07/01/2024 : Not on any meds for now, not suicidal or homicidal Iron defic iency anemia 37814237 D50.9 On iron, should continue with this till labs done as she is Ge t labs Vitamin D deficiency 347 01786 E55.9 Get vit d level Serum miller min B12 below reference range 708338553 R79.89 Hyperlipidemia 19530663 E78.5 Not on any meds, get labs Gastroesop hageal reflux disease without esophagitis 746873933 K21.9 On omprazole PRN, now must use this only as needed as she is , discuss with her OBGet the EGD report Irritable bowel syndrome 12530787 K58.9 Get a referral to GI, Get the C-scope reportHas seen GI Anti-nucle ar factor detected 768798142 R76.8 Referred to [facility] rheumatroger zimmerman, states that she did not want to go to them as rheumatolo gy dept said they would not see her, declines any referrals Obesity 058702569 E66.9 She is to discuss with her insurance if she can be on GLP-1No MEN2 ot MCT or parathyroi d or pancreatic issues OV 02/21/2024 :On zepboundTe aching on use of pen provided, all side effects explained, will call for refill once done with 2.5mg weekly doses OV 04/30/2024 : NOT to take any GLP-1 as she is , she states that she is not taking this at this time 07/01/2024 : Not on any GLP-1 Asthma 554212054 J45.90 9 On airsupra, stop this and get back on proair as needed, as she wants to take the least amount of medication s OV 07/01/2024 : Should be on proair not airsupra Health Concerns Section Related Observation LastModified by Organization Detai ls LastModified Time None Recorded Concern Status LastModified by Organization Details LastModified Time None Recorded Advance Directives Directive N: Payers Encounter Date Sequence Insurance Name Policy Number Policy Luna Covered Member ID Luna Member ID Guarantor Name 12/20/2023 1 [place] [id number] Martin Gómez [id number] Miguel Ángel Gómez 02/14/2024 1 [place] [id number] Martin Gómez [id number] Miguel Ángel Gómez 02/21/2024 1 [place] [id number] Martin W Beckstrom [id number] Miguel Ángel Beckstrom 04/30/2024 1 [place] [id number] Martin W Beckstrom [id number] Miguel Ángel Beckstrom 07/01/2024 1 [place] [id number] Martin W Beckstrom [id number] Miguel Ángel Gómez Notes Date Note Type Note Provider Name and Address Organization Details Recorded Time 12/20/2023 text/html OV 12/20/2023:Here to establish care Past Hx:DepressionAne miaIBSANA +veGERD Here to discuss above and get labs Modesta Rayo MD [address], [place], [address], [address] [facility] [employer] [facility] 12/20/2023 18:11:55 02/14/2024 text/html OV 12/20/2023:Here to establish care Past Hx:DepressionAne miaIBSANA +veGERD Here to discuss above and get labs OV 02/14/2024:Here to discuss her obesity, she would like to get on Zepbound Modesta Rayo MD [address], [place], [address], [address] [facility] [employer] 02/14/2024 18:13:02 02/21/2024 text/html OV 12/20/2023:Here to establish care Past Hx:DepressionAne miaIBSANA +veGERD Here to discuss above and get labs OV 02/14/2024:Here to discuss her obesity, she would like to get on Zepbound Modesta Rayo MD [address], [place], [address], [address] [facility] [employer] 02/21/2024 17:52:40 04/30/2024 text/html OV 12/20/2023:Here to establish care Past Hx:DepressionAne miaIBSANA +veGERD Here to discuss above and get labs OV 02/14/2024:Here to discuss her obesity, she would like to get on Zepbound OV 04/30/2024: Here for her f/u apt, she is doing well today, she is now , states taht she is not taking any of the zepbound at this time Modesta Rayo MD [address], [address], [place], [address], [facility] [employer] [facility] 05/19/2024 20:16:09 07/01/2024 text/html OV 12/20/2023:Here to establish care Past Hx:DepressionAne miaIBSANA +veGERD Here to discuss above and get labs OV 02/14/2024:Here to discuss her obesity, she would like to get on Zepbound OV 04/30/2024: Here for her f/u apt, she is doing well today, she is now , states taht she is not taking any of the zepbound at this time OV 07/01/2024: Here for her f/u apt, she has seen Dr Trina Chaudhary as she is , is doing well, has noted some fatigue, she has done labs by her OB Modesta Rayo MD [address], [address], [place], [address], [address] [employer] 07/01/2024 18:50:32 OBGyn Episode No OBEpisode recorded.
[2024-12-26 17:56] LABS: Basophils Percent Auto 0.1 % (0.2-1.2); Eosinophils Percent Auto 0.2 % (0-4.4); Hematocrit 34.1 % (37.0-47.0); Immature Granulocyte Absolute 0.04 K/mm3 (0.00-0.031); Immature Granulocyte Percent A 0.4 % (0-0.5); Lymphocytes Absolute Auto 1.81 K/mm3 (0.9-3.2); Mean Corpuscular HGB Conc 32.3 g/dl (32-36); Mean Corpuscular Hemoglobin 25.3 pg (26-34); Mean Corpuscular Volume 78.4 fl (80-100); Mean Platelet Volume 10.7 fl (7.4-10.4); Monocytes Absolute Auto 0.6 K/mm3 (0.1-0.6); Monocytes Percent Auto 6.4 % (2.6-8.5); Neutrophils Absolute Auto 6.6 K/mm3 (1.3-6.7); Neutrophils Percent Auto 72.9 % (45.5-73.1); Platelet Count Result 265 k/mm3 (150-375); Red Blood Count 4.35 M/mm3 (4.2-5.4); White Blood Count 9.1 K/mm3 (4.5-10.0)
[2024-12-26] MEDS: DINOPROSTONE 10 MG VAG INSERT VAGINAL (18:02)
--- NOTE | 2024-12-26 18:17 | LDADM ---
This patient, Miguel Ángel Gómez, was admitted to Labor/Delivery/Recovery 107 on 12/26/24 at 16:57. Plans for labor, pain management and were discussed with patient. Patient/family oriented to hospital policies and general routines including ID bracelet, bed and alarms, visiting hours, pain management, procedures, bathroom and other care routines, personal items, smoking policy, room service/diet and guest tray routines, infant security routines, and visiting hours. Patient/Family are encouraged to report perceived risks to care and to ask questions if they do not understand what they are told or what they should do. See OBIX for further documentation.
[2024-12-26 18:47] LABS: HIV 1/2 Ab P24 Ag Result Negative (Negative)
[2024-12-26 18:48] LABS: Syphilis IgG/IgM Antibody Negative (Negative)
[2024-12-27] VITALS (190 sets, daily range): BP systolic 88–154; BP diastolic 37–115; PULSE 25–145; RESP 18; TEMP 36.2–37.5; O2SAT 86–100
[2024-12-27] MEDS: OXYTOCIN 30 UNITS/NS 500 ML 30 UNITS/500 ML BAG IV CONT (05:15)
[2024-12-27] MEDS: LACTATED RINGERS 1,000 ML 125 ML IV CONT ×2 (05:15→14:22)
--- NOTE | 2024-12-27 09:24 | WPDANESEPPF ---
Anes - Initial Pre Proc Eval Procedure: Labor Epidural Date/Time: 12/27/24 09:24 Surgeon: Timmy Peña MD Pre Op Diagnosis: Induction of Labor Patient Data Age: 29 Gender: F Height: 1.57 m Weight: 153.314 kg Last Vital Signs Temp 36.4 C 12/27/24 02:00 Pulse 83 12/27/24 09:16 BP 134/79 12/27/24 09:16 O2 Del Method Room Air 12/26/24 18:17 Allergies Allergy/AdvReac Type Severity Reaction Status Date / Time No Known Allergies Allergy Verified 12/23/24 08:58 Home Medications ?Medication ?Instructions ?Recorded ?Confirmed ?Type docosahexaenoic acid 200 mg 200 mg PO DAILY 05/29/24 12/26/24 History capsule ( DHA) aspirin 81 mg tablet,delayed 162 mg PO DAILY 11/26/24 12/26/24 History release (Adult Low Dose Aspirin) Laboratory Tests 12/26/24 17:48 WBC 9.1 K/mm3 (4.5-10.0) RBC 4.35 M/mm3 (4.2-5.4) Hgb 11.0 L g/dL (12.0-15.0) Hct 34.1 L % (37.0-47.0) MCV 78.4 L fl (80-100) MCH 25.3 L pg (26-34) MCHC 32.3 g/dl (32-36) RDW 15.0 H % (11.5-14.5) Plt Count 265 k/mm3 (150-375) MPV 10.7 H fl (7.4-10.4) Immature Gran % (Auto) 0.4 % (0-0.5) Neut % (Auto) 72.9 % (45.5-73.1) Lymph % (Auto) 20.0 % (18.3-44.2) Payette % (Auto) 6.4 % (2.6-8.5) Eos % (Auto) 0.2 % (0-4.4) Baso % (Auto) 0.1 L % (0.2-1.2) Lymph # (Auto) 1.81 K/mm3 (0.9-3.2) Payette # (Auto) 0.6 K/mm3 (0.1-0.6) Eos # (Auto) 0.0 K/mm3 (0-0.3) Baso # (Auto) 0.0 K/mm3 (0.0-0.1) Abs Immat Gran (auto) 0.04 H K/mm3 (0.00-0.031) Absolute Neuts (auto) 6.6 K/mm3 (1.3-6.7) Absolute Nucleated RBC 0.000 K/mm3 (0.0-0.012) Nucleated RBC % 0.0 % (0.0-0.2) Syphilis IgG/IgM Ab Negative (Negative) HIV 1&2 Ab/P24 Ag 4thGn Negative (Negative) Blood Type A Positive Antibody Screen Negative : gestational age (ED01/02/25) Patient hx anesthesia problems: none Family hx anesthesia problems: none Results Review: All pre-operative results and documents have been reviewed as part of the pre-operative evaluation. [facility] Past Medical History Medical History Asthma Surgical History Surgical History [place] teeth extracted History of dilation and curettage 2020 missed AB Family History Family History Grandparent Cervical cancer Father Uterine polyp Social History Social History Smoking status: Never smoker Second hand tobacco smoke exposure: No Alcohol intake: former Alcohol use details: soically Substance use: never Substance use type: does not use Do You Feel Safe in your Home?: Yes Lack of Transportation: No Lack of Food: Never True Current Housing: I Have Housing Concerned About Future Housing: No Difficulty Paying Gas/Electric Bills: No Difficulty Paying for Meds: No Currently Unemployed: No Education: High School Diploma/GED Difficulty w/ Childcare or Family Care: No Living arrangements: with family Additional living arrangements comments: Occupation/Education: occupation 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 Gender identity (if verbalized by the patient): Female Sexual Orientation (if Verbalized by the Patient): Straight or Heterosexual Spiritual care concerns: No Anes - Eval Final PreProcedure Day of Procedure 12/27/24 09:24 Patient weight: super morbidly obese Heart: regular rate and rhythm Lungs: normal air movement Airway: Mallampati scale class III Neurological: alert and oriented ASA classification: III Emergent: no Anesthetic plan: proceed Anesthesia type and monitoring: regional epidural Results Review: All pre-operative results and documents have been reviewed as part of the pre-operative evaluation. Informed Consent: The patient's anesthetic plan and its attendant risks and benefits were discussed with the patient/family/POA. Questions were solicited and answers provided to the satisfaction of the patient/family/POA.
[2024-12-27] MEDS: ONDANSETRON INJ 4 MG/2 ML VIAL IV PUSH (16:34)
--- NOTE | 2024-12-27 17:15 | WPDHPUPDATE1 ---
History and Physical Update Update Date/Time: 12/27/24 17:15 History and Physical has been reviewed, including an updated exam of the patient. There are NO changes in the patient's condition. Risks, benefits, and alternatives have been discussed and questions answered. Patient agrees to proceed with procedure.
--- NOTE | 2024-12-27 19:19 | WPDOBADMIT ---
Obstetrics - Admit Note Admission Note: record reviewed. No pertinent additions to the history and/or any subsequent changes in the physical findings that are not consistent with the expected course of the were found. Additions to the history and/or subsequent changes in the physical findings follow. None.
--- NOTE | 2024-12-27 19:19 | PM.OBPRVD ---
OB - Vaginal Delivery Note Procedure Delivery date: 12/27/24 Events: Chronic Hypertension Induction method: Per Cervidil Protocol Delivery augmentation: Rupture of Membranes and Pitocin Delivery monitor: External FHT and Internal Uterine Route of delivery: Episiotomy description: None Laceration Description: None Specimen: Yes Quantitative Blood Loss (ml): 300 Anesthesia type: Epidural Disposition: PACU Complications: No immediate complications Narrative: Prepped and draped usual manner for this procedure. Maternal expulsive efforts delivered vertex without difficulty. Cord clamped and cut and placenta delivered spontaneously. Uterus was well contracted and minimal bleeding. Cervix vagina vulva were inspected with no lacerations or tears. Immediate postoperative condition of mother baby were both excellent. Baby Gestational Age by Date: 38 Infant gender: Male presentation: vertex position: Right Occiput Anterior Placenta delivery description: Spontaneous Cord Vessel Description: 3 Vessels
[2024-12-27] MEDS: OXYTOCIN 30 UNITS/NS 500 ML 30 UNITS/500 ML BAG 125 UNITS IV CONT (19:38)
[2024-12-27] MEDS: ACETAMINOPHEN 325 MG TABLET 650 MG PO (20:04)
[2024-12-27] MEDS: WITCH HAZEL 40 PADS 1 PAD TOPICAL (22:02)
[2024-12-27] MEDS: BENZOCAINE 20% AER SPR (*SP) 56 GM CAN 1 SPRAY TOPICAL (22:02)
--- NOTE | 2024-12-27 22:10 | OBPPTRN ---
Patient transferred to post room #283 via w/c. Support person present. Oriented to unit, room, information board, rooming in, admission packet and security measures. Patient verbalizes understanding.
[2024-12-27] MEDS: IBUPROFEN 600 MG TABLET PO (22:30)
[2024-12-28 02:30] VITALS: BP 110/66; PULSE 82; RESP 18; TEMP 36.6
[2024-12-28 05:17] LABS: Hematocrit 31.5 % (37.0-47.0); Hemoglobin 9.8 g/dL (12.0-15.0)
[2024-12-28 07:20] VITALS: BP 146/78; PULSE 74; RESP 20; TEMP 37; O2SAT 98
[2024-12-28] MEDS: DOCUSATE SODIUM 100 MG CAPSULE PO ×2 (07:21→16:33)
[2024-12-28] MEDS: POLYSACCHARIDE IRON COMPLEX 150 MG CAPSULE PO ×2 (07:21→16:33)
[2024-12-28] MEDS: MULTIVIT/MIN/PREN/FOL AC/IRON TABLET 1 TAB PO (07:21)
[2024-12-28] MEDS: IBUPROFEN 600 MG TABLET PO ×2 (07:22→16:33)
--- NOTE | 2024-12-28 08:30 | PM.OBDSVD ---
DS: Admitting Diagnosis Discharge Date 12/29/2024 Admitting Diagnosis Chronic hypertension DS: Discharge Diagnosis Discharge Diagnosis (1) , delivered: Code(s): O80 - Encounter for full-term uncomplicated delivery Status: Acute (2) Gestational hypertension: Qualifiers: Trimester: third trimester Qualified Code(s): O13.3 - Gestational [-induced] hypertension without significant proteinuria, third trimester Code(s): O13.9 - Gestational [-induced] hypertension without significant proteinuria, unspecified trimester Status: Acute OB - DS: Summary OB Procedures : NST OB Procedures Intrapartum: Spontaneous Vag Delivery OB Procedures: : None Peripartum Data Laceration Description: None Episiotomy description: None Procedures: Procedures Operation Date: 12/26/24 12:00 <No data on this case meets the specified criteria> Time Spent with Patient Time attestation: Total time spent providing and/or coordinating discharge services: DS: Data Data Completed and Pending Labs on day of discharge: Labs from last 24 hours 12/28/24 04:41 Hgb 9.8 L Hct 31.5 L Discharge Plan Discharge Discharging Clinician: Timmy Peña Patient Disposition: Home, Self-Care Activity: may shower, follow weight bearing status and pelvic rest Diet: as tolerated Patient Instructions: Antibiotic Form Patient Language: Turkmen Stand Alone Forms: General Discharge Information Follow-up/Referrals: Timmy Peña MD [Physician] - 4 Weeks Discharge Medications: New ibuprofen 600 mg Tablet 600 mg PO Q6H PRN (Reason: Cramping) Qty: 30 0RF Continued DHA 200 mg capsule 200 mg PO DAILY Discontinued aspirin [Adult Low Dose Aspirin] 81 mg tablet,delayed release (DR/EC) 162 mg PO DAILY Date of admission: 12/26/24 16:57 Primary Care Provider: UNKNOWN,DOCTOR Admitting Provider: Timmy Peña Attending physician on admission: Timmy Peña Condition: Stable
--- NOTE | 2024-12-28 11:15 | PC.NURSE ---
Introductions were made, then consulted with patient to assess needs related to . Discussed with mother her?plans to feed?her and the?experience so far. Baby has been sleepy overnight and was circumcised this morning. Reviewed normal behaviors. Patient requested lanolin and it was provided. Patient is encouraged to call out for assistance today. Resources provided for inpatient and outpatient services with the feeding sheet, mom/baby guide and name written on the communication board. Mother voiced understanding of information and will call if there is a request for assistance. Reported to the Primary RN.
[2024-12-28 12:30] VITALS: BP 128/71; PULSE 81; RESP 18; TEMP 36.8; O2SAT 100
[2024-12-28] MEDS: ACETAMINOPHEN 325 MG TABLET 650 MG PO (12:33)
[2024-12-28] MEDS: SIMETHICONE 80 MG TAB.CHEW PO (16:48)
[2024-12-28 19:30] VITALS: BP 138/82; PULSE 80; RESP 18; TEMP 36.6
[2024-12-29] MEDS: IBUPROFEN 600 MG TABLET PO ×2 (00:30→08:08)
--- NOTE | 2024-12-29 03:04 | PC.NURSE ---
Daylight Savings Time For Daylight Savings Time Beginning in the Spring - Clocks are moved ahead. For [facility], the time of change occurs at 0200 hrs. Time is taken from the server engineer. This entry on the patient's chart recognizes the change in time reflected during documentation. Example: 2 entries for vital signs may be charted for 0200 hrs.
[2024-12-29] MEDS: DOCUSATE SODIUM 100 MG CAPSULE PO (08:08)
[2024-12-29] MEDS: MULTIVIT/MIN/PREN/FOL AC/IRON TABLET 1 TAB PO (08:08)
[2024-12-29] MEDS: POLYSACCHARIDE IRON COMPLEX 150 MG CAPSULE PO (08:08)
[2024-12-29] MEDS: SIMETHICONE 80 MG TAB.CHEW PO (08:09)
[2024-12-29 08:42] VITALS: BP 143/91; PULSE 77; RESP 18; TEMP 36.6; O2SAT 100
[2024-12-29 13:01] VITALS: BP 134/81
[2024-12-30 15:23] VITALS: BP 134/89; PULSE 85; RESP 18; TEMP 37.2; O2SAT 100
--- NOTE | 2024-12-30 16:21 | PC.NURSE ---
1500 -- Miguel Ángel was here for a follow up visit, very tearful, states she has not had much sleep, informed this is fairly normal with a but also important to get sleep when she can, started taking her Zoloft today, talked to her about the fact that it will take a few days to work well but if it doesn't she should call her therapist and discuss options with them states that baby has been cluster feeding and not sure if her milk is coming in or not, talked at length about breast feeding -- milk should come in in the next few days and if it does not that she may need to supplement, she stated that her milk never came in with her last baby but she never put that baby to breast talked about breast feeding plan and she has several options 1. put baby to breast, feed both sides, then pump and feed pumped milk out of bottle and supplement if needed 2. pump and feed out of a bottle exclusively, supplement if needed states that the reason she is breast feeding this time is due to the expense of formula states that she is willing to continue to work at the breast feeding she also complained of nausea to the point that she has not been able to eat or drink well, instructed to call her physician and discuss this problem today or tomorrow and that it is important to get the food, fluids and rest that she needs in order to produce a good supply of milk and to be able to emotionally take care of herself and her baby encouragement given seemed to be positive about working on the issues she is having
== END 2024-12-29 14:07 | disposition home or self-care (01) | DRG 807 ==
LOC: ANHLDR 17:01 → ANHOB2 12-27 22:18
PROVIDERS: Admitting Provider Obstetrics & Gynecology; Visit Provider Obstetrics & Gynecology
DX: O10.92 Unspecified pre-existing hypertension complicating childbirth (principal); Z37.0 Single live birth; O99.214 Obesity complicating childbirth; E66.01 Morbid (severe) obesity due to excess calories; Z3A.38 38 weeks gestation of pregnancy
CPT/HCPCS: 36415; 85014; 85018; 85025; 86593; 86703; 86850; 86900; 86901; 88307; A9270; G0432; J2405; J2590; J2795; J7120